=== PATIENT | female | born 1975 | race Caucasian/White ===

== ENCOUNTER 2023-02-15 21:17 | Emergency (ER) | payer BC, SELFPAY ==
[2023-02-15] VITALS (12 sets, daily range): BP systolic 113–148; BP diastolic 74–93; PULSE 88–110; RESP 16–22; TEMP 36.4; O2SAT 94–100
--- NOTE | 2023-02-15 21:33 | ED.GENADUL1 ---
HPI - General Adult General Chief complaint: Shortness of Breath/Dyspnea Stated complaint: shortness of breath Time Seen by Provider: 02/15/23 21:23 Source: patient Mode of arrival: Wheelchair History of Present Illness HPI narrative: Patient started control pills about 6 months ago to help with her uterine fibroids and menorrhagia. She does not smoke. She denied any airline flights, periods of inactivity or other actions that might have led to DVT or PE. However last week she developed some shortness of breath. She saw her PCP in [place] 2 days ago and had blood testing including D-Dimer. When the D-Dimer was positive she was sent for CTA chest. That apparently revealed pulmonary emboli so she was sent to the ED. She said that they found 3 areas of DVT on right LE US. She received 10mg dose of Eliquis last evening and was discharged home with prescription for additional Eliquis - she has taken two additional doses today. She now presents to our ED. She told me that she did not have a good experience at [place] [facility] but could not elaborate. That is why she came to [place] to be re-evaluated. No fever, chills, cough, vomiting or diarrhea. No abdominal pain or chest pain. No syncope but on questioning she did tell me that she got a little bit dizzy today . Related Data Home Medications Medication Instructions Recorded Confirmed apixaban 5 mg tablet (Eliquis) 5 mg PO BID 02/15/23 02/15/23 bisoprolol 5 1 tab PO DAILY 02/15/23 02/15/23 mg-hydrochlorothiazide 6.25 mg tablet levothyroxine 125 mcg tablet 125 mcg PO DAILY 02/15/23 02/15/23 (Synthroid) megestrol 20 mg tablet 20 mg PO DAILY 02/15/23 02/15/23 metformin 500 mg tablet,extended 500 mg PO DAILY 02/15/23 02/15/23 release 24 hr norgestimate 0.25 mg-ethinyl 1 tab PO DAILY 02/15/23 02/15/23 estradiol 35 mcg tablet pantoprazole 40 mg tablet,delayed 40 mg PO DAILY 02/15/23 02/15/23 release polysaccharide iron complex 180 mg 180 mg PO BID 02/15/23 02/15/23 iron capsule (Pro Fe) tramadol 50 mg tablet 50 mg PO TID PRN pain 02/15/23 02/15/23 Allergies Allergy/AdvReac Type Severity Reaction Status Date / Time No Known Drug Allergies Allergy Verified 02/15/23 21:22 Exam Narrative Exam Narrative: Nurses notes and vital signs reviewed and patient is not hypoxic. afebrile General: Well-appearing and in no apparent distress. Skin: Warm, dry, no pallor noted. No rash. Head: Normocephalic, atraumatic. Eye: Pupils are equal, round and EOMI. No scleral icterus. Cardiovascular: Tachycardia. Respiratory: No accessory muscle use or respiratory distress. Lungs are clear to auscultation, no wheezing, rales or rhonchi Musculoskeletal: normal ROM, right calf and popliteal tenderness, right lower extremity swelling GI: Abdomen is soft, non-distended. Normal bowel sounds. No tenderness to palpation. No rebound, guarding, or rigidity noted. Neurological: A&O x4. No cranial nerve dysfunction observed. No truncal ataxia. Moves all extremities. Sensation intact. Psychiatric: Cooperative and interactive. Normal mood and affect. Constitutional Vital Signs, click to edit/add: Last Vital Signs Temp 97.6 F 02/15/23 21:22 Pulse 90 02/15/23 23:00 Resp 20 02/15/23 23:00 BP 128/85 02/15/23 23:00 Pulse Ox 94 L 02/15/23 23:00 O2 Del Method Room Air 02/15/23 21:31 Course Vital Signs Vital signs: Vital Signs Temperature 97.6 F 02/15/23 21:22 Pulse Rate 109 H 02/15/23 21:22 Respiratory Rate 20 02/15/23 21:22 Blood Pressure 148/88 H 02/15/23 21:22 Pulse Oximetry 99 02/15/23 21:22 Oxygen Delivery Method Room Air 02/15/23 21:22 Temperature 97.6 F 02/15/23 21:22 Pulse Rate 90 02/15/23 23:00 Respiratory Rate 20 02/15/23 23:00 Blood Pressure 128/85 02/15/23 23:00 Pulse Oximetry 94 L 02/15/23 23:00 Oxygen Delivery Method Room Air 02/15/23 21:31 Medical Decision Making MDM Narrative Medical decision making narrative: Patient was placed on nurse monitoring and EKG obtained. Blood drawn and sent for evaluation. I asked the emergency secretary board of commissioners to call over to the emergency Department to receive a copy of the patient's Emergency Department visit documentation. Repeat CT anterior chest was ordered. Normal WBC. Hb 8.8 - was 9.2 yesterday. No active bleeding. MC indices consistent with iron deficiency, for which she gets iron infusions. BMP normal. Troponin and BNP negative. Radiologist called to speak with me - he notes PE in every right lobe of the lung and in the LLL. He sees right ventricular enlargement suggestive of right heart strain. Case discussed with Dr Lares, including radiologist's findings - he recommended discharging the patient home, having her continue her Eliquis and he will see her in the office and get an out-patient echocardiogram and monitor the patient's progress. Patient informed of findings and details of diagnosis and treatment plan discussed including follow up with Dr Lares. Discussed that for the first 7 days the eliquis dose is 10mg BID then 5mg BID after that. Medical Records Medical records reviewed: Yes I reviewed the patient's medical records Medical records narrative: I received a copy of the patient's emergency department chart from [facility]. There is no mention of lower extremity ultrasound on this chart. I also do not have a copy of the patient's CT report. It did indicate that the patient was started on oral L requests after discussion with Dr. Sanches. EKG on that visit was NSR without tachycardia. Troponin was negative. Lab Data Lab results reviewed: Yes I reviewed the patient's lab results Labs: Lab Results 02/15/23 Range/Units 21:50 WBC 5.0 (4.0-11.0) 10^3/uL RBC 4.57 (4.20-5.40) 10^6/uL Hgb 8.8 L (12.0-16.0) g/dL Hct 31.8 L (36.0-48.0) % MCV 69.6 L (81.0-99.0) fL MCH 19.3 L (26.7-34.0) pg MCHC 27.7 L (29.9-35.2) g/dL RDW 18.6 H (11.0-15.0) % Plt Count 198 (150-450) 10^3/uL MPV 10.3 (9.5-13.5) fL Neut % (Auto) 67.7 (43.0-75.0) % Lymph % (Auto) 20.6 (20.5-60.0) % [place] % (Auto) 7.5 (1.7-12.0) % Eos % (Auto) 3.2 (0.9-7.0) % Baso % (Auto) 0.8 (0.2-2.0) % Neut # (Auto) 3.4 (1.4-6.5) 10^3/uL Lymph # (Auto) 1.0 L (1.2-3.8) 10^3/uL [place]inn # (Auto) 0.4 (0.3-0.8) 10^3/uL Eos # (Auto) 0.2 (0.0-0.7) 10^3/uL Baso # (Auto) 0.0 (0.0-0.1) 10^3/uL Abs Immat Gran (auto) 0.01 (0.00-0.03) 10^3/uL Imm/Tot Granulo (auto) 0.2 (0.0-0.5) % Sodium 140 (136-145) mmol/L Potassium 4.0 (3.5-5.1) mmol/L Chloride 106 (98-107) mmol/L Carbon Dioxide 24.5 (21.0-32.0) mmol/L Anion Gap 13.5 BUN 7.0 (7.0-18.0) mg/dL Creatinine 0.94 (0.55-1.02) mg/dL Est GFR ( Amer) >60 (>=60) Est GFR (Non-Af Amer) >60 (>=60) BUN/Creatinine Ratio 7.4 Glucose 208 H (74-106) mg/dL Calcium 8.7 (8.5-10.1) mg/dL Troponin I High Sens 6.8 (4.0-51.3) pg/mL NT-Pro-B Natriuret Pep 243.0 (<=450.0) pg/mL Imaging Data CT scan - chest: Radiologist's impression: Patient Name: HERNANDO DURAND MRN: [id number] date: 1975 Sex: F Assigned Patient Location: ER Current Patient Location: ER Accession/Order Number: [id number] Exam Date: 02/15/2023 22:00 Report Date: 02/15/2023 22:45 At the request of: RITA CASTRO Procedure: CT angio chest EXAM: CTA chest. CLINICAL SYMPTOMS: Female, 47 years, shortness of breath, pulmonary emboli. COMPARISONS: None. TECHNIQUE: Helical CTA of the pulmonary arteries was performed following rapid injection of intravenous contrast with coronal and sagittal MIP images following the administration of IV contrast. Dose reduction techniques were achieved by using automated exposure control and/or adjustment of mA and/or KVP according to patient size and/or use of iterative reconstruction technique. FINDINGS: Neck/Mediastinum: Calcified nodule of the right thyroid lobe is subcentimeter. No supraclavicular, mediastinal, hilar or axillary lymphadenopathy. Cardiovascular: Normal heart size without pericardial effusion or thickening. Normal caliber of the ascending thoracic aorta and main pulmonary artery. There are central filling defects within the lobar branches of the left lower lobe and right upper, middle and lower lobes. There is sequelae of right heart strain. Lungs/pleura/airways: No pneumothorax, pleural effusion or consolidation. No concerning pulmonary nodules. The trachea and mainstem bronchi are clear. Upper Abdomen: Unremarkable appearance of the imaged upper abdomen. Musculoskeletal/Soft Tissues: No acute fracture or aggressive osseous abnormality. Normal appearance of the soft tissues. IMPRESSION: Bilateral pulmonary emboli with sequelae of right heart strain. Dr. Rothman discussed the above findings with Dr. Castro at 2246 on 02/15/2023 by telephone. Electronically authenticated by: KELSEY ROTHMAN Date: 02/15/2023 22:45 ECG Data Interpretation: EKG interpretation: Emergency Department physician interpretation. Sinus tachycardia at 102bpm. Normal axis, normal intervals and no ST segment elevation or depression. Discharge Plan Discharge Chief Complaint: Shortness of Breath/Dyspnea Clinical Impression: Deep venous embolism and thrombosis of right lower extremity, Iron deficiency anemia, Pulmonary embolism Patient Disposition: Home, Self-Care Time of Disposition Decision: 23:23 Prescriptions / Home Meds: No Action Eliquis 5 mg tablet 5 mg PO BID bisoprolol-hydrochlorothiazide 5-6.25 mg tablet 1 tab PO DAILY levothyroxine [Synthroid] 125 mcg tablet 125 mcg PO DAILY megestrol 20 mg tablet 20 mg PO DAILY norgestimate-ethinyl estradiol 0.25-35 mg-mcg tablet 1 tab PO DAILY metformin 500 mg tablet extended release 24 hr 500 mg PO DAILY pantoprazole 40 mg tablet,delayed release (DR/EC) 40 mg PO DAILY Pro Fe 180 mg iron capsule 180 mg PO BID tramadol 50 mg tablet 50 mg PO TID PRN (Reason: pain) Instructions: Pulmonary Embolism (ED), Deep Vein Thrombosis (ED) Stand Alone Forms: Portal Instructions Referrals: Physician,Non-Staff, MD [Primary Care Provider] - 1 week
--- NOTE | 2023-02-15 21:45 | ECG_ITS ---
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
--- NOTE | 2023-02-15 21:46 | CT_ITS ---
The [address] [address] Patient Name: HERNANDO DURAND MRN: [id number] date: 1975 Sex: F Assigned Patient Location: ER Current Patient Location: Accession/Order Number: [id number] Exam Date: 02/15/2023 22:00 Report Date: 02/15/2023 22:45 At the request of: RITA CASTRO Procedure: CT angio chest EXAM: CTA chest. CLINICAL SYMPTOMS: Female, 47 years, shortness of breath, pulmonary emboli. COMPARISONS: None. TECHNIQUE: Helical CTA of the pulmonary arteries was performed following rapid injection of intravenous contrast with coronal and sagittal MIP images following the administration of IV contrast. Dose reduction techniques were achieved by using automated exposure control and/or adjustment of mA and/or KVP according to patient size and/or use of iterative reconstruction technique. FINDINGS: Neck/Mediastinum: Calcified nodule of the right thyroid lobe is subcentimeter. No supraclavicular, mediastinal, hilar or axillary lymphadenopathy. Cardiovascular: Normal heart size without pericardial effusion or thickening. Normal caliber of the ascending thoracic aorta and main pulmonary artery. There are central filling defects within the lobar branches of the left lower lobe and right upper, middle and lower lobes. There is sequelae of right heart strain. Lungs/pleura/airways: No pneumothorax, pleural effusion or consolidation. No concerning pulmonary nodules. The trachea and mainstem bronchi are clear. Upper Abdomen: Unremarkable appearance of the imaged upper abdomen. Musculoskeletal/Soft Tissues: No acute fracture or aggressive osseous abnormality. Normal appearance of the soft tissues. CT/CT angio chest IMPRESSION: Bilateral pulmonary emboli with sequelae of right heart strain. Dr. Rothman discussed the above findings with Dr. Castro at 224 on 02/15/2023 by telephone. Electronically authenticated by: KELSEY ROTHMAN Date: 02/15/2023 22:45
[2023-02-15 22:02] LABS: Basophils Percent Auto 0.8 % (0.2-2.0); Eosinophils Absolute Auto 0.2 10^3/uL (0.0-0.7); Eosinophils Percent Auto 3.2 % (0.9-7.0); Hematocrit 31.8 % (36.0-48.0); Hemoglobin 8.8 g/dL (12.0-16.0); Immature Granulocytes Abs Auto 0.01 10^3/uL (0.00-0.03); Immature Granulocytes Pct Auto 0.2 % (0.0-0.5); Lymphocytes Percent Auto 20.6 % (20.5-60.0); Mean Corpuscular HGB Conc 27.7 g/dL (29.9-35.2); Mean Corpuscular Hemoglobin 19.3 pg (26.7-34.0); Mean Corpuscular Volume 69.6 fL (81.0-99.0); Mean Platelet Volume 10.3 fL (9.5-13.5); Monocytes Absolute Auto 0.4 10^3/uL (0.3-0.8); Monocytes Percent Auto 7.5 % (1.7-12.0); Neutrophils Absolute Auto 3.4 10^3/uL (1.4-6.5); Neutrophils Percent Auto 67.7 % (43.0-75.0); Platelet Count 198 10^3/uL (150-450); Red Blood Count 4.57 10^6/uL (4.20-5.40); Red Cell Distribution Width 18.6 % (11.0-15.0)
[2023-02-15 22:14] LABS: Anion Gap 13.5; BUN Creatinine Ratio 7.4; Calcium 8.7 mg/dL (8.5-10.1); Carbon Dioxide 24.5 mmol/L (21.0-32.0); Chloride 106 mmol/L (98-107); Estimated GFR (African America >60 (>=60); Estimated GFR (Non-African Ame >60 (>=60); Glucose 208 mg/dL (74-106); Sodium 140 mmol/L (136-145)
[2023-02-15 23:09] LABS: Troponin I High Sensitivity 6.8 pg/mL (4.0-51.3)
== END 2023-02-15 23:40 | disposition home or self-care (01) ==
PROVIDERS: Emergency Provider Emergency Medicine
DX: I26.99 Other pulmonary embolism without acute cor pulmonale (principal); I82.401 Acute embolism and thrombosis of unspecified deep veins of right lower extremity; D50.9 Iron deficiency anemia, unspecified; Z79.01 Long term (current) use of anticoagulants; Z79.890 Hormone replacement therapy; Z79.899 Other long term (current) drug therapy; R06.02 Shortness of breath
CPT/HCPCS: 36415; 71275; 80048; 83880; 84484; 85025; 93005; 99285; Q9967

== ENCOUNTER 2023-02-28 07:31 | Outpatient (RCR) | payer BC, SELFPAY ==
[2023-02-16 14:47] VITALS: BP 146/78; PULSE 89; RESP 20; TEMP 36.2; O2SAT 96
[2023-02-16] MEDS: IRON SUCROSE COMPLEX 100 MG in 0.9 % SODIUM CHLORIDE 100 ML 420 MG IV (14:51)
--- NOTE | 2023-02-16 15:12 | PC.NURSE ---
IV venofer infused, tolerated well. IV dc'd from left forearm, tolerated well. 1515 Released ambulatory with . Instructed on returning for 2nd and 3rd infusion next sunday and sunday. Verbalizes understanding
[2023-02-19] MEDS: IRON SUCROSE COMPLEX 200 MG in 0.9 % SODIUM CHLORIDE 100 ML 220 MG IV (12:31)
[2023-02-21 11:30] VITALS: BP 126/70; PULSE 80; RESP 16; TEMP 35.9; O2SAT 98
[2023-02-21] MEDS: IRON SUCROSE COMPLEX 200 MG in 0.9 % SODIUM CHLORIDE 100 ML 420 MG IV (11:46)
--- NOTE | 2023-02-21 12:02 | PC.NURSE ---
1130: Pt. to CCIs amb per self. Seated in recliner. VSS. Denies c/o dyspnea or chest pain. #22 gauge IV initiated to right forearm on first attempt without difficulty. Flushes easily. Pt. tolerated without c/o 1146: IV Venofer initiated as ordered. Pt. drinking water. Denies needs. 1202: IV Venofer completed without adverse reaction. IV d/c'd, pressure to site. Pt. d/c'd to home.
[2023-02-23 10:09] VITALS: BP 127/77; PULSE 77; RESP 18; TEMP 36.3; O2SAT 98
[2023-02-23] MEDS: IRON SUCROSE COMPLEX 100 MG in 0.9 % SODIUM CHLORIDE 100 ML 420 MG IV (10:55)
[2023-02-26 10:00] VITALS: BP 120/78; PULSE 83; RESP 18; TEMP 36.1; O2SAT 99
--- NOTE | 2023-02-26 10:00 | PC.NURSE ---
1000: Pt. to CCIS amb. Seated in recliner. VSS. Denies c/o. #22 gauge IV initiated to right hand on first attempt. Pt. tolerated without c/o. Denies needs.
[2023-02-26] MEDS: IRON SUCROSE COMPLEX 200 MG in 0.9 % SODIUM CHLORIDE 100 ML 220 MG IV (10:20)
--- NOTE | 2023-02-26 10:20 | PC.NURSE ---
1020: IV Venofer initiated at this time.
--- NOTE | 2023-02-26 10:53 | PC.NURSE ---
1052: IV Venofer complete. Pt. without s&s of adverse reaction. IV d/c'd pressure to site. 1053: Pt. d/c'd amb. to home
[2023-02-28 10:19] VITALS: BP 112/63; PULSE 87; RESP 16; TEMP 36.2; O2SAT 98
[2023-02-28] MEDS: IRON SUCROSE COMPLEX 200 MG in 0.9 % SODIUM CHLORIDE 100 ML 220 MG IV (10:23)
--- NOTE | 2023-02-28 10:26 | PC.NURSE ---
1000 Arrival to chair 1 ambulatory, alert oriented no comlaints offered. #24 IV initiated rt forearm on 1st attempt, tolerated well.
--- NOTE | 2023-02-28 10:47 | PC.NURSE ---
1045 venofer infusion completed. line flushed with NSS. catheter dc'd. site clear.
== END 2023-03-03 23:59 | disposition home or self-care (01) ==
LOC: INF 07:31
PROVIDERS: Visit Provider Obstetrics & Gynecology
DX: D50.9 Iron deficiency anemia, unspecified (principal)
CPT/HCPCS: 96365; J1756

== ENCOUNTER 2023-09-04 10:57 | Outpatient (OUT) | payer BC, SELFPAY ==
--- NOTE | 2023-09-04 11:01 | US_ITS ---
The [address] [address] Patient Name: HERNANDO DURAND MRN: [id number] date: 1975 Sex: F Assigned Patient Location: Current Patient Location: Accession/Order Number: [id number] Exam Date: 09/04/2023 11:03 Report Date: 09/05/2023 06:33 At the request of: PACO RAO Procedure: US pelvis w/ transvaginal EXAMINATION: US pelvis w/ transvaginal HISTORY: abnormal uterine bleeding N93.9 COMPARISON: No relevant comparison available. TECHNIQUE: Transabdominal and/or transvaginal sonographic examination was performed as indicated by examination type. FINDINGS: UTERUS: Heterogeneous echotexture containing several leiomyomas, largest is 5.4 cm. Uterus size: Posterior wall leiomyoma appears to contact the endometrium. ENDOMETRIUM: Normal homogeneous appearance. Endometrial thickness: 6 mm RIGHT OVARY: Normal size and appearance. Blood flow present within ovary on color Doppler. Ovary size: 2.4 x 2.2 x 1.8 cm LEFT OVARY: Normal size and appearance. Duplex Doppler demonstrates normal waveform and flow; resistive index 0.5. Ovary size: 2.9 x 2.0 x 1.5 cm CUL-DE-SAC: Unremarkable. No significant free fluid. BLADDER: Unremarkable. OTHER: None. US/US pelvis w/ transvaginal IMPRESSION: 1. Multiple leiomyomas within the uterus, with at least one of the leiomyomas appearing to contact the endometrial lining which may contribute to patient's symptoms. Electronically authenticated by: PATTY EASLEY Date: 09/05/2023 06:33
== END 2023-09-04 10:58 | disposition home or self-care (01) ==
LOC: US 10:57
PROVIDERS: Visit Provider Obstetrics & Gynecology
DX: N93.9 Abnormal uterine and vaginal bleeding, unspecified (principal); D25.9 Leiomyoma of uterus, unspecified
CPT/HCPCS: 76830; 76856

== ENCOUNTER 2023-10-09 11:05 | Outpatient (OUT) | payer BC, SELFPAY ==
--- NOTE | 2023-10-09 11:13 | ECG_ITS ---
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
[2023-10-09 12:22] LABS: Anion Gap 12.6; BUN Creatinine Ratio 10.5; Calcium 9.7 mg/dL (8.5-10.1); Carbon Dioxide 26.5 mmol/L (21.0-32.0); Chloride 105 mmol/L (98-107); Estimated GFR (African America >60 (>=60); Estimated GFR (Non-African Ame >60 (>=60); Glucose 204 mg/dL (74-106); Potassium 4.1 mmol/L (3.5-5.1); Sodium 140 mmol/L (136-145)
== END 2023-10-09 11:06 | disposition home or self-care (01) ==
LOC: PST 11:08
PROVIDERS: Visit Provider Obstetrics & Gynecology
DX: Z01.810 Encounter for preprocedural cardiovascular examination (principal); Z01.812 Encounter for preprocedural laboratory examination; N92.0 Excessive and frequent menstruation with regular cycle; N93.9 Abnormal uterine and vaginal bleeding, unspecified; R10.2 Pelvic and perineal pain
CPT/HCPCS: 36415; 80048; 93005

== ENCOUNTER 2023-12-11 09:53 | Outpatient (OUT) | payer BC, SELFPAY ==
--- NOTE | 2023-12-11 10:28 | PM.PRESUREVA ---
History of Present Illness History of Present Illness Chief complaint: request for sterilization, abnormal bleeding Narrative: Patient presents for preadmission testing. The patient reports a history of heavy painful periods. The patient was evaluated in preadmission testing in October of this year, she was known to have prediabetes at that time and did have a serum blood glucose of 204 AndWhich had been her approximate baseline. On the day of her scheduled procedure it was found that her glucose was above 400 and her procedure was postponed. She states she followed up with her PCP and her A1c was found to be above 9. They doubled her frequency of metformin to 500 mg twice daily and added 10 mg of Jardiance. The patient states she has intentionally lost weight and her A1c is down around 6. Review of Systems ROS Narrative REVIEW OF SYSTEMS: Negative except as stated in HPI, ten or more systems reviewed. Constitutional: No fever, chills, weakness ENT: No sore throat or epistaxis Cardiovascular: No edema, chest pain, palpitations, or activity intolerance Respiratory: No shortness of breath, cough, or wheezing Musculoskeletal: No joint pain or swelling Gastrointestinal: No abdominal pain, constipation, diarrhea, or vomiting Genitourinary: No dysuria or hematuria Neurological: No numbness, tingling, weakness, or headache Psychiatric: No mood changes [facility]SH [facility] Medical History (Updated 12/11/23 @ 10:16 by Yamilka Delatorre NP) Joint pain ?M25.50 - Pain in unspecified joint (ICD-10) Diabetes (~10/2023) ?E11.9 - Type 2 diabetes mellitus without complications (ICD-10) Arthritis ?M19.90 - Unspecified osteoarthritis, unspecified site (ICD-10) Deep vein thrombosis ?I82.409 - Acute embolism and thrombosis of unspecified deep veins of unspecified lower extremity (ICD-10) Anemia ?D64.9 - Anemia, unspecified (ICD-10) COVID-19 ?U07.1 - COVID-19 (ICD-10) Migraine ?G43.909 - Migraine, unspecified, not intractable, without status migrainosus (ICD-10) Request for sterilization ?Z30.2 - Encounter for sterilization (ICD-10) Menorrhagia ?N92.0 - Excessive and frequent menstruation with regular cycle (ICD-10) Abnormal uterine bleeding ?N93.9 - Abnormal uterine and vaginal bleeding, unspecified (ICD-10) Pelvic pain ?R10.2 - Pelvic and perineal pain (ICD-10) Heartburn ?R12 - Heartburn (ICD-10) GERD (gastroesophageal reflux disease) ?K21.9 - Gastro-esophageal reflux disease without esophagitis (ICD-10) Hypertension ?I10 - Essential (primary) hypertension (ICD-10) High cholesterol ?E78.00 - Pure hypercholesterolemia, unspecified (ICD-10) Hypothyroidism ?E03.9 - Hypothyroidism, unspecified (ICD-10) Prediabetes ?R73.03 - Prediabetes (ICD-10) Surgical History (Updated 10/09/23 @ 11:31 by Yamilka Delatorre NP) History of esophagogastroduodenoscopy (EGD) ?Z98.890 - Other specified postprocedural states (ICD-10) History of section ?Z98.891 - History of uterine scar from previous surgery (ICD-10) Family History (Updated 10/09/23 @ 11:31 by Yamilka Delatorre NP) Other Family history of diabetes mellitus Family history of heart disease Family history of hypertension Family history of myocardial infarction Family history of pancreatic cancer Family history of stroke Social History (Updated 10/09/23 @ 11:25 by Yamilka Delatorre NP) Within the past year, how often did you have a drink containing alcohol: monthly or less Smoking status: Never smoker Non-prescribed substance use: denies use 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 Highest level of school completed/degree received: Associate degree: academic program Meds Home Medications and Allergies Home Medications ?Medication ?Instructions ?Recorded ?Confirmed ?Type bisoprolol 5 1 tab PO QPM 02/15/23 10/09/23 History mg-hydrochlorothiazide 6.25 mg tablet levothyroxine 125 mcg tablet 125 mcg PO DAILY 02/15/23 10/09/23 History (Synthroid) metformin 500 mg tablet,extended 500 mg PO BID 02/15/23 12/11/23 History release 24 hr pantoprazole 40 mg tablet,delayed 40 mg PO DAILY 02/15/23 10/09/23 History release medroxyprogesterone 10 mg tablet 10 mg PO DAILY 02/28/23 10/09/23 History (Provera) atorvastatin 10 mg tablet 10 mg PO DAILY 10/09/23 10/09/23 History calcium 100 mg capsule 100 mg PO DAILY 10/09/23 12/11/23 History cholecalciferol (vitamin D3) 25 25 mcg PO DAILY 10/09/23 10/09/23 History mcg (1,000 unit) capsule empagliflozin 10 mg tablet 10 mg PO DAILY 12/11/23 12/11/23 History (Jardiance) Allergies Allergy/AdvReac Type Severity Reaction Status Date / Time No Known Drug Allergies Allergy Verified 12/11/23 10:11 Exam Narrative Exam Narrative: Constitutional: Awake, alert, comfortable, well-appearing, nontoxic, interactive, vital signs as charted Head: Normocephalic, atraumatic Neck: Supple, normal appearance, normal range of motion, no meningeal signs, no lymphadenopathy Respiratory: No respiratory distress, breath sounds clear Cardiovascular: Regular rate and rhythm, strong and regular heart tones Abdomen: Nontender, normal bowel sounds, soft, no CVA tenderness Musculoskeletal: Normal gait, no swelling or edema Skin: No rashes or induration, no lesions, only visible skin inspected Neuro: No neurological deficits, normal sensation Psychiatric: Oriented ?3, normal affect Assessment and Plan Assessment and Plan (1) Abnormal uterine bleeding: (2) Menorrhagia: (3) Request for sterilization: (4) Pelvic pain: Plan Robot-assisted bilateral laparoscopic salpingectomy and endometrial ablation/Jolanta scheduled with Dr. Sanches December 21, 2023.
[2023-12-11 10:44] LABS: Anion Gap 9.2; BUN Creatinine Ratio 17.1; Calcium 9.3 mg/dL (8.5-10.1); Chloride 106 mmol/L (98-107); Estimated GFR (African America >60 (>=60); Estimated GFR (Non-African Ame >60 (>=60); Glucose 114 mg/dL (74-106); Potassium 4.2 mmol/L (3.5-5.1); Sodium 140 mmol/L (136-145)
== END 2023-12-11 09:54 | disposition home or self-care (01) ==
LOC: PST 09:53
PROVIDERS: PCP Nurse Practitioner; Visit Provider Obstetrics & Gynecology
DX: Z01.812 Encounter for preprocedural laboratory examination (principal); Z01.818 Encounter for other preprocedural examination; N92.0 Excessive and frequent menstruation with regular cycle; N93.9 Abnormal uterine and vaginal bleeding, unspecified; R10.2 Pelvic and perineal pain
CPT/HCPCS: 80048; G0463

== ENCOUNTER 2023-12-21 06:50 | Day surgery (SDC) | payer BC, SELFPAY ==
[2023-10-09 11:46] VITALS: BP 128/96; PULSE 70; TEMP 36.4; O2SAT 96; BMI 32.6
[2023-12-11 10:26] VITALS: BP 124/81; PULSE 61; TEMP 36.3; O2SAT 97; BMI 29.6
[2023-12-21] VITALS (15 sets, daily range): BP systolic 109–137; BP diastolic 15–82; PULSE 55–81; TEMP 36.1; O2SAT 93–98; BMI 29.2; BMI 29.4
--- OUTSIDE RECORDS SUMMARY | 2023-12-21 06:53 | XMS_ITS | CCD ---
Author Organization [facility] Care Team Providers Care Tank Cleaning Supervisor Name Role Phone Rine, Kristina L Unavailable SOOD, MELO Unavailable Unavailable SOOD, MELO Unavailable Unavailable RINE, KRISTINA L Unavailable Unavailable RINE, KRISTINA L Unavailable Unavailable Rine, Kristina L Primary Care Provider Rine, Kristina L Primary Care Provider Rine, Kristina L Primary Care Provider [phone] Rine, Kristina L Primary Care Provider Rine, Kristina L Primary Care Provider JALEN PACO R Referring Unavailable RINE, KRISTINA L Primary Care Unavailable Yonathan Dietrich MD Attending Unavailable Rine PARKING ASSISTANT, Kristina Shabana Primary Care Unavailable Yonathan Dietrich MD Attending Unavailable Rine PARKING ASSISTANT, Kristina Shabana Primary Care Unavailable Yonathan Dietrich MD Attending Unavailable Rine PARKING ASSISTANT, Kristina Shabana Primary Care Unavailable Yonathan Dietrich MD Attending Unavailable Rine PARKING ASSISTANT, Kristina Shabana Primary Care Unavailable FRUTH, CRISTINA E Attending Unavailable RINE, KRISTINA L Attending Unavailable JALEN, PACO Attending Unavailable JALEN, PACO Attending Unavailable RINE, KRISTINA L Attending Unavailable RINE, KRISTINA L Attending Unavailable RINE, KRISTINA L Attending Unavailable RINE, KRISTINA L Primary Care Unavailable FRUTH, CRISTINA Referring Unavailable RINE, KRISTINA L Primary Care Unavailable AL-CRISTELA, ADNAN R Referring Unavailable AL-CRISTELA, ADNAN R Attending Unavailable RINE, KRISTINA L Referring Unavailable RINE, KRISTINA L Primary Care Unavailable RINE, KRISTINA L Primary Care Unavailable FRUTH, CRISTINA Referring Unavailable RINE, KRISTINA L Primary Care Unavailable AL-CRSITELA, ADNAN R Referring Unavailable DEV LUJAN Attending Unavailable KRISTINA WILKERSON Primary Care Unavailable KRISTINA WILKERSON Primary Care Unavailable CRISTINA ENNIS Referring Unavailable CRISTINA ENNIS Referring Unavailable KRISTINA WILKERSON Primary Care Unavailable Allergies Allergy Classification Reported Allergen(s) Allergy Type Date of Onset Reaction(s) Facility Unclassified (1 source) No Known Medication Allergies; Translations: [No Known Medication Allergies] Propensity to adverse reactions to drug (disorder) [facility] Repository Medications Current Medications Medication Drug Class(es) Dates Sig (Normalized) Sig (Original) apixaban 5 mg oral tablet (2 sources) Factor Xa Inhibitor Start: 02-14-2023 apixaban (ELIQUIS) tablet 10 mg Start: 02-14-2023 End: 02-21-2023 take 2 tablets by mouth twice daily apixaban (ELIQUIS) 5 MG TABS tablet Take 2 tablets by mouth 2 times daily for 7 days 28 tablet 0 02/14/2023 02/21/2023 Active bisoprolol fumarate 5 mg / hydroCHLOROthiazide 6.25 mg oral tablet (4 sources) Thiazide Diuretic, beta-Adrenergic Masha Start: 07-23-2022 bisoprolol-hydroCHLOROthiazi de (ZIAC) 5-6.25 MG per tablet Start: 05-12-2017 take 1 tablet by brenda th once daily bisoprolol-hydrochlorothiazide (ZIAC) 5- 6.25 mg per tablet Take 1 tablet by mouth daily. 05/12/2017 Active ethinyl estradiol 0.035 mg / norgestimate 0.25 mg oral tablet (3 sources) Progestin, Estrogen Start: 08-22-2022 take 1 tablet by mouth once daily, then take 0.25-35 tablets by mouth once norgestimate-ethinyl estradiol (ORTHO-CYCLEN) 0.25-35 MG-MCG per tablet Take 1 tablet by mouth daily 0 08/22/2022 Active ferrous sulfate 324 mg delayed release oral tablet (3 sources) Start: 08-02-2022 take 1 tablet by mouth once daily ferrous sulfate 324 (65 Fe) MG EC tablet Take 1 tablet by mouth daily 0 08/02/2022 Active levothyroxine sodium 0.125 mg oral tablet (3 sources) l-Thyroxine Start: 07-23-2022 SYNTHROID 125 MCG tablet meloxicam 15 mg oral tablet (1 source) Nonsteroidal Anti-inflammatory Drug Start: 05-01-2017 take 1 tablet by mouth once daily meloxicam (MOBIC) 15 MG tablet Take 1 tablet by mouth daily. 05/01/2017 Active 24 hr metFORMIN hydrochloride 500 mg extended release oral tablet (3 sources) Biguanide Start: 08-31-2022 take 1 tablet by mouth once daily at dinner metFORMIN (GLUCOPHAGE-XR) 500 MG extended release tablet take 1 tablet by mouth every evening with EVENING MEAL 0 08/31/2022 Active minocycline 100 mg oral capsule (1 source) Tetracycline-clas s Drug take 1 capsule by mouth once daily, then take 1 capsule by mouth minocycline (MINOCIN,DYNACIN) 100 MG capsule Take 100 mg by mouth daily. Active pantoprazole 40 mg delayed release oral tablet (4 sources) Proton Pump Inhibitor Start: 07-23-2022 pantoprazole (PROTONIX) 40 MG tablet Start: 05-20-2017 take 1 tablet by brenda th once daily pantoprazole (PROTONIX) 40 MG tablet Take 1 tablet by mouth daily. 05/20/2017 Active raNITIdine 150 mg oral tablet (1 source) Histamine-2 Receptor Antagonist Start: 04-09-2017 take 1 tablet by mouth twice daily ranitidine (ZANTAC) 150 MG tablet Take 1 tablet by mouth 2 (two) times a day . 04/09/2017 Active tiZANidine 4 mg oral capsule (1 source) Central alpha-2 Adrenergic Agonist take 1 capsule by mouth once as needed for muscle spasms, then take 1 capsule by mouth as needed for muscle spasms tiZANidine (ZANAFLEX) 4 MG capsule Take 4 mg by mouth nightly as needed for muscle spasms. Active Completed/Discontinued Medications Medication Drug Class(es) Dates Sig (Normalized) Sig (Original) iopamidol (ISOVUE-370) 76 % injection 75 mL (1 source) Start: 02-14-2023 End: 02-14-2023 iopamidol (ISOVUE-370) 76 % injection 75 mL Problems Active Problems Problem Classification Problem Date Documented Da te Episodic/Chronic Deficiency and other anemia (1 source) Iron deficiency anemia secondary to blood loss (chronic); Translations: [Iron deficiency anemia secondary to blood loss (chronic)] Onset: 07-24-2023 Chronic Diabetes mellitus without complication (1 source) Other abnormal glucose; Translations: [Other abnormal glucose] Onset: 10-12-2023 Episodic Essential hypertension (2 sources) Essential (primary) hypertension; Translations: [Essential (primary) hypertension] Onset: 02-14-2023 Chronic Menstrual disorders (1 source) Excessive and frequent menstruation with irregular cycle; Translations: [Excessive and frequent menstruation with irregular cycle] Onset: 07-24-2023 Chronic Other lower respiratory disease (1 source) Dyspnea; Translations: [Dyspnea, unspecified] 02-14-2023 Episodic Other screening for suspected conditions (not mental disorders or infectious disease) (5 sources) Patient encounter status; Translations: [Encounter for screening mammogram for malignant neoplasm of breast] Onset: 02-14-2023 Episodic Thyroid disorders (1 source) Non-toxic uninodular goiter; Translations: [Nontoxic uninodular goiter] Chronic Unclassified (2 sources) Patient encounter status; Translations: [Breast cancer screening by mammogram] Past or Other Problems Problem Classification Problem Date Documented Date Episodic/Chronic Immunizations and screening for infectious disease (2 sources) Other specified abnormal immunological findings in serum; Translations: [Other specified abnormal immunological findings in serum] Onset: 06-11-2017 Episodic Other connective tissue disease (2 sources) Myalgia; Translations: [Myalgia] Onset: 06-11-2017 Episodic Other connective tissue disease (1 source) Pain in right lower leg; Translations: [Pain in right lower leg] Onset: 02-14-2023 Episodic Other lower respiratory disease (1 source) Dyspnea, unspecified; Translations: [Dyspnea, unspecified] Onset: 02-14-2023 Episodic Other nervous system disorders (2 sources) Anesthesia of skin; Translations: [Anesthesia of skin] Onset: 06-11-2017 Episodic Pulmonary heart disease (2 sources) Pulmonary embolism; Translations: [Other pulmonary embolism without acute cor pulmonale] Onset: 02-28-2023 02-14-2023 Episodic Results Test Name Value Interpretation Reference Range Facility BOB MEGHAN DIGITAL SCREEN CRISTY Membreno 12-05-2023 [facility] MEGHAN DIGITAL SCREEN BILATERAL EXAMINATION: SCREENING DIGITAL BILATERAL MAMMOGRAM WITH TOMOSYNTHESIS, 12/04/2023 TECHNIQUE: Screening mammography was performed with tomosynthesis including MLO and CC views of the bilateral breasts. Computer aided detection was used for the interpretation of this exam. COMPARISON: November 10, 2022 and August 31, 2021 HISTORY: Screening. FINDINGS: Breasts are composed of scattered fibroglandular density. There is no dominant mass, architectural distortion or concerning grouping of microcalcification in either breast. IMPRESSION: No mammographic evidence of malignancy BIRADS: BIRADS - CATEGORY 1 Negative. Normal interval follow-up is recommended in 12 months. OVERALL ASSESSMENT - NEGATIVE A letter of notification will be sent to the patient regarding the results. The [employer] recommends annual mammograms for women 40 years and older. Interpreted by: Leonidas Russo DO Signed by: Leonidas Russo DO 12/05/23 Final result Normal [facility] BOB [id number] 10-25-2023 BOB Cytoplasmic Pattern-Carmel Not Reported Normal [facility] Comment on above: Performed By: #### A ntinuclear Antibody HEp-2 Substrate-May #### [facility] [address] [place] [address] BOB Lab Comment-Carmel Not Reported Normal [facility] Comment on above: Performed By: #### A ntinuclear Antibody HEp-2 Substrate-May #### [facility] [address] [place] [address] BOB Pattern (2)-Carmel Not Reported Normal [facility] Comment on above: Performed By: #### A ntinuclear Antibody HEp-2 Substrate-May #### [facility] [address] [place] [address] BOB Pattern-Carmel Homogeneous Normal [facility] Comment on above: Result Comment: Test Performed by: [facility] [employer] - [facility] [address] [place] [address] Instrumentation Manager: Isac Thompson M.D. Ph.D.; CLIA# [id number] Performed By: #### A ntinuclear Antibody HEp-2 Substrate-May #### [facility] [address] [place] [address] BOB Titer (2)-Carmel Not Reported Normal [facility] Comment on above: Performed By: #### A ntinuclear Antibody HEp-2 Substrate-May #### [facility] [address] [place] [address] BOB Titer-Rodriguez 1:160 Normal [facility] Comment on above: Performed By: #### A ntinuclear Antibody HEp-2 Substrate-May #### [facility] [address] [place] [address] HEp-2 BOB-Rodriguez Positive Abnormal <1:80 (Negative) [facility] Comment on above: Result Comment: ADDITIONAL INFORMATION Method: Immunofluorescence using HEp-2 cellular substrate. Performed By: #### A ntinuclear Antibody HEp-2 Substrate-May #### [facility] [address] [place] [address] Lupus Profon 10-25-2023 La Interpretation No evidence of a lup us-like anticoagulant based on normal results of PT, aPTT and DRVVT. Normal [facility] Comment on above: Performed By: #### L APT #### [place] [id number] La1 DRVVT 33.2 seconds Normal [facility] Comment on above: Performed By: #### L APT #### [address] [address] La1 Normal Pool 33.2 seconds Normal [facility] Comment on above: Performed By: #### L APT #### [address] [address] La1 Ratio 1.00 ratio Normal 0.10-1.19 [facility] Comment on above: Performed By: #### L APT #### [place] [id number] Phosph-Cardio IgG/M-Mayoon 0 10-25-2023 IgG Phospholip Ab-Rodriguez <9.4 Normal <15.0 (Negative) [facility] Comment on above: Result Comment: Test Performed by: [facility] [employer] - [facility] [address] [place] [address] Instrumentation Manager: Isac Thompson M.D. Ph.D.; CLIA# [id number] Performed By: #### P hospholip Ab (Cardiolip) IgM/IgG Evalua #### [facility] [address] [place] [address] IgM Phospholip Ab-Carmel <9.4 Normal <15.0 (Negative) [facility] Comment on above: Performed By: #### P hospholip Ab (Cardiolip) IgM/IgG Evalua #### [facility] [address] [place] [address] Beta 2 Glycoprotein 1 Abs Ig G and IgM, [facility] 10-24-2023 Beta 2 GP1 Ab IgG-Carmel <9.4 Normal <15.0 (Negative) [facility] Comment on above: Performed By: #### C [id number] #### [facility] [address] [place] [address] Beta 2 GP1 Ab IgM-Carmel <9.4 Normal <15.0 (Negative) [facility] Comment on above: Result Comment: Test Performed by: [facility] [place] [address] Instrumentation Manager: Isac Thompson M.D. Ph.D.; CLIA# [id number] Performed By: #### C [id number] #### [facility] [address] [place] [address] C3-[facility] 10-24-2023 C3-Rodriguez 126 mg/dL Normal 75 - 175 [facility] Comment on above: Result Comment: Test Performed by: [facility] [place] [address] Instrumentation Manager: Isac Thompson M.D. Ph.D.; CLIA# [id number] Performed By: #### C omplement C3-Carmel #### [facility] [address] [place] [address] C4-[facility] 10-24-2023 C4-Rodriguez 14 mg/dL Normal 14 - 40 [facility] Comment on above: Result Comment: Test Performed by: [place] [address] Instrumentation Manager: Isac Thompson M.D. Ph.D.; CLIA# [id number] Performed By: #### C omplement C4-Carmel #### [facility] [address] [place] [address] DS DNA IgG-[facility] 10-24-2023 DS-DNA IgG-Carmel 140 IU/mL High 0 - 99 [facility] Comment on above: Result Comment: Inte rpretation: Positive (>=100) A positive result for anti-double stranded DNA (anti-dsDNA) IgG antibody in the context of antinuclear antibody positivity, specific clinical features and laboratory tests is a diagnostic criterion of systemic lupus erythematosus (SLE). ADDITIONAL INFORMATION On 06/19/2023, [facility] implemented a new Double-Stranded DNA (dsDNA) Antibodies method. If patient was tested on previous method and is undergoing serial monitoring, rebaselining may be indicated. Rebaselining, or testing the current sample on the previous method, is available at no charge, subject to reagent availability. The rebaseline result will be added to this report. Contact [facility] [employer] at within 7 days of initial report issuance to request this service. For [facility] patients, call [phone]. Test Performed by: [facility] [place] [address] Instrumentation Manager: Isac Thompson M.D. Ph.D.; CLIA# [id number] Performed By: #### [place] [address]-[place]el #### [place] [address] .eGFRon 10-23-2023 GFR/1.73 sq M.predicted MDRD (S/P/Bld) [Vol rate/Area] mL/min/{1.73_m2} Normal >=60 [facility] Comment on above: Result Comment: [facility] have implemented the eGFR calculation approach that does not have a coefficient for race and that conforms to the NKF-ASN Task Force Recommendations. Stages of Chronic Kidney Disease GFR Stage 3a Mild to moderate loss of kidney function 59 to 45 Stage 3b Moderate to severe loss of kidney function 44 to 33 Stage 4 Severe loss of kidney function 29 to 15 Stage 5 Kidney failure Less than 15 GFR calculated using the CKD-Epi Creatinine Equation (2020): eGFR = 142 X min(SCr/?, 1)? X max(SCr /?, 1)-1.200 X 0.9938Age X 1.012 [if female] Abbreviations/Units: eGFR (estimated glomerular filtration rate) = mL/min/1.73 m2 SCr (standardized serum creatinine) = mg/dL ? = 0.7 (females) or 0.9 (males) ? = -0.241 (females) or -0.302 (males) min = indicates the minimum of SCr/? or 1 max = indicates the maximum of SCr/? or 1 Age = years Performed By: #### E GFR #### [address] [address] BUNon 10-23-2023 Urea nitrogen [Mass/Vol] 19 mg/dL Normal 8-26 [facility] Comment on above: Performed By: #### B UN #### [place] [address] Creatinineon 10-23-2023 Creatinine [Mass/Vol] 0.99 mg/dL Normal 0.44-1.03 [facility] Comment on above: Performed By: #### C omplement C3-Carmel #### [facility] [address] [place] [address] Lupus Profon 10-23-2023 aPTT Coag (Bld) [Time] 21.7 s Normal 17.3-30.3 [facility] Comment on above: Performed By: #### L APT #### [place] [address] PT La 10.5 seconds Normal 8.5-12.7 [facility] Comment on above: Performed By: #### L APT #### [place] [id number] Rheumatology Office/Clinic N oteon 10-23-2023 Rheumatology Office/Clinic Note Chief Complaint Follow up BOB+ History of Present Illness Patient is here for follow-up today. She is doing well overall. However, last fall she developed DVT/PE, and finished 6 months of anticoagulation. Otherwise, she does not report joint swelling, skin rash, photosensitivity, Raynaud's phenomenon. Physical Exam Vitals & Measurements HR: 75 (Peripheral) BP: 124/79 HT: 173 cm WT: 93.8 kg WT: 93.8 kg (Dosing) BMI: 31.34 Additional Vitals BP Position/Location: Sitting, Right arm General: Alert and oriented, well nourished, no acute distress. Eye: PERRL, EOMI, normal conjunctiva. HENT: Normocephalic, atraumatic, no conjunctival injection Lungs: Normal respiratory rate, no use of accessory muscles, no audible wheezing Musculoskeletal: no synovitis, joint effusions Skin: Skin is warm, dry and pink, no rashes or lesions. Neurologic: Awake, alert, and oriented X3 Psychiatric: Cooperative, appropriate mood and affect. Assessment/Plan 1. BOB positive Pt previously referred for positive BBO in the setting of intermittent paresthesias, which I thought was likely due to positional impingement syndrome She does have mild photosensitivity, but no other clinical manifestations to support diagnosis of lupus or systemic rheumatologic disease However, she was found to have elevated double stranded DNA at 157 Urine protein was negative We discussed the implications of these lab findings, but I cannot make a diagnosis of lupus at this time given the lack of clinical data to support such a diagnosis I recommend that we monitor her labs closely, repeat double stranded DNA and complements Repeat labs today No indication for immunomodulatory therapies Follow-up if symptoms worsen Ordered: Antinuclear Antibody HEp-2 Substrate-Carmel Beta 2 Glycoprotein 1 Abs IgG and IgM, Serum-Carmel BUN Complement C3-Carmel Complement C4-Carmel Creatinine DNA Double-Stranded IgG Antibody-Carmel Lupus Anticoagulant Profile Phospholip Ab (Cardiolip) IgM/IgG Evaluation-Carmel 2. Pulmonary emboli Check antiphospholipid antibodies Ordered: Antinuclear Antibody HEp-2 Substrate-Carmel Beta 2 Glycoprotein 1 Abs IgG and IgM, Serum-Carmel BUN Complement C3-Carmel Complement C4-Carmel Creatinine DNA Double-Stranded IgG Antibody-Carmel Lupus Anticoagulant Profile Phospholip Ab (Cardiolip) IgM/IgG Evaluation-Carmel Medical Decision Making Chronic conditions NOT treated during this visit that affected my overall medical decision making: [] Treatment plans discussed but not opted for at this time: [] Prescribed medication that requires intensive monitoring for toxicity: [] I have reviewed the patient?s medication list for medication interactions/contraindicati ons and/or for upcoming procedures: [yes or no] Time Spent with the Patient I have personally spent [] minutes on this date, directly related to today's patient visit, including pre and post visit work, for this date of service. Time listed does not include time spent on separately billable services. Provider Comments Repeat serologies Follow-up as needed Problem List/Past Medical History Ongoing BOB positive Arthritis Carpal tunnel syndrome of right upper limb Diabetes mellitus GERD - Gastro-esophageal reflux disease HTN - Hypertension Hypertension - High blood pressure Hypothyroidism Iron deficiency anemia Migraines Sacroiliitis Vitamin D deficiency Historical No qualifying data Medications bisoprolol-hydrochlorothiaz robin 5 mg-6.25 mg oral tablet, 1 tabs, Oral, Daily celecoxib 200 mg oral capsule, 200 mg= 1 caps, Oral, Daily Jardiance, 10 mg, Oral, Daily Lipitor, 10 mg, Oral, Daily MetFORMIN (Eqv-Glucophage XR) 500 mg oral tablet, extended release, take 1 tablet by mouth every evening with EVENING MEAL pantoprazole 40 mg oral delayed release tablet, 40 mg= 1 tabs, Oral, Daily Provera, 10 mg, Oral, Daily Synthroid 125 mcg (0.125 mg) oral tablet, 125 mcg= 1 tabs, Oral, Daily Allergies No Known Medication Allergies Social History Alcohol Current, 1-2 times per month Tobacco Never (less than 100 in lifetime) Use:. Family History Arthritis: Grandmother (M). Diabetes mellitus: Father. Heart disease: Father, Grandfather (M) and Grandfather (P). Hypertension: Mother and Grandmother (M). Stroke: Grandmother (M). Health Status Family Member(s) Immunizations Vaccine Date Status SARS-CoV-2 (COVID-19) mRNA-1273 vaccine 10/09/2022 Given Comments : Original Free text Vaccine : SARS-CoV-2 (COVID-19) mRNA-1273 vaccine / Moderna SARS-CoV-2 (COVID-19) mRNA BNT-162b2 vax 10/09/2022 Given Comments : Original Free text Vaccine : SARS-CoV-2 (COVID-19) mRNA BNT-162b2 vaccine / Pfizer Electronically signed by Yonathan Dietrich MD 10/23/23 09:12 EDT Electronically signed by Abhi, Delilah E 10/23/2023 09:00 EDT Normal [facility] U Prot Randomon 10-16-2023 Ur Protein <6 Normal <=10 [facility] Comment on above: Performed By: #### U RRTP #### [facility] [address] [place] [address] HGB A1C (GLYCO-HGB)on 2023 Glucose [Mass/Vol] 223 mg/dL Normal [facility] Comment on above: Performed By: #### H A1C #### [facility] ([id number]) [address], [address] [place] [address] HbA1c (Bld) [Mass fraction] 9.4 % High 4.4-5.[address] [facility] Comment on above: Result Comment: NOTE ADA Guidelines Result HgbA1c Normal : less than 5.7 % Prediabetes : 5.7 % to 6.4 % Diabetes : > 6.4 % Use with caution in patients with abnormal hemoglobin variants as the half-life of red blood cells and in vivo glycation rates are affected. Performed By: #### H A1C #### [facility] ([id number]) [address] [place] [address], [address] [place] [address] Factor V Mutationon 07-27-19 24 F 5 SPECIMEN Whole Blood Normal [facility] Comment on above: Performed By: #### A F5MUT, AMTHFR, APTMUT #### [facility] [address] [place] [address] Instrumentation Manager: Rafa Andrea MD #### LEBRON BUSH CDP #### [facility] [address] [place] [address] Instrumentation Manager: Nghia Crawford MD FACTOR 5 MUTATION Negative Normal [facility] Comment on above: Result Comment: (NOT E) Indication for testing: Assess genetic risk for thrombosis. NEGATIVE: The factor V Leiden variant, [id number]; [id number], was not detected. This does not exclude a genetic cause for thrombophilia. If this individual has had a previous venous thromboembolism, this negative result is unlikely to significantly reduce the risk for recurrence; thus, future clinical management to reduce recurrence should not be altered. This result has been reviewed and approved by Rashida Robins M.D., Ph.D. BACKGROUND INFORMATION: Factor V Leiden (F5) R506Q Mutation CHARACTERISTICS: Venous thromboembolism (VTE) is multifactorial caused by a combination of genetic and environmental factors. The Factor V Leiden (FVL) variant is the most common cause of inherited VTEs, accounting for over 90 percent of activated protein C (APC) resistance. Because the FVL variant eliminates the APC cleavage site, factor V is inactivated slower, thus persisting longer in blood circulation, leading to more thrombin production. Other genetic risk factors for VTE include, male sex and variants in antithrombin, protein C, protein S, or factor XIII. Non-genetic risk factors include, age, smoking, prolonged immobilization, malignant neoplasms, surgery, , oral contraceptives, estrogen replacement therapy, tamoxifen and raloxifene therapy. INCIDENCE OF FACTOR V LEIDEN VARIANT: Approximately 5 percent of Caucasians, 2 percent of Hispanics, 1 percent of Americans and 0.5 percent of Asians are heterozygous; homozygosity occurs in 1 in 1500 Caucasians. INHERITANCE: Semi-dominant; both heterozygotes and homozygotes are at increased risk for VTE. PENETRANCE: Lifetime risk of VTE is 10 percent for heterozygotes and 80 percent of homozygotes. CAUSE: The pathogenic gain of function in the F5 gene variant c.1601G>A (p.[id number]). Legacy nomenclature: [id number] (1691G>A) CLINICAL SENSITIVITY: 20-50 percent of individuals with an isolated VTE have the FVL variant. METHODOLOGY: Polymerase chain reaction and fluorescence monitoring. ANALYTICAL SENSITIVITY AND SPECIFICITY: 99 percent. LIMITATIONS: Diagnostic errors can occur due to rare sequence variations. F5 gene mutations, other than p.Bqk423Eoa, will not be detected. This test was developed and its performance characteristics determined by [facility]. It has not been cleared or approved by the [place] Food and Drug Administration. This test was performed in a CLIA certified laboratory and is intended for clinical purposes. Counseling and informed consent are recommended for genetic testing. Consent forms are available online. Performed By: [facility] [address] [place] [address] Hyster Machine Operator: Rei Mixon MD, PhD CLIA Number: [id number] Performed By: #### A F5MUT, AMTHFR, APTMUT #### [address] [address] Instrumentation Manager: Rafa Andrea MD #### LEBRON BUSH CDP #### [address] [place] [address] Instrumentation Manager: Nghia Crawford MD MTHFR Gene Mutationon 2023 MTHFR 1286 A>C Mut Negative Normal [facility] Comment on above: Performed By: #### A F5MUT, AMTHFR, APTMUT #### [address] [address] Instrumentation Manager: Rafa Andrea MD #### LEBRON BUSH CDP #### [address] [place] [address] Instrumentation Manager: Nghia Crawford MD MTHFR 655C>T Mut Negative Normal [facility] Comment on above: Performed By: #### A F5MUT, AMTHFR, APTMUT #### [address] [address] Instrumentation Manager: Rafa Andrea MD #### LEBRON BUSH, CDP #### [facility] [address] [place] [address] Instrumentation Manager: Nghia Crawford MD MTHFR Interpretation See Note Normal [facility] Comment on above: Result Comment: (NOT E) Indication for testing: Determine genetic contribution to hyperhomocysteinemia. Negative: Neither of the common MTHFR gene variants tested, c.665C>T (previously designated C677T) and c.1286A>C (previously designated R5179Q), were detected. Other causes of elevated homocysteine levels were not evaluated. This result has been reviewed and approved by Rashida Robins M.D., Ph.D. Background Information: Methylenetetrahydrofolate Reductase (MTHFR) 2 Variants Characteristics: Variants in the MTHFR gene may reduce enzyme activity contributing to hyperhomocysteinemia. Although hyperhomocysteinemia was previously reported to be a risk factor for many conditions, especially venous thrombosis and cardiovascular disease, recent meta-analysis casts doubt on whether lifelong moderate homocysteine elevation has an effect on cardiovascular disease. The [employer] Practice Guidelines indicate that individuals with elevated homocysteine and two copies of the c.665C>T variant have an odds ratio of 1.27 for venous thromboembolism. Thus, they recommend MTHFR genotyping not be ordered as part of a routine evaluation for recurrent loss or thromobophilia due to questionable clinical significance. Incidence: The allele frequency of the c.665C>T variant is 0.35 in Caucasians, 0.5 in Hispanics, and 0.12 in Americans. Inheritance: Autosomal recessive; two copies of the c.665C>T variant may be a contributing factor to hyperhomocysteinemia. Variants Tested: c.665C>T(p.Qiv613Ezk) and c.1286A>C(p.Uop768Cci). (legacy names C677T and G2492F, respectively). Clinical Sensitivity: Undefined; hyperhomocysteinemia is caused by genetic, physiologic and environmental factors. MTHFR variants are only one contributing factor. Methodology: Polymerase chain reaction (PCR) and fluorescence monitoring. Analytical Sensitivity and Specificity: 99 percent. Limitations: Only two MTHFR gene variants (c.665C>T and c.1286A>C) are tested. Diagnostic errors can occur due to rare sequence variations. This test was developed and its performance characteristics determined by [facility]. It has not been cleared or approved by the [place] Food and Drug Administration. This test was performed in a CLIA certified laboratory and is intended for clinical purposes. Counseling and informed consent are recommended for genetic testing. Consent forms are available online. Performed By: [facility] [address] [place] [address] Hyster Machine Operator: Rei Mixon MD, PhD CLIA Number: [id number] Performed By: #### A F5MUT, AMTHFR, APTMUT #### [facility] [address] [place] [address] Instrumentation Manager: Rafa Andrea MD #### LEBRON BUSH CDP #### [facility] [address] [place], [place] [id number] Instrumentation Manager: Nghia Crawford MD MTHFR SPECIMEN Whole Blood Normal [facility] Comment on above: Performed By: #### A F5MUT, AMTHFR, APTMUT #### [facility] [address] [place] [address] Instrumentation Manager: Rafa Andrea MD #### LEBRON BUSH CDP #### [facility] [address] [place], [place] [id number] Instrumentation Manager: Nghia Crawford MD PT Mutation [id number] 07-26-19 24 PT [id number] VARIANT Negative Normal [facility] Comment on above: Result Comment: (NOT E) Indication for testing: Assess genetic risk for thrombosis. NEGATIVE: The Factor II, prothrombin N99550E mutation, was not detected. Other causes of elevated prothrombin levels and hereditary forms of venous thrombosis have not been excluded. Recommendations: If clinically indicated, testing for other inherited or acquired thrombophilic disorders is recommended including DNA testing for the factor V Leiden mutation, measurement of total plasma homocysteine concentration, serological assays for anticardiolipin antibodies, multiple phospholipid-dependent coagulation assays for lupus inhibitor, protein C activity, protein S activity or free protein S antigen, and antithrombin activity. This result has been reviewed and approved by Rashida Robins M.D., Ph.D. 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 The expression of Factor II thrombophilia is impacted by coexisting genetic thrombophilic disorders, acquired thrombophilic disorders (eg, malignancy, hyperhomocysteinemia, high factor VIII levels), and circumstances including: , oral contraceptive use, hormone replacement therapy, selective estrogen receptor modulators, travel, central venous catheters, surgery, and organ transplantation. INCIDENCE: Approximately 2 percent of Caucasians and 0.3 percent of Americans are heterozygous; homozygosity occurs in 1 in 10,000 individuals. INHERITANCE: Incomplete autosomal dominant. PENETRANCE: The risk of thrombosis is increased 2-4 fold for heterozygotes and further increased for homozygotes. CAUSE: Homozygosity or heterozygosity for F2 c.*97G>A (H13982F). PATHOGENIC VARIANT TESTED: F2 c.*97G>A (Y43482Q). CLINICAL SENSITIVITY FOR VENOUS THROMBOSIS: Approximately 10 percent. METHODOLOGY: Polymerase chain reaction and fluorescence monitoring. ANALYTICAL SENSITIVITY AND SPECIFICITY: 99 percent. LIMITATIONS: Diagnostic errors can occur due to rare sequence variations. F2 gene variants, other than c.*97G>A (N71503G), will not be detected. This test was developed and its performance characteristics determined by [facility]. It has not been cleared or approved by the [place] Food and Drug Administration. This test was performed in a CLIA certified laboratory and is intended for clinical purposes. Counseling and informed consent are recommended for genetic testing. Consent forms are available online. Performed By: [facility] [address] [place] [address] Hyster Machine Operator: Rei Mixon MD, PhD [place] Number: [id number] Performed By: #### A F5MUT, AMTHFR, APTMUT #### [facility] [address] [place] [address] Instrumentation Manager: Rafa Andrea MD #### LEBRON BUSH CDP #### [address] [place] [address] Instrumentation Manager: Nghia Crawford MD PT PCR SPECIMEN Whole Blood Normal [facility] Comment on above: Performed By: #### A F5MUT, AMTHFR, APTMUT #### [facility] [address] [place] [address] Instrumentation Manager: Rafa Andrea MD #### LEBRON BUSH CDP #### [address] [place] [address] Instrumentation Manager: Nghia Crawford MD BUN + Creatinineon 4 Creatinine [Mass/Vol] 0.6 mg/dL Normal 0.5-0.9 [facility] Comment on above: Performed By: #### A F5MUT, AMTHFR, APTMUT #### [facility] [address] [place], [place] [id number] Instrumentation Manager: Rafa Andrea MD #### LEBRON BUSH CDP #### [facility] [address] [place] [address] Instrumentation Manager: Nghia Crawford MD GFR/1.73 sq M.predicted among non-blacks MDRD (S/P/Bld) [Vol rate/Area] mL/min/{1.73_m2} Normal >60 [facility] Comment on above: Result Comment: These results are not intended for use in patients <18 years of age. eGFR results are calculated without a race factor using the 2020 CKD-EPI equation. Careful clinical correlation is recommended, particularly when comparing to results calculated using previous equations. The CKD-EPI equation is less accurate in patients with extremes of muscle mass, extra-renal metabolism of creatine, excessive creatine ingestion, or following therapy that affects renal tubular secretion. Performed By: #### A F5MUT, AMTHFR, APTMUT #### [facility] [address] [place], [place] [id number] Instrumentation Manager: Rafa Andrea MD #### LEBRON BUSH CDP #### [facility] [address] [place] [address] Instrumentation Manager: Nghia Crawford MD Urea nitrogen [Mass/Vol] 9 mg/dL Normal -20 [facility] Comment on above: Performed By: #### A F5MUT, AMTHFR, APTMUT #### [facility] [address] [place], [place] [id number] Instrumentation Manager: Rafa Andrea MD #### LEBRON BUSH CDP #### [facility] [address] [place] [address] Instrumentation Manager: Nghia Crawford MD CBC with Diffon 07-24-2023 Abs. Basophil 0.05 k/uL Normal 0.00-0.20 [facility] Comment on above: Performed By: #### A F5MUT, AMTHFR, APTMUT #### [facility] [address] [place] [address] Instrumentation Manager: Rafa Andrea MD #### LEBRON BUSH, CDP #### [facility] [address] [place] [address] Instrumentation Manager: Nghia Crawford MD Abs.Imm.Granulocyt e <0.03 Normal 0.00-0.30 [facility] Comment on above: Performed By: #### A F5MUT, AMTHFR, APTMUT #### [facility] [address] [place] [address] Instrumentation Manager: Rafa Andrea MD #### LEBRON BUSH, CDP #### [facility] [address] [place] [address] Instrumentation Manager: Nghia Crawford MD Abs.Neutrophil (Seg) 2.80 k/uL Normal 1.50-8.10 [facility] Comment on above: Performed By: #### A F5MUT, AMTHFR, APTMUT #### [facility] [address] [place] [address] Instrumentation Manager: Rafa Andrea MD #### LEBRON BUSH, CDP #### [facility] [address] [place] [address] Instrumentation Manager: Nghia Crawford MD Basophils/100 WBC (Bld) 1 % Normal 0-2 [facility] Comment on above: Performed By: #### A F5MUT, AMTHFR, APTMUT #### [facility] [address] [place] [address] Instrumentation Manager: Rafa Andrea MD #### LEBRON BUSH, CDP #### [facility] [address] [place] [address] Instrumentation Manager: Nghia Crawford MD Eosinophils (Bld) [#/Vol] 0.10 10*3/uL Normal 0.00-0.44 [facility] Comment on above: Performed By: #### A F5MUT, AMTHFR, APTMUT #### [facility] [address] [place] [address] Instrumentation Manager: Rafa Andrea MD #### LEBRON BUSH, CDP #### [facility] [address] [place] [address] Instrumentation Manager: Nghia Crawford MD Eosinophils/100 WBC (Bld) 2 % Normal 1-4 [facility] Comment on above: Performed By: #### A F5MUT, AMTHFR, APTMUT #### [facility] [address] [place] [address] Instrumentation Manager: Rafa Andrea MD #### LEBRON BUSH, CDP #### [facility] [address] [place] [address] Instrumentation Manager: Nghia Crawford MD Erythrocyte distribution width (RBC) [Ratio] 13.2 % Normal 11.8-14.4 [facility] Comment on above: Performed By: #### A F5MUT, AMTHFR, APTMUT #### [facility] [address] [place], [place] [id number] Instrumentation Manager: Rafa Andrea MD #### LEBRON BUSH, CDP #### [facility] [address] [place] [address] Instrumentation Manager: Nghia Crawford MD Hematocrit (Bld) [Volume fraction] 44.3 % Normal 36.3-47.1 [facility] Comment on above: Performed By: #### A F5MUT, AMTHFR, APTMUT #### [facility] [address] [place] [address] Instrumentation Manager: Rafa Andrea MD #### LBERON BUSH CDP #### [facility] [address] [place], [place] [address] Instrumentation Manager: Nghia Crawford MD Hemoglobin (Bld) [Mass/Vol] 15.0 g/dL Normal 11.9-15.1 [facility] Comment on above: Performed By: #### A F5MUT, AMTHFR, APTMUT #### [facility] [address] [place] [address] Instrumentation Manager: Rafa Andrea MD #### LEBRON BUSH CDP #### [facility] [address] [place] [address] [place] [address] Instrumentation Manager: Nghia Crawford MD Immature granulocytes/100 WBC (Bld) 0 % Normal 0 [facility] Comment on above: Performed By: #### A F5MUT, AMTHFR, APTMUT #### [facility] [address] [place] [address] Instrumentation Manager: Rafa Andrea MD #### LEBRON BUSH CDP #### [facility] [address] [place] [address] Instrumentation Manager: Nghia Crawford MD Lymphocytes (Bld) [#/Vol] 0.88 10*3/uL Low 1.10-3.70 [facility] Comment on above: Performed By: #### A F5MUT, AMTHFR, APTMUT #### [facility] [address] [place] [address] Instrumentation Manager: Rafa Andrea MD #### LEBRON BUSH, CDP #### [facility] [address] [place] [address] Instrumentation Manager: Nghia Crawford MD Lymphocytes/100 WBC (Bld) 21 % Low 24-43 [facility] Comment on above: Performed By: #### A F5MUT, AMTHFR, APTMUT #### [facility] [address] [place] [address] Instrumentation Manager: Rafa Andrea MD #### LEBRON BUSH, CDP #### [facility] [address] [place] [address] Instrumentation Manager: Nghia Crawford MD MCH (RBC) [Entitic mass] 30.0 pg Normal 25.2-33.5 [facility] Comment on above: Performed By: #### A F5MUT, AMTHFR, APTMUT #### [facility] [address] [place], [place] [id number] Instrumentation Manager: Rafa Andrea MD #### LEBRON BUSH, CDP #### [facility] [address] [place] [address] Instrumentation Manager: Nghia Crawford MD MCHC (RBC) [Mass/Vol] 33.9 g/dL Normal 28.4-34.8 [facility] Comment on above: Performed By: #### A F5MUT, AMTHFR, APTMUT #### [facility] [address] [place], [place] [id number] Instrumentation Manager: Rafa Andrea MD #### LEBRON BUSH, CDP #### [facility] [address] [place] [address] Instrumentation Manager: Nghia Crawford MD MCV (RBC) [Entitic vol] 88.6 fL Normal 82.6-102.9 [facility] Comment on above: Performed By: #### A F5MUT, AMTHFR, APTMUT #### [facility] [address] [place], [place] [address] Instrumentation Manager: Rafa Andrea MD #### LEBRON BUSH, CDP #### [facility] [address] [place] [address] Instrumentation Manager: Nghia Crawford MD Monocytes (Bld) [#/Vol] 0.37 10*3/uL Normal 0.10-1.20 [facility] Comment on above: Performed By: #### A F5MUT, AMTHFR, APTMUT #### [facility] [address] [place] [address] Instrumentation Manager: Rafa Andrea MD #### LEBRNO BUSH, CDP #### [facility] [address] [place] [address] Instrumentation Manager: Nghia Crawford MD Monocytes/100 WBC (Bld) 9 % Normal 3-12 [facility] Comment on above: Performed By: #### A F5MUT, AMTHFR, APTMUT #### [facility] [address] [place], [place] [id number] Instrumentation Manager: Rafa Andrea MD #### LEBRON BUSH, CDP #### [facility] [address] [place] [address] [place] [address] Instrumentation Manager: Nghia Crawford MD Neutrophil (Seg) 67 % High 36-65 [facility] Comment on above: Performed By: #### A F5MUT, AMTHFR, APTMUT #### [facility] [address] [place] [address] Instrumentation Manager: Rafa Andrea MD #### LEBRON BUSH, CDP #### [facility] [address] [place] [address] Instrumentation Manager: Nghia Crawford MD NRBC Automated 0.0 per 100 WBC Normal 0.0 [facility] Comment on above: Performed By: #### A F5MUT, AMTHFR, APTMUT #### [facility] [address] [place] [address] Instrumentation Manager: Rafa Andrea MD #### LEBRON BUSH, CDP #### [facility] [address] [place], [place] [address] Instrumentation Manager: Nghai Crawford MD Platelet mean volume (Bld) [Entitic vol] 11.4 fL Normal 8.1-13.5 [facility] Comment on above: Performed By: #### A F5MUT, AMTHFR, APTMUT #### [facility] [address] [place] [address] Instrumentation Manager: Rafa Andrea MD #### LEBRON BUSH, CDP #### [facility] [address] [place] [address] Instrumentation Manager: Nghia Crawford MD Platelets (Bld) [#/Vol] 183 10*3/uL Normal 138-453 [facility] Comment on above: Performed By: #### A F5MUT, AMTHFR, APTMUT #### [facility] [address] [place] [address] Instrumentation Manager: Rafa Andrea MD #### LEBRON BUSH, CDP #### [facility] [address] [place] [address] Instrumentation Manager: Nghia Crawford MD RBC (Bld) [#/Vol] 5.00 10*6/uL Normal 3.95-5.11 [facility] Comment on above: Performed By: #### A F5MUT, AMTHFR, APTMUT #### [facility] [address] [place] [address] Instrumentation Manager: Rafa Andrea MD #### LEBRON BUSH, CDP #### [facility] [address] [place] [address] Instrumentation Manager: Nghia Crawford MD WBC (Bld) [#/Vol] 4.2 10*3/uL Normal 3.5-11.3 [facility] Comment on above: Performed By: #### A F5MUT, AMTHFR, APTMUT #### [facility] [address] [place] [address] Instrumentation Manager: Rafa Andrea MD #### BUNLEBRON MARCANO CDP #### [facility] [address] [place] [address] Instrumentation Manager: Nghia Crawford MD CT CHEST PULMONARY EMBOLISM W CONTRASTon 07-24-2023 CT CHEST PULMONARY EMBOLISM W CONTRAST EXAMINATION: CTA OF THE CHEST 07/24/2023 11:19 am TECHNIQUE: CTA of the chest was performed after the administration of intravenous contrast. Multiplanar reformatted images are provided for review. MIP images are provided for review. Automated exposure control, iterative reconstruction, and/or weight based adjustment of the mA/kV was utilized to reduce the radiation dose to as low as reasonably achievable. COMPARISON: 02/15/2024 HISTORY: ORDERING SYSTEM PROVIDED HISTORY: Bilateral pulmonary embolism (HCC) TECHNOLOGIST PROVIDED HISTORY: STAT Creatinine as needed:->Yes History of PE, compare FINDINGS: Pulmonary Arteries: Pulmonary arteries are adequately opacified for evaluation. No evidence of intraluminal filling defect to suggest pulmonary embolism. Main pulmonary artery is normal in caliber. Mediastinum: No evidence of mediastinal lymphadenopathy. The heart and pericardium demonstrate no acute abnormality. There is no acute abnormality of the thoracic aorta. Lungs/pleura: The lungs are without acute process. No focal consolidation or pulmonary edema. No evidence of pleural effusion or pneumothorax. Upper Abdomen: Limited images of the upper abdomen are unremarkable. Soft Tissues/Bones: No acute bone or soft tissue abnormality. IMPRESSION: No evidence of pulmonary embolism or acute pulmonary abnormality. Interpreted by: Pete Carranza MD Signed by: Pete Carranza MD 07/24/23 Final result Normal [facility] D-Dimer Teston 07-24-2023 D-Dimer Test <0.27 Normal 0.00-0.59 [facility] Comment on above: Result Comment: When combined with a low clinical probability, a D dimer value of <0.50 ug/mL FEU is considered negative for DVT and PE (negative predictive value of 98%, sensitivity of 97%). If this test is not being used to help rule out DVT and PE, then the following reference range should be utilized: 0.00 - 0.59 ug/mL FEU. The D-Dimer assay is intended for use as an aid in the diagnosis of venous thromboembolism (DVT and PE) and the results should be interpreted in conjunction with the patient's medical history, clinical presentation, and other findings. Elevated levels of D-dimer activity can be seen in any state of coagulation activation and is not recommended in patients with therapeutic dose anticoagulant therapy for >24 hours, fibrinolytic therapy within the previous 7 days, trauma or surgery within the previous 4 weeks, disseminated malignancies, aortic aneurysm, sepsis, severe infections, pneumonia, severe skin infections, liver cirrhosis, advanced age, coronary disease, diabetes, and . A very low percentage of patients with DVT may yield D-dimer results below the cutoff of 0.5 ug/mL FEU. This is known to be more prevalent in patients with distal DVT. Performed By: #### A F5MUT, AMTHFR, APTMUT #### [facility] [address] [place] [address] Instrumentation Manager: Rafa Andrea MD #### LEBRON BUSH CDP #### [address] [place] [address] Instrumentation Manager: Nghia Crawford MD C3-[facility] 05-29-2023 C3-Rodriguez 134 mg/dL Normal 75 - 175 [facility] Comment on above: Result Comment: Test Performed by: [place] [address] Instrumentation Manager: Isac Thompson M.D. Ph.D.; CLIA# [id number] Performed By: #### C omplement C3-Rodriguez #### [facility] [address] [place] [address] [facility] 05-29-2023 C4-Rodriguez 12 mg/dL Low 14 - 40 [facility] Comment on above: Result Comment: Test Performed by: [place] [address] Instrumentation Manager: Isac Thompson M.D. Ph.D.; CLIA# [id number] Performed By: #### C omplement C3-Rodriguez #### [facility] [address] [place] [address] DS DNA IgG-[facility] 05-26-2023 DS-DNA IgG-Carmel 59.0 IU/mL High <30.0 (Negative) [facility] Comment on above: Result Comment: Inte rpretation: Borderline (30.0-75.0) Test Performed by: [facility] [address] [place] [address] Instrumentation Manager: Isac Thompson M.D. Ph.D.; CLIA# [id number] Performed By: #### C omplement C3-Carmel #### [facility] [address] [place] [address] U Prot Randomon 05-24-2023 Ur Protein 18 mg/dL High <=10 [facility] Comment on above: Performed By: #### C omplement C3-Carmel #### [facility] [address] [place] [address] BUN + Creatinineon Creatinine [Mass/Vol] 0.8 mg/dL Normal 0.5-0.9 [facility] Comment on above: Performed By: #### B UNCRT #### [facility] [address] [place] [address] Instrumentation Manager: Nghia Crawford MD GFR/1.73 sq M.predicted among non-blacks MDRD (S/P/Bld) [Vol rate/Area] mL/min/{1.73_m2} Normal >60 [facility] Comment on above: Result Comment: These results are not intended for use in patients <18 years of age. eGFR results are calculated without a race factor using the 2020 CKD-EPI equation. Careful clinical correlation is recommended, particularly when comparing to results calculated using previous equations. The CKD-EPI equation is less accurate in patients with extremes of muscle mass, extra-renal metabolism of creatine, excessive creatine ingestion, or following therapy that affects renal tubular secretion. Performed By: #### B UNCRT #### [facility] [address] [place] [address] Instrumentation Manager: Nghia Crawford MD Urea nitrogen [Mass/Vol] 10 mg/dL Normal 6-20 [facility] Comment on above: Performed By: #### B UNCRT #### [facility] [address] [place] [address] Instrumentation Manager: Nghia Crawford MD Basic Metabolic Panelon 02-02 Anion gap [Moles/Vol] 11 mmol/L 9 - 17 mmol/L [facility] Calcium [Mass/Vol] 9.0 mg/dL 8.6 - 10. 4 mg/dL [facility] Chloride [Moles/Vol] 104 mmol/L 98 - 107 mmol/L [facility] CO2 [Moles/Vol] 22 mmol/L 20 - 31 mmol/L [facility] Creatinine [Mass/Vol] 0.8 mg/dL 0.5 - 0.9 mg/dL [facility] GFR/1.73 sq M.predicted MDRD (S/P/Bld) [Vol rate/Area] - PINF [facility] Comment on above: These results are not intended for use in patients <18 years of age. eGFR results are calculated without a race factor using the 2020 CKD-EPI equation. Careful clinical correlation is recommended, particularly when comparing to results calculated using previous equations. The CKD-EPI equation is less accurate in patients with extremes of muscle mass, extra-renal metabolism of creatine, excessive creatine ingestion, or following therapy that affects renal tubular secretion. Glucose [Mass/Vol] 106 mg/dL High 70 - 99 mg/dL [facility] Interpretation and review of laboratory results Abnormal [facility] Potassium [Moles/Vol] 4.6 mmol/L 3.7 - 5.3 mmol/L [facility] Sodium [Moles/Vol] 137 mmol/L 135 - 144 mmol/L [facility] Urea nitrogen [Mass/Vol] 10 mg/dL 6 - 20 mg/dL [facility] Urea nitrogen/Creatinin e [Mass ratio] 13 mg/mg 9 - 20 [facility] Basic Metabolic Profon 02-14 Anion gap [Moles/Vol] 11 mmol/L Normal - [facility] Comment on above: Performed By: #### P T, BMP, TROPI, CDP #### [facility] [address] [place], [place] [id number] Instrumentation Manager: Nghia Crawford MD BUN/CRE Ratio 13 Normal 9-20 [facility] Comment on above: Performed By: #### P T, BMP, TROPI, CDP #### [facility] [address] [place], [place] [id number] Instrumentation Manager: Nghia Crawford MD Calcium [Mass/Vol] 9.0 mg/dL Normal 8.6-10.4 [facility] Comment on above: Performed By: #### P T, BMP, TROPI, CDP #### [facility] [address] [place] [address] Instrumentation Manager: Nghia Crawford MD Chloride [Moles/Vol] 104 mmol/L Normal 98-107 [facility] Comment on above: Performed By: #### P T, BMP, TROPI, CDP #### [facility] [address] [place], [place] [id number] Instrumentation Manager: Nghia Crawford MD CO2 [Moles/Vol] 22 mmol/L Normal 20-31 [facility] Comment on above: Performed By: #### P T, BMP, TROPI, CDP #### [facility] [address] [place] [address] Instrumentation Manager: Nghia Crawford MD Creatinine [Mass/Vol] 0.8 mg/dL Normal 0.5-0.9 [facility] Comment on above: Performed By: #### P T, BMP, TROPI, CDP #### [facility] [address] [place] [address] Instrumentation Manager: Nghia Crawford MD GFR/1.73 sq M.predicted among non-blacks MDRD (S/P/Bld) [Vol rate/Area] mL/min/{1.73_m2} Normal >60 [facility] Comment on above: Result Comment: These results are not intended for use in patients <18 years of age. eGFR results are calculated without a race factor using the 2020 CKD-EPI equation. Careful clinical correlation is recommended, particularly when comparing to results calculated using previous equations. The CKD-EPI equation is less accurate in patients with extremes of muscle mass, extra-renal metabolism of creatine, excessive creatine ingestion, or following therapy that affects renal tubular secretion. Performed By: #### P T, BMP, TROPI, CDP #### [facility] [address] [place] [address] Instrumentation Manager: Nghia Crawford MD Glucose [Mass/Vol] 106 mg/dL High 70-99 [facility] Comment on above: Performed By: #### P T, BMP, TROPI, CDP #### [facility] [address] [place] [address] Instrumentation Manager: Nghia Crawford MD Potassium [Moles/Vol] 4.6 mmol/L Normal 3.7-5.3 [facility] Comment on above: Performed By: #### P T, BMP, TROPI, CDP #### [facility] [address] [place] [address] [address] [place], [place] [id number] Instrumentation Manager: Nghia Crawford MD Sodium [Moles/Vol] 137 mmol/L Normal 135-144 [facility] Comment on above: Performed By: #### P T, BMP, TROPI, CDP #### [facility] [address] [place] [address] [address] [place], [place] [id number] Instrumentation Manager: Nghia Crawford MD Urea nitrogen [Mass/Vol] 10 mg/dL Normal 6-20 [facility] Comment on above: Performed By: #### P T, BMP, TROPI, CDP #### [facility] [address] [place] [address] Instrumentation Manager: Nghia Crawford MD CBC with Auto Differentialon 02-14-2023 Basophils (Bld) [#/Vol] 0.06 10*3/uL [facility] Basophils/100 WBC (Bld) 1 % 0 - 2 % [facility] Eosinophils (Bld) [#/Vol] 0.13 10*3/uL [facility] Eosinophils/100 WBC (Bld) 2 % 1 - 4 % [facility] Erythrocyte distribution width (RBC) [Ratio] 18.7 % High 11.8 - 14.4 % [facility] Hematocrit (Bld) [Volume fraction] 33.0 % Low 36.3 - 47.1 % [facility] Hemoglobin (Bld) [Mass/Vol] 9.2 g/dL Low 11.9 - 15.1 g/dL [facility] Immature granulocytes (Bld) [#/Vol] 0.00 10*3/uL [facility] Immature granulocytes/100 WBC (Bld) 0 % 0 [facility] Interpretation and review of laboratory results Abnormal [facility] Lymphocytes/100 WBC (Bld) 21 % Low 24 - 43 % [facility] Lymphocytes/100 WBC (Bld) 1.32 % [facility] MCH (RBC) [Entitic mass] 19.5 pg Low 25.2 - 33.5 pg [facility] MCHC (RBC) [Mass/Vol] 27.9 g/dL Low 28.4 - 34.8 g/dL [facility] MCV (RBC) [Entitic vol] 69.9 fL Low 82.6 - 102.9 fL [facility] Monocytes/100 WBC (Bld) 10 % 3 - 12 % [facility] Monocytes/100 WBC (Bld) 0.63 % [facility] Morphology Lucho (Bld) [Interp] MICROCYTOSIS PRESENT [facility] Neutrophils/100 WBC (Bld) 66 % High 36 - 65 % [facility] Nucleated RBC/100 WBC (Bld) [Ratio] 0.3 % High 0.0 per 100 WBC [facility] Platelet mean volume (Bld) [Entitic vol] 10.8 fL 8.1 - 13.5 fL [facility] Platelets (Bld) [#/Vol] 219 10*3/uL [facility] RBC (Bld) [#/Vol] 4.72 10*6/uL 3.95 - 5.1 1 m/uL [facility] Segmented neutrophils/100 WBC (Bld) 4.16 % [facility] WBC other (Bld) [#/Vol] 6.3 [facility] CBC with Diffon 02-14-2023 Abs. Basophil 0.06 k/uL Normal 0.0-0.2 [facility] Comment on above: Performed By: #### A F5MUT, AMTHFR, APTMUT #### [facility] [address] [place] [address] Instrumentation Manager: Rafa Andrea MD #### LEBRON BUSH, CDP #### [facility] [address] [place] [address] Instrumentation Manager: Nghia Crawford MD Abs.Imm.Granulocyt e 0.00 k/uL Normal 0.00-0.30 [facility] Comment on above: Performed By: #### A F5MUT, AMTHFR, APTMUT #### [facility] [address] [place] [address] Instrumentation Manager: Rafa Andrea MD #### LEBRON BUSH, CDP #### [facility] [address] [place] [address] Instrumentation Manager: Nghia Crawford MD Abs.Neutrophil (Seg) 4.16 k/uL Normal 1.50-8.10 [facility] Comment on above: Performed By: #### A F5MUT, AMTHFR, APTMUT #### [facility] [address] [place] [address] Instrumentation Manager: Rafa Andrea MD #### LEBRON BUSH, CDP #### [facility] [address] [place] [address] Instrumentation Manager: Nghia Crawford MD Basophils/100 WBC (Bld) 1 % Normal 0-2 [facility] Comment on above: Performed By: #### A F5MUT, AMTHFR, APTMUT #### [facility] [address] [place] [address] Instrumentation Manager: Rafa Andrea MD #### LEBRON BUSH CDP #### [facility] [address] [place], [place] [phone] Instrumentation Manager: Nghia Crawford MD Eosinophils (Bld) [#/Vol] 0.13 10*3/uL Normal 0.00-0.44 [facility] Comment on above: Performed By: #### A F5MUT, AMTHFR, APTMUT #### [facility] [address] [place] [address] Instrumentation Manager: Rafa Andrea MD #### LEBRON BUSH CDP #### [facility] [address] [place] [address] [place] [address] Instrumentation Manager: Nghia Crawford MD Eosinophils/100 WBC (Bld) 2 % Normal 1-4 [facility] Comment on above: Performed By: #### A F5MUT, AMTHFR, APTMUT #### [facility] [address] [place] [address] Instrumentation Manager: Rafa Andrea MD #### LEBRON BUSH, CDP #### [facility] [address] [place] [address] [address] [place], [place] [id number] Instrumentation Manager: Nghia Crawford MD Immature granulocytes/100 WBC (Bld) 0 % Normal 0 [facility] Comment on above: Performed By: #### A F5MUT, AMTHFR, APTMUT #### [facility] [address] [place] [address] Instrumentation Manager: Rafa Andrea MD #### LEBRON BUSH, CDP #### [facility] [address] [place] [address] Instrumentation Manager: Nghia Crawford MD Lymphocytes (Bld) [#/Vol] 1.32 10*3/uL Normal 1.10-3.70 [facility] Comment on above: Performed By: #### A F5MUT, AMTHFR, APTMUT #### [facility] [address] [place] [address] Instrumentation Manager: Rafa Andrea MD #### LEBRON BUSH, CDP #### [facility] [address] [place] [address] Instrumentation Manager: Nghia Crawford MD Lymphocytes/100 WBC (Bld) 21 % Low 24-43 [facility] Comment on above: Performed By: #### A F5MUT, AMTHFR, APTMUT #### [facility] [address] [place], [place] [id number] Instrumentation Manager: Rafa Andrea MD #### LEBRON BUSH, CDP #### [facility] [address] [place] [address] Instrumentation Manager: Nghia Crawford MD Monocytes (Bld) [#/Vol] 0.63 10*3/uL Normal 0.10-1.20 [facility] Comment on above: Performed By: #### A F5MUT, AMTHFR, APTMUT #### [facility] [address] [place], [place] [id number] Instrumentation Manager: Rafa Andrea MD #### LEBRON BUSH, CDP #### [facility] [address] [place], [facility] Instrumentation Manager: Nghia Crawford MD Monocytes/100 WBC (Bld) 10 % Normal 3-12 [facility] Comment on above: Performed By: #### A F5MUT, AMTHFR, APTMUT #### [facility] [address] [place], [place] [id number] Instrumentation Manager: Rafa Andrea MD #### LEBRON BUSH, CDP #### [facility] [address] [place] [address] Instrumentation Manager: Nghia Crawford MD Morphology Lucho (Bld) [Interp] MICROCYTOSIS Normal [facility] Comment on above: Result Comment: PRES ENT Performed By: #### A F5MUT, AMTHFR, APTMUT #### [facility] [address] [place] [address] Instrumentation Manager: Rafa Andrea MD #### LEBRON BUSH, CDP #### [facility] [address] [place] [address] [place] [address] Instrumentation Manager: Nghia Crawford MD Neutrophil (Seg) 66 % High 36-65 [facility] Comment on above: Performed By: #### A F5MUT, AMTHFR, APTMUT #### [facility] [address] [place] [address] Instrumentation Manager: Rafa Andrea MD #### LEBRON BUSH, CDP #### [facility] [address] [place] [address] [place] [address] Instrumentation Manager: Nghia Crawford MD Erythrocyte distribution width (RBC) [Ratio] 18.7 % High 11.8-14.4 [facility] Comment on above: Performed By: #### A F5MUT, AMTHFR, APTMUT #### [facility] [address] [place] [address] Instrumentation Manager: Rafa Andrea MD #### LEBRON BUSH, CDP #### [facility] [address] [place], [place] [id number] Instrumentation Manager: Nghia Crawford MD Hematocrit (Bld) [Volume fraction] 33.0 % Low 36.3-47.1 [facility] Comment on above: Performed By: #### A F5MUT, AMTHFR, APTMUT #### [facility] [address] [place] [address] Instrumentation Manager: Rafa Andrea MD #### LEBRON BUSH, CDP #### [facility] [address] [place] [address] [place] [address] Instrumentation Manager: Nghia Crawford MD Hemoglobin (Bld) [Mass/Vol] 9.2 g/dL Low 11.9-15.1 [facility] Comment on above: Performed By: #### A F5MUT, AMTHFR, APTMUT #### [facility] [address] [place] [address] Instrumentation Manager: Rafa Andrea MD #### LEBRON BUSH CDP #### [facility] [address] [place] [address] [place] [address] Instrumentation Manager: Nghia Crawford MD MCH (RBC) [Entitic mass] 19.5 pg Low 25.2-33.5 [facility] Comment on above: Performed By: #### A F5MUT, AMTHFR, APTMUT #### [facility] [address] [place], [place] [id number] Instrumentation Manager: Rafa Andrea MD #### LEBRON BUSH CDP #### [facility] [address] [place] [address] [place] [address] Instrumentation Manager: Nghia Crawford MD MCHC (RBC) [Mass/Vol] 27.9 g/dL Low 28.4-34.8 [facility] Comment on above: Performed By: #### A F5MUT, AMTHFR, APTMUT #### [facility] [address] [place] [address] Instrumentation Manager: Rafa Andrea MD #### LEBRON BUSH CDP #### [facility] [address] [place] [address] [place] [address] Instrumentation Manager: Nghia Crawford MD MCV (RBC) [Entitic vol] 69.9 fL Low 82.6-102.9 [facility] Comment on above: Performed By: #### A F5MUT, AMTHFR, APTMUT #### [facility] [address] [place] [address] Instrumentation Manager: Rafa Andrea MD #### LEBRON BUSH, CDP #### [facility] [address] [place] [address] Instrumentation Manager: Nghia Crawford MD NRBC Automated 0.3 per 100 WBC High 0.0 [facility] Comment on above: Performed By: #### A F5MUT, AMTHFR, APTMUT #### [facility] [address] [place] [address] Instrumentation Manager: Rafa Andrea MD #### LEBRON BUSH, CDP #### [facility] [address] [place] [address] Instrumentation Manager: Nghia Crawford MD Platelet mean volume (Bld) [Entitic vol] 10.8 fL Normal 8.1-13.5 [facility] Comment on above: Performed By: #### A F5MUT, AMTHFR, APTMUT #### [facility] [address] [place] [address] Instrumentation Manager: Rafa Andrea MD #### LEBRON BUSH, CDP #### [facility] [address] [place] [address] Instrumentation Manager: Nghia Crawford MD Platelets (Bld) [#/Vol] 219 10*3/uL Normal 138-453 [facility] Comment on above: Performed By: #### A F5MUT, AMTHFR, APTMUT #### [facility] [address] [place] [address] Instrumentation Manager: Rafa Andrea MD #### LEBRON BUSH, CDP #### [facility] [address] [place] [address] Instrumentation Manager: Nghia Crawford MD RBC (Bld) [#/Vol] 4.72 10*6/uL Normal 3.95-5.11 [facility] Comment on above: Performed By: #### A F5MUT, AMTHFR, APTMUT #### [facility] [address] [place] [address] Instrumentation Manager: Rafa Andrea MD #### LEBRON BUSH CDP #### [facility] [address] [place], [place] [id number] Instrumentation Manager: Nghia Crawford MD WBC (Bld) [#/Vol] 6.3 10*3/uL Normal 3.5-11.3 [facility] Comment on above: Performed By: #### A F5MUT, AMTHFR, APTMUT #### [facility] [address] [place] [address] Instrumentation Manager: Rafa Andrea MD #### LEBRON BUSH CDP #### [facility] [address] [place], [place] [id number] Instrumentation Manager: Nghia Crawford MD CT CHEST W CONTRASTon 2022 CT CHEST W CONTRAST EXAMINATION: CT OF THE CHEST WITH CONTRAST 02/14/2023 1:54 pm TECHNIQUE: CT of the chest was performed with the administration of intravenous contrast. Multiplanar reformatted images are provided for review. Automated exposure control, iterative reconstruction, and/or weight based adjustment of the mA/kV was utilized to reduce the radiation dose to as low as reasonably achievable. COMPARISON: None. HISTORY: ORDERING SYSTEM PROVIDED HISTORY: Positive D-dimer TECHNOLOGIST PROVIDED HISTORY: STAT Creatinine as needed:->Yes FINDINGS: Pulmonary Arteries: Pulmonary arteries are adequately opacified for evaluation. Multiple bilateral intraluminal filling defects in the lobar, segmental and subsegmental branches of the right upper, middle and lower lobes and left lower lobe suggest pulmonary embolism. Main pulmonary artery is normal in caliber. No significant right heart strain Mediastinum: There are a few small nonspecific lymph nodes seen in the middle mediastinum. No suspicious lymphadenopathy. Lungs/pleura:. No focal infiltrates. No pulmonary masses are noted. No pleural effusions are identified. Cardiomediastinal Structures: No evidence of thoracic aortic aneurysm or dissection . Cardiac chambers are normal Upper Abdomen: Borderline splenomegaly Soft Tissues/Bones: There are hypertrophic degenerative changes in the thoracic spine.No acute osseous abnormalities. IMPRESSION: Bilateral pulmonary emboli as described above Critical results were called by Dr. Isac Berry MD to DAKOTAH Chavez on 02/14/2023 at 18:10. Interpreted by: Isac Berry MD Signed by: Isac Berry MD 02/14/23 Final result Normal [facility] Bilateral pulmonary emboli as described above Critical results were called by Dr. Isac Berry MD to DAKOTAH Chavez on 02/14/2023 at 18:10. [facility] EXAMINATION: CT OF THE CHEST WITH CONTRAST 02/14/2023 1:54 pm TECHNIQUE: CT of the chest was performed with the administration of intravenous contrast. Multiplanar reformatted images are provided for review. Automated exposure control, iterative reconstruction, and/or weight based adjustment of the mA/kV was utilized to reduce the radiation dose to as low as reasonably achievable. COMPARISON: None. HISTORY: ORDERING SYSTEM PROVIDED HISTORY: Positive D-dimer TECHNOLOGIST PROVIDED HISTORY: STAT Creatinine as needed:->Yes FINDINGS: Pulmonary Arteries: Pulmonary arteries are adequately opacified for evaluation. Multiple bilateral intraluminal filling defects in the lobar, segmental and subsegmental branches of the right upper, middle and lower lobes and left lower lobe suggest pulmonary embolism. Main pulmonary artery is normal in caliber. No significant right heart strain Mediastinum: There are a few small nonspecific lymph nodes seen in the middle mediastinum. No suspicious lymphadenopathy. Lungs/pleura:. No focal infiltrates. No pulmonary masses are noted. No pleural effusions are identified. Cardiomediastinal Structures: No evidence of thoracic aortic aneurysm or dissection . Cardiac chambers are normal Upper Abdomen: Borderline splenomegaly Soft Tissues/Bones: There are hypertrophic degenerative changes in the thoracic spine.No acute osseous abnormalities. [facility] Isac Berry MD - 02/14/2023 EXAMINATION: CT OF THE CHEST WITH CONTRAST 02/14/2023 1:54 pm TECHNIQUE: CT of the chest was performed with the administration of intravenous contrast. Multiplanar reformatted images are provided for review. Automated exposure control, iterative reconstruction, and/or weight based adjustment of the mA/kV was utilized to reduce the radiation dose to as low as reasonably achievable. COMPARISON: None. HISTORY: ORDERING SYSTEM PROVIDED HISTORY: Positive D-dimer TECHNOLOGIST PROVIDED HISTORY: STAT Creatinine as needed:->Yes FINDINGS: Pulmonary Arteries: Pulmonary arteries are adequately opacified for evaluation. Multiple bilateral intraluminal filling defects in the lobar, segmental and subsegmental branches of the right upper, middle and lower lobes and left lower lobe suggest pulmonary embolism. Main pulmonary artery is normal in caliber. No significant right heart strain Mediastinum: There are a few small nonspecific lymph nodes seen in the middle mediastinum. No suspicious lymphadenopathy. Lungs/pleura:. No focal infiltrates. No pulmonary masses are noted. No pleural effusions are identified. Cardiomediastinal Structures: No evidence of thoracic aortic aneurysm or dissection . Cardiac chambers are normal Upper Abdomen: Borderline splenomegaly Soft Tissues/Bones: There are hypertrophic degenerative changes in the thoracic spine.No acute osseous abnormalities. IMPRESSION: Bilateral pulmonary emboli as described above Critical results were called by Dr. Isac Berry MD to DAKOTAH Chavez on 02/14/2023 at 18:10. [facility] Radiology Study observation (narrative) [facility] CT CHEST W CONTRASTOrdered B y: Isac Berry on 02-14-2023 [facility] Work Phone: PTon 02-14-2023 INR Coag (PPP) [Relative time] 1.0 {INR} Normal [facility] Comment on above: Result Comment: Therapeutic Range: Moderate Anticoagulant Intensity: INR = 2.0-3.0 High Anticoagulant Intensity: INR = 2.5-3.5 Performed By: #### P T, BMP, TROPI, CDP #### [facility] [address] [place] [address] [place] [address] Instrumentation Manager: Nghia Crawford MD PT Coag (PPP) [Time] 12.9 s Normal 11.9-14.8 [facility] Comment on above: Performed By: #### P T, BMP TROPI, CDP #### [facility] [address] [place] [address] [place] [address] Instrumentation Manager: Nghia Crawford MD Protime-INRon 02-14-2023 INR Coag (PPP) [Relative time] 1.0 {INR} [facility] Comment on above: Therapeutic Range: Moderate Anticoagulant Intensity: INR = 2.0-3.0 High Anticoagulant Intensity: INR = 2.5-3.5 PT Coag (PPP) [Time] 12.9 s [facility] Troponinon 02-14-2023 Troponin I.cardiac High sensitivity method [Mass/Vol] ng/L 0 - 14 ng/L [facility] Comment on above: High Sensitivity Tro ponin values cannot be compared with other Troponin methodologies. [facility] Troponin, High Sens <6 Normal 0-14 [facility] Comment on above: Result Comment: High Sensitivity Troponin values cannot be compared with other Troponin methodologies. Performed By: #### A F5MUT, AMTHFR, APTMUT #### [facility] [address] [place] [address] Instrumentation Manager: Rafa Andrea MD #### BUNCRT, JUAN DIANA #### [facility] [address] [place] [address] Instrumentation Manager: Nghia Crawford MD [facility] MEGHAN DIGITAL SCREEN CRISTY Membreno 11-11-2022 No evidence of malig clement. Advise annual screening mammography. BI-RADS 1 BIRADS: BIRADS - CATEGORY 1 Negative, no evidence of malignancy. Normal interval follow-up is recommended in 12 months. OVERALL ASSESSMENT - NEGATIVE A letter of notification will be sent to the patient regarding the results. [employer] recommends annual mammograms for women 40 years and older. [facility] EXAMINATION: SCREENING DIGITAL BILATERAL MAMMOGRAM WITH TOMOSYNTHESIS, 11/10/2022 TECHNIQUE: Screening mammography was performed with tomosynthesis including MLO and CC views of the bilateral breasts. Computer aided detection was used for the interpretation of this exam. COMPARISON: 31 August 2021; 21 June 2020 HISTORY: Screening. Negative family history of breast cancer. 3 month history of oral contraception. No hormonal replacement therapy or breast interventions. FINDINGS: Breasts are composed of scattered fibroglandular density. No skin thickening, nipple contour changes, suspicious calcifications, suspicious masses, areas of architectural distortion or significant interval changes are noted. [facility] Tali Pearson MD - 11/11/2022 EXAMINATION: SCREENING DIGITAL BILATERAL MAMMOGRAM WITH TOMOSYNTHESIS, 11/10/2022 TECHNIQUE: Screening mammography was performed with tomosynthesis including MLO and CC views of the bilateral breasts. Computer aided detection was used for the interpretation of this exam. COMPARISON: 31 August 2021; 21 June 2020 HISTORY: Screening. Negative family history of breast cancer. 3 month history of oral contraception. No hormonal replacement therapy or breast interventions. FINDINGS: Breasts are composed of scattered fibroglandular density. No skin thickening, nipple contour changes, suspicious calcifications, suspicious masses, areas of architectural distortion or significant interval changes are noted. IMPRESSION: No evidence of malignancy. Advise annual screening mammography. BI-RADS 1 BIRADS: BIRADS - CATEGORY 1 Negative, no evidence of malignancy. Normal interval follow-up is recommended in 12 months. OVERALL ASSESSMENT - NEGATIVE A letter of notification will be sent to the patient regarding the results. [employer] recommends annual mammograms for women 40 years and older. [employer] Phone: [employer]AN DIGITAL SCREEN BILA TERALOrdered By: Tali Briggs on 11-11-2022 [employer] Phone: [employer] MEGHAN DIGITAL SCREEN BILA TERALon 11-10-2022 Radiology Study observation (narrative) [employer] Phone: [employer] MEGHAN DIGITAL SCREEN BILA TERALon 09-01-2021 No evidence of malig clement. Advise annual screening mammography. BI-RADS 1 BIRADS: BIRADS - CATEGORY 1 Negative, no evidence of malignancy. Normal interval follow-up is recommended in 12 months. OVERALL ASSESSMENT - NEGATIVE A letter of notification will be sent to the patient regarding the results. [employer] recommends annual mammograms for women 40 years and older. [facility] RIS CONSOLIDATED EXAMINATION: SCREENING DIGITAL BILATERAL MAMMOGRAM WITH TOMOSYNTHESIS, 08/31/2021 TECHNIQUE: Screening mammography was performed with tomosynthesis including MLO and CC views of the bilateral breasts. Computer aided detection was used for the interpretation of this exam. COMPARISON: 21 June 2020; 11 June 2019 HISTORY: Screening. Negative family history of breast cancer. Negative history of hormonal replacement therapy. No prior breast interventions. FINDINGS: The breasts are composed of scattered fibroglandular densities. No skin thickening, nipple contour changes, malignant type microcalcifications, areas of architectural distortion, or significant interval changes are noted. [facility] RIS CONSOLIDATED [facility] MEGHAN DIGITAL SCREEN BILA TERALOrdered By: Tali Briggs on 09-01-2021 [employer] Phone: [facility] MEGHAN DIGITAL SCREEN BILA TERALon 08-31-2021 Radiology Study observation (narrative) [employer] Phone: Complete Blood Counton 07-26 Erythrocyte distribution width (RBC) [Ratio] 17.2 % High 11.0-15.0 [facility] Pyrometer Temperature Regulator Comment on above: Performed By: #### C MP, LIPD, VITD, CBC #### [facility] [address] [place], [place] [id number] Hematocrit (Bld) [Volume fraction] 37.7 % Normal 35.0-47.0 [facility] Temperature Regulator Comment on above: Performed By: #### C MP, LIPD, VITD, CBC #### [facility] [address] [place], [place] [id number] Hemoglobin (Bld) [Mass/Vol] 11.4 g/dL Low 11.6-15.5 [facility] Temperature Regulator Comment on above: Performed By: #### C MP, LIPD, VITD, CBC #### [facility] [address], [place] [id number] MCH (RBC) [Entitic mass] 24.7 pg Low 27.0-33.0 [facility] Temperature Regulator Comment on above: Performed By: #### C MP, LIPD, VITD, CBC #### [facility] [address], [place] [id number] MCHC (RBC) [Mass/Vol] 30.2 g/dL Low 32.0-36.0 [facility] Temperature Regulator Comment on above: Performed By: #### C MP, LIPD, VITD, CBC #### [facility] [address], [place] [id number] MCV (RBC) [Entitic vol] 82 fL Normal 80-100 [facility] Temperature Regulator Comment on above: Performed By: #### C MP, LIPD, VITD, CBC #### [facility] [address], [place] [id number] Platelet mean volume (Bld) [Entitic vol] 11.60 fL Normal 7.50-12.50 [facility] Temperature Regulator Comment on above: Performed By: #### C MP, LIPD, VITD, CBC #### [facility] [address], [place] [id number] Platelets (Bld) [#/Vol] 268 10*3/uL Normal 140-400 [facility] Temperature Regulator Comment on above: Performed By: #### C MP, LIPD, VITD, CBC #### [facility] [address], [place] [id number] RBC (Bld) [#/Vol] 4.61 10*6/uL Normal 3.90-5.20 [facility] Pyrometer Temperature Regulator Comment on above: Performed By: #### C MP, LIPD, VITD, CBC #### [facility] [address], [place] [id number] RDW-SD 50.5 fL High 37.0-50.0 [facility] Temperature Regulator Comment on above: Performed By: #### C MP, LIPD, VITD, CBC #### [facility] [address], [place] [id number] WBC (Bld) [#/Vol] 4.3 10*3/uL Normal 3.8-11.0 [facility] Pyrometer Temperature Regulator Comment on above: Performed By: #### C MP, LIPD, VITD, CBC #### [facility] [address], [place] [id number] Comprehensive Metabolic [facility] 07-26-2021 Albumin [Mass/Vol] 4.7 g/dL Normal 3.6-5.1 [facility] Py[employer] Temperature Regulator Comment on above: Performed By: #### C MP, LIPD, VITD, CBC #### [facility] [address], [place] [id number] Albumin/Globulin [Mass ratio] 2.0 {ratio} Normal 1.0-2.5 [facility] Temperature Regulator Comment on above: Performed By: #### C MP, LIPD, VITD, CBC #### [facility] [address], [place] [id number] ALP [Catalytic activity/Vol] 76 U/L Normal 35-119 [facility] Comment on above: Performed By: #### C MP, LIPD, VITD, CBC #### [facility] [address], [place] [id number] ALT [Catalytic activity/Vol] 40 U/L High 6-33 [facility] Comment on above: Result Comment: 05/04 Female reference range changed. Performed By: #### C MP, LIPD, VITD, CBC #### [facility] [address], [place] [id number] Anion gap [Moles/Vol] 20 mmol/L Normal 12-20 [facility] Specialist Comment on above: Result Comment: Effe ctive 06/09/2019 reference range changed. Performed By: #### C MP, LIPD, VITD, CBC #### [facility] [address], [place] [id number] AST [Catalytic activity/Vol] 30 U/L Normal 9-34 [facility] Specialist Comment on above: Performed By: #### C MP, LIPD, VITD, CBC #### [facility] [address] [place], [place] [id number] Bilirubin [Mass/Vol] 0.60 mg/dL Normal 0.30-1.20 [facility] Specialist Comment on above: Performed By: #### C MP, LIPD, VITD, CBC #### [facility] [address] [place], [place] [id number] BUN/CREA 16 Ratio Normal 6-22 [facility] Comment on above: Performed By: #### C MP, LIPD, VITD, CBC #### [facility] [address], [place] [id number] Calcium [Mass/Vol] 10.3 mg/dL High 8.6-10.2 [facility] Comment on above: Performed By: #### C MP, LIPD, VITD, CBC #### [facility] [address], [place] [id number] Chloride [Moles/Vol] 104 mmol/L Normal 98-107 [facility] Comment on above: Performed By: #### C MP, LIPD, VITD, CBC #### [facility] [address], [place] [id number] CO2 [Moles/Vol] 24 mmol/L Normal 20-31 [facility] Comment on above: Performed By: #### C MP, LIPD, VITD, CBC #### [facility] [address], [place] [id number] Creatinine [Mass/Vol] 0.8 mg/dL Normal 0.6-1.4 [facility] Comment on above: Performed By: #### C MP, LIPD, VITD, CBC #### [facility] [address], [place] [id number] eGFRAA 94 mL/min/1.73m2 Normal >60 [facility] Comment on above: Performed By: #### C MP, LIPD, VITD, CBC #### [facility] [address], [place] [id number] eGFRNAA 78 mL/min/1.73m2 Normal >60 [facility] Comment on above: Performed By: #### C MP, LIPD, VITD, CBC #### [facility] [address], [place] [id number] Globulin (S) [Mass/Vol] 2.3 g/dL Normal 1.9-3.7 [facility] Specialist Comment on above: Performed By: #### C MP, LIPD, VITD, CBC #### [facility] [address], [place] [id number] Glucose [Mass/Vol] 125 mg/dL High 65-99 [facility] Comment on above: Result Comment: For FASTING Glucose --- ADA reference ranges: Normal 65-99 mg/dl Prediabetes 100-125 Diabetes >/= 126 Performed By: #### C MP, LIPD, VITD, CBC #### [facility] [address] [place], [place] [id number] Potassium [Moles/Vol] 4.7 mmol/L Normal 3.5-5.5 [facility] Comment on above: Performed By: #### C MP, LIPD, VITD, CBC #### [facility] [address], [place] [id number] Protein [Mass/Vol] 7.0 g/dL Normal 6.1-8.1 [facility] Specialist Comment on above: Performed By: #### C MP, LIPD, VITD, CBC #### [facility] [address], [place] [id number] Sodium [Moles/Vol] 143 mmol/L Normal 135-146 [facility] Specialist Comment on above: Performed By: #### C MP, LIPD, VITD, CBC #### [facility] [address], [place] [id number] Urea nitrogen [Mass/Vol] 13 mg/dL Normal 7-25 [facility] Temperature Regulator Comment on above: Performed By: #### C MP, LIPD, VITD, CBC #### [facility] [address], [place] [id number] Hemoglobin A1Con 07-26-2021 EAG 139.85 Normal [facility] Specialist Comment on above: Performed By: #### A 1C #### [facility] [address] [place], [place] [id number] HbA1c (Bld) [Mass fraction] 6.5 % High 4.0-6.0 [facility] Temperature Regulator Comment on above: Performed By: #### A 1C #### [facility] [address] [place], [place] [id number] Lipid Panelon 07-26-2021 Cholesterol [Mass/Vol] 239 mg/dL High 125-200 [facility] Temperature Regulator Comment on above: Result Comment: Low risk < 200mg/dL Borderline risk 201-239 mg/dl High risk > or equal to 240 Performed By: #### C MP, LIPD, VITD, CBC #### [facility] [address] [place], [place] [id number] Cholesterol in HDL [Mass/Vol] 43 mg/dL Normal >40 [facility] Temperature Regulator Comment on above: Result Comment: High Cardiovascular Risk HDL <40 mg/dL Low Cardiovascular Risk HDL > or equal to 60 mg/dl Performed By: #### C MP, LIPD, VITD, CBC #### [facility] [address] [place], [place] [id number] Cholesterol in LDL [Mass/Vol] 173 mg/dL Normal [facility] Comment on above: Result Comment: LDL ATP III CLASSIFICATION LDL less than 100 mg/dl Optimal LDL 100-129 mg/dl Near or above optimal LDL 130-159 Borderline high LDL 160-189 High LDL greater than 189 mg/dl Very High Performed By: #### C MP, LIPD, VITD, CBC #### [facility] [address] [place], [place] [id number] Cholesterol in VLDL [Mass/Vol] 23 mg/dL Normal [facility] Comment on above: Performed By: #### C MP, LIPD, VITD, CBC #### [facility] [address] [place], [place] [id number] Cholesterol.total/ Cholesterol in HDL [Mass ratio] 6 {ratio} Normal [facility] Comment on above: Performed By: #### C MP, LIPD, VITD, CBC #### [facility] [address], [place] [id number] Triglyceride [Mass/Vol] 114 mg/dL Normal 30-150 [facility] Comment on above: Result Comment: TRIG ATPIII CLASSIFICATIONS TRIG less than 150 mg/dl Normal TRIG 150-199 mg/dl Borderline High TRIG 200-500 mg/dl High TRIG greather than 500 mg/dl Very High Performed By: #### C MP, LIPD, VITD, CBC #### [facility] [address], [place] [id number] Q - BOB SCREEN IFA W/RFL TIT ER IFAon 07-26-2021 BOB SCREEN, IFA Positive Abnormal NEGATIVE [facility] Comment on above: Order Comment: [facility] performed at: [employer] [facility], [address] [place] [address], [address] [place], [address], Hyster Machine Operator: Saul Fox MD [facility] Date/Time: [facility] Results Received Date/Time: [facility] Reported Date/Time: Result Comment: BOB IFA is a first line screen for detecting the presence of up to approximately 150 autoantibodies in various autoimmune diseases. A positive BOB IFA result is suggestive of autoimmune disease and reflexes to titer and pattern. Further laboratory testing may be considered if clinically indicated. For additional information, please refer to http://education.Zify/faq/HZU769 (This link is being provided for informational/ educational purposes only.) Performed By: #### % 87559, 3020X, %SBNOCULI, 249X #### [facility] [address] [place] [address] Q - BOB TITER/PATTERNon 07-06 BOB PATTERN Nuclear, Homogeneous Abnormal [facility] Comment on above: Order Comment: [facility] performed at: [employer], [place] [facility], [address] , [address] [place] [address], [phone], Hyster Machine Operator: Saul Fox MD [facility] Date/Time: [facility] Results Received Date/Time: [facility] Reported Date/Time: Result Comment: Homo geneous pattern is associated with systemic lupus erythematosus (SLE), drug-induced lupus and juvenile idiopathic arthritis. AC-1: Homogeneous International Consensus on BOB Patterns (https://doi.org/10.1515/fwjs-1155-0654) Performed By: #### % 27118, 3020X, %SBNOCULI, 249X #### [facility] [address] [place] [address] BOB TITER 1:80 High [facility] Comment on above: Order Comment: [facility] performed at: [employer], [place] [facility], [address] , [address] [place] [address], [phone], Hyster Machine Operator: Saul Fox MD [facility] Date/Time: [facility] Results Received Date/Time: [facility] Reported Date/Time: Result Comment: A lo w level BOB titer may be present in pre-clinical autoimmune diseases and normal individuals. Reference Range <1:40 Negative 1:40-1:80 Low Antibody Level >1:80 Elevated Antibody Level Performed By: #### % 72140, 3020X, %SBNOCULI, 249X #### [facility] [address] [place] [address] Q - UR CULT REFLEXon 022 REFLEXIVE URINE CULTURE SEE NOTE Normal [facility] Temperature Regulator Comment on above: Order Comment: [facility] performed at: [employer], [place] [facility], [address] , [address] [place] [address], [address] [place] [address], Hyster Machine Operator: Saul Fox MD [facility] Date/Time: [facility] Results Received Date/Time: [facility] Reported Date/Time: Result Comment: NO C ULTURE INDICATED Performed By: #### % 09242, 3020X, %SBNOCULI, 249X #### [facility] [address] [place] [address] Q - URINALYSIS,COMPLETE,WITH REFLEX TO CULTUREon 07-26-2021 Appearance (U) CLEAR Normal CLEAR [facility] Specialist Comment on above: Order Comment: [facility] performed at: [employer] [facility], [address] , [address] [place] [address], [address] [place] [address], Hyster Machine Operator: Saul Fox MD [facility] Date/Time: [facility] Results Received Date/Time: [facility] Reported Date/Time: Performed By: #### % 18915, 3020X, %SBNOCULI, 249X #### [facility] [address] [place] [address] BACTERIA NONE SEEN Normal NONE SEEN [facility] Temperature Regulator Comment on above: Order Comment: [facility] performed at: [employer] [facility], [address] , [address] [place] [address], [address] [place] [address], Hyster Machine Operator: Saul Fox MD [facility] Date/Time: [facility] Results Received Date/Time: [facility] Reported Date/Time: Performed By: #### % 89806, 3020X, %SBNOCULI, 249X #### [facility] [address] [place] [address] Bilirubin Ql (U) Negative Normal NEGATIVE [facility] Temperature Regulator Comment on above: Order Comment: [facility] performed at: [employer], [place] [facility], [address] , [address] [place] [address], [address] [place] [address], Hyster Machine Operator: Saul Fox MD [facility] Date/Time: [facility] Results Received Date/Time: [facility] Reported Date/Time: Performed By: #### % 37761, 3020X, %SBNOCULI, 249X #### [facility] [address] [place] [address] Color (U) YELLOW Normal YELLOW [facility] Temperature Regulator Comment on above: Order Comment: [facility] performed at: [employer], [place] [facility], [address] , [address] [place] [address], [address] [place] [address], Hyster Machine Operator: Saul Fox MD [facility] Date/Time: [facility] Results Received Date/Time: [facility] Reported Date/Time: Performed By: #### % 43981, 3020X, %SBNOCULI, 249X #### [facility] [address] [place] [address] Glucose Ql (U) Negative Normal NEGATIVE [facility] Py[employer]eter Temperature Regulator Comment on above: Order Comment: [facility] performed at: [employer], [place] [facility], [address] , [address] [place] [address], [address] [place] [address], Hyster Machine Operator: Saul Fox MD [facility] Date/Time: [facility] Results Received Date/Time: [facility] Reported Date/Time: Performed By: #### % 12619, 3020X, %SBNOCULI, 249X #### [facility] [address] [place] [address] HYALINE CAST NONE SEEN Normal NONE SEEN [facility] Pyrometer Temperature Regulator Comment on above: Order Comment: [facility] performed at: [employer], [place] [facility], [address] , [address] [place] [address], [address] [place] [address], Hyster Machine Operator: Saul Fox MD [facility] Date/Time: [facility] Results Received Date/Time: [facility] Reported Date/Time: Performed By: #### % 32320, 3020X, %SBNOCULI, 249X #### [facility] [address] [place] [address] Ketones Ql (U) Negative Normal NEGATIVE [facility] Py[employer]eter Temperature Regulator Comment on above: Order Comment: [facility] performed at: [employer], [place] [facility], [address] [facility], [address] [place] [address], [phone], Hyster Machine Operator: Saul Fox MD [facility] Date/Time: [facility] Results Received Date/Time: [facility] Reported Date/Time: Performed By: #### % 48319, 3020X, %SBNOCULI, 249X #### [facility] [address] [place] [address] Leukocyte esterase Test strip Ql (U) Negative Normal NEGATIVE [facility] Temperature Regulator Comment on above: Order Comment: [facility] performed at: [employer], [place] [facility], [address] [place] [address], [address] [place] [address], [phone], Hyster Machine Operator: Saul Fox MD [facility] Date/Time: [facility] Results Received Date/Time: [facility] Reported Date/Time: Performed By: #### % 02643, 3020X, %SBNOCULI, 249X #### [facility] [address] [place] [address] Nitrite Ql (U) Negative Normal NEGATIVE [facility] Temperature Regulator Comment on above: Order Comment: [facility] performed at: [employer] [facility], [address] , [address] [place] [address], [phone], Hyster Machine Operator: Saul Fox MD [facility] Date/Time: [facility] Results Received Date/Time: [facility] Reported Date/Time: Performed By: #### % 64666, 3020X, %SBNOCULI, 249X #### [facility] [address] [place] [address] OCCULT BLOOD Negative Normal NEGATIVE [facility] Pyrometer Temperature Regulator Comment on above: Order Comment: [facility] performed at: [employer], [place] [facility], [address] , [address] [place] [address], [address] [place] [address], Hyster Machine Operator: Saul Fox MD [facility] Date/Time: [facility] Results Received Date/Time: [facility] Reported Date/Time: Performed By: #### % 80250, 3020X, %SBNOCULI, 249X #### [facility] [address] [place] [address] pH (U) 7.5 [pH] Normal 5.0-8.0 [facility] Py[employer]eter Temperature Regulator Comment on above: Order Comment: [facility] performed at: [employer] [facility], [address] , [address] [place] [address], [address] [place] [address], Hyster Machine Operator: Saul Fox MD [facility] Date/Time: [facility] Results Received Date/Time: [facility] Reported Date/Time: Performed By: #### % 56223, 3020X, %SBNOCULI, 249X #### [facility] [address] [place] [address] Protein Ql (U) Negative Normal NEGATIVE [facility] Pyrometer Temperature Regulator Comment on above: Order Comment: [facility] performed at: [employer], [place] [facility], [address] , [address] [place] [address], [address] [place] [address], Hyster Machine Operator: Saul Fox MD [facility] Date/Time: [facility] Results Received Date/Time: [facility] Reported Date/Time: Performed By: #### % 38471, 3020X, %SBNOCULI, 249X #### [facility] [address] [place] [address] RBC NONE SEEN Normal < OR = 2 [facility] Py[employer] Temperature Regulator Comment on above: Order Comment: [facility] performed at: [employer], [place] [facility], [address] [place] [address], [address] [place] [address], [address] [place] [address], Hyster Machine Operator: Saul Fox MD [facility] Date/Time: [facility] Results Received Date/Time: [facility] Reported Date/Time: Performed By: #### % 69829, 3020X, %SBNOCULI, 249X #### [facility] [address] [place] [address] Specific gravity (U) [Rel density] 1.018 Normal 1.001-1.035 [facility] Specialist Comment on above: Order Comment: [facility] performed at: [employer], [place] [facility], [address] [place] [address], [address] [place] [address], [address] [place] [address], Hyster Machine Operator: Saul Fox MD [facility] Date/Time: [facility] Results Received Date/Time: [facility] Reported Date/Time: Performed By: #### % 19405, 3020X, %SBNOCULI, 249X #### [facility] [address] [place] [address] SQUAMOUS EPITHELIAL CELLS 0-5 Normal < OR = 5 [facility] Py[employer] Temperature Regulator Comment on above: Order Comment: [facility] performed at: [employer] [facility], [address] [place] [address], [address] [place] [address], [address] [place] [address], Hyster Machine Operator: Saul Fox MD [facility] Date/Time: [facility] Results Received Date/Time: [facility] Reported Date/Time: Performed By: #### % 95360, 3020X, %SBNOCULI, 249X #### [facility] [address] [place] [address] WBC NONE SEEN Normal < OR = 5 [facility] Pyrometer Temperature Regulator Comment on above: Order Comment: [facility] performed at: [facility], [address], [address] [facility], [place], [address], Hyster Machine Operator: Saul Fox MD [facility] Date/Time: [facility] Results Received Date/Time: [facility] Reported Date/Time: Performed By: #### % 60977, 3020X, %SBNOCULI, 249X #### [facility] [address] [place] [address] Vitamin D 25-OHon 07-26-2021 VIT D 25 OH 65 ng/ml Normal >29 [facility] Py[employer]eter Temperature Regulator Comment on above: Result Comment: Sil min D Status Deficiency <20 ng/mL Insufficiency 20-29 ng/mL Optimal 30-100 ng/mL Possible Toxicity >=150 ng/mL Performed By: #### C MP, LIPD, VITD, CBC #### [facility] [address] [place], [place] [id number] [facility] MEGHAN DIGITAL SCREEN SELF REFERRAL W OR WO CAD BILATERALon 06-21-2020 No evidence of malig clement. Advise annual screening mammography. BI-RADS 1 BIRADS: BIRADS - CATEGORY 1 Negative, no evidence of malignancy in either breast. OVERALL ASSESSMENT - NEGATIVE A letter of notification will be sent to the patient regarding the results. RECOMMENDATION: Routine bilateral annual screening mammography is recommended. Follow-up screening mammogram in 1 year is advised. [facility] ([facility]: SCREENI NG DIGITAL BILATERAL MAMMOGRAM WITH TOMOSYNTHESIS, 06/21/2020 TECHNIQUE: Screening mammography of the bilateral breasts was performed with tomosynthesis. 2D standard and 3D tomosynthesis combination imaging performed through both breasts in the MLO and CC projection. Computer aided detection was utilized in the interpretation of this exam. COMPARISON: 11 June 2019; 29 April 2018 HISTORY: Screening. Positive family history of breast cancer; great grandmother. 5 year history of oral contraceptive usage. Negative history of hormonal replacement therapy. No prior breast interventions. FINDINGS: The breasts are composed of scattered fibroglandular density. No skin thickening, nipple contour changes, malignant type microcalcifications, areas of architectural distortion, or significant interval changes are noted. [employer] [facility] Jef, M[facility] Incoming R adiant Results From [facility] - 06/21/2020 2:25 PM EST EXAMINATION: SCREENING DIGITAL BILATERAL MAMMOGRAM WITH TOMOSYNTHESIS, 06/21/2020 TECHNIQUE: Screening mammography of the bilateral breasts was performed with tomosynthesis. 2D standard and 3D tomosynthesis combination imaging performed through both breasts in the MLO and CC projection. Computer aided detection was utilized in the interpretation of this exam. COMPARISON: 11 June 2019; 29 April 2018 HISTORY: Screening. Positive family history of breast cancer; great grandmother. 5 year history of oral contraceptive usage. Negative history of hormonal replacement therapy. No prior breast interventions. FINDINGS: The breasts are composed of scattered fibroglandular density. No skin thickening, nipple contour changes, malignant type microcalcifications, areas of architectural distortion, or significant interval changes are noted. IMPRESSION: No evidence of malignancy. Advise annual screening mammography. BI-RADS 1 BIRADS: BIRADS - CATEGORY 1 Negative, no evidence of malignancy in either breast. OVERALL ASSESSMENT - NEGATIVE A letter of notification will be sent to the patient regarding the results. RECOMMENDATION: Routine bilateral annual screening mammography is recommended. Follow-up screening mammogram in 1 year is advised. [employer]- [place], [facility] DIGITAL SCREEN W OR WO C AD BILATERALOrdered By: Kristina Wilkerson on 06-12-2019 Stable benign mammog debbi. BIRADS: BIRADS - CATEGORY 1 Negative, no evidence of malignancy. Normal interval follow-up is recommended in 12 months. OVERALL ASSESSMENT - NEGATIVE A letter of notification will be sent to the patient regarding the results. [employer] recommends annual mammograms for women 40 years and older. [employer] Phone: EXAMINATION: BILATER AL DIGITAL SCREENING MAMMOGRAM 06/11/2019 TECHNIQUE: Screening mammography was performed with tomosynthesis including MLO and CC views of the bilateral breasts. Computer aided detection was used for the interpretation of this exam. COMPARISON: 04/29/2018, 09/01/2016 HISTORY: Screening. Family history of breast cancer. FINDINGS: The breasts are almost entirely fatty. No new dominant masses, suspicious calcifications, nor areas of architectural distortion are seen. Tomosynthesis images demonstrate no suspicious abnormality. [employer] Phone: Jef, [facility] Incoming R adiant Results From [employer] - 06/12/2019 9:37 AM EST EXAMINATION: BILATERAL DIGITAL SCREENING MAMMOGRAM 06/11/2019 TECHNIQUE: Screening mammography was performed with tomosynthesis including MLO and CC views of the bilateral breasts. Computer aided detection was used for the interpretation of this exam. COMPARISON: 04/29/2018, 09/01/2016 HISTORY: Screening. Family history of breast cancer. FINDINGS: The breasts are almost entirely fatty. No new dominant masses, suspicious calcifications, nor areas of architectural distortion are seen. Tomosynthesis images demonstrate no suspicious abnormality. IMPRESSION: Stable benign mammogram. BIRADS: BIRADS - CATEGORY 1 Negative, no evidence of malignancy. Normal interval follow-up is recommended in 12 months. OVERALL ASSESSMENT - NEGATIVE A letter of notification will be sent to the patient regarding the results. The [employer] recommends annual mammograms for women 40 years and older. [employer] Phone: US HEAD NECK SOFT TISSUE THY ROIDon 04-17-2019 Cholesterol in LDL [Mass/Vol] Thyroid gland is mildly heterogeneous and demonstrates small nodules, described above, for which no dedicated imaging follow-up is indicated following the imaging criteria alone, included below. RECOMMENDATIONS: ACR TI-RADS recommendations: TR4 (4-6 points): FNA if >= 1.5 cm; follow-up if 1.0-1.4 cm in 1, 2, 3, and 5 years [employer] [place] EXAMINATION: THYROID ULTRASOUND 04/17/2019 COMPARISON: 03/11/2018 HISTORY: ORDERING SYSTEM PROVIDED HISTORY: Nontoxic uninodular goiter FINDINGS: Right thyroid lobe: 4.4 x 1.9 x 1.6 cm Left thyroid lobe: 4.2 x 1.8 x 1.5 cm Isthmus: 3 mm Thyroid Gland: The thyroid gland is mildly heterogeneous. Nodules: Right thyroid lobe demonstrates a 4 mm sized calcification. The left thyroid lobe demonstrates a hyperechoic 4.5 mm sized TR4 type nodule, wider than tall. Cervical lymphadenopathy: No abnormal lymph nodes in the imaged portions of the neck. [employer] Jef, monisha Incoming R adiant Results From [employer] - 04/17/2019 10:32 PM EST EXAMINATION: THYROID ULTRASOUND 04/17/2019 COMPARISON: 03/11/2018 HISTORY: ORDERING SYSTEM PROVIDED HISTORY: Nontoxic uninodular goiter FINDINGS: Right thyroid lobe: 4.4 x 1.9 x 1.6 cm Left thyroid lobe: 4.2 x 1.8 x 1.5 cm Isthmus: 3 mm Thyroid Gland: The thyroid gland is mildly heterogeneous. Nodules: Right thyroid lobe demonstrates a 4 mm sized calcification. The left thyroid lobe demonstrates a hyperechoic 4.5 mm sized TR4 type nodule, wider than tall. Cervical lymphadenopathy: No abnormal lymph nodes in the imaged portions of the neck. IMPRESSION: Thyroid gland is mildly heterogeneous and demonstrates small nodules, described above, for which no dedicated imaging follow-up is indicated following the imaging criteria alone, included below. RECOMMENDATIONS: ACR TI-RADS recommendations: TR4 (4-6 points): FNA if >= 1.5 cm; follow-up if 1.0-1.4 cm in 1, 2, 3, and 5 years [place], [place] Vital Signs Date Time Vital Sign Value Performing Clinician Facility 02-14-2023 17:57-0400 Diastolic blood pressure 80 mm[Hg] Kristina Wilkerson Work Phone: [facility] 02-14-2023 17:57-0400 Heart rate 83 /min Kristina Halinae Work Phone: [facility] 02-14-2023 17:57-0400 Respiratory rate 20 /min Kristina Halinae Work Phone: [facility] 02-14-2023 17:57-0400 SaO2% (BldA) [Mass fraction] 97 % Kristina Halinae Work Phone: [facility] 02-14-2023 17:57-0400 Systolic blood pressure 138 mm[Hg] Kristina Halinae Work Phone: [facility] 02-14-2023 17:33-0400 Body temperature 98.71 [degF] Kristina Halinae Work Phone: [facility] 02-14-2023 17:30-0400 Body mass index (BMI) [Ratio] 32.93 kg/m2 Kristina Halinae Work Phone: [facility] 02-14-2023 17:30-0400 Body weight 92.53 kg Kristina Rine Work Phone: [facility] 06-11-2017 13:33-0500 BMI (Body Mass Index) 34.12 kg/m2 [facility] Work Phone: 06-11-2017 13:33-0500 BP Diastolic 84 mm[Hg] [facility] Work Phone: 06-11-2017 13:33-0500 BP Systolic 122 mm[Hg] [facility] Work Phone: 06-11-2017 13:33-0500 Height 167.6 cm [facility] Work Phone: 06-11-2017 13:33-0500 Pulse (Heart Rate) 64 /min [facility] Work Phone: 06-11-2017 13:33-0500 Pulse Oximetry 94 % [facility] Work Phone: 06-11-2017 13:33-0500 Weight 95.89 kg [facility] Work Phone: Encounters Encounter Date Encounter Type Care Provider Facility Start: 12-04-2023 End: 12-06-[address] L RINE [facility] Start: 11-20-2023 End: 11-20-2023 ambulatory KRISTINA L RINE Not Available Start: 10-23-2023 End: 10-24-2023 ambulatory Yonathan Dietrich MD Facility:[facility] Start: 10-16-2023 End: 10-17-2023 ambulatory Yonathan Dietrich MD Facility:[facility] Start: 10-16-2023 End: 10-16-2023 ambulatory KRISTINA L RINE Not Available Start: 10-12-2023 End: 10-13-2023 ambulatory PACO Underwood JALEN [facility] Start: 09-25-2023 End: 09-25-2023 ambulatory PACO JALEN Not Available Start: 08-28-2023 End: 08-28-2023 ambulatory PACO JALEN Not Available Start: 08-21-2023 End: 08-21-2023 ambulatory KRISTINA WILKERSON Not Available Start: 08-03-2023 End: 08-03-2023 ambulatory CRISTINA ENNIS Not Available Start: 07-24-2023 End: 07-26-2023 [facility] Start: 05-24-2023 End: 05-25-2023 ambulatory Yonathan Dietrich MD Facility:[facility] Start: 05-15-2023 End: 05-15-2023 ambulatory KRISTINA WILKERSON Not Available Start: 02-14-2023 End: 02-14-2023 Emergency department patient visit [facility] ED Comment on above: Bilateral pulmonary embolism (HCC) (Primary Dx) Start: 02-14-2023 End: 02-16-2023 Subsequent hospital visit by physician [facility] Cat Scan Room [facility] CT Scan Comment on above: Positive D-dimer; Dyspnea, unspecified type Start: 02-14-2023 End: 02-16-2023 ambulatory [facility] Start: 11-10-2022 End: 11-12-2022 Subsequent hospital visit by physician [facility] Mammography Room At [facility] Mammography Comment on above: Screening mammogram for breast cancer Start: 08-31-2021 End: 09-02-2021 Subsequent hospital visit by physician [facility] Mammography Room At [facility] Mammography Comment on above: Screening mammogram for breast cancer Start: 06-21-2020 End: 06-23-2020 Subsequent hospital visit by physician [facility] Mammography Room At [facility] Mammography Comment on above: Breast cancer screen ing by mammogram Start: 06-11-2019 End: 06-13-2019 Subsequent hospital visit by physician [facility] Mammography Comment on above: Screening breast exa mination Start: 04-17-2019 End: 04-19-2019 Subsequent hospital visit by physician [facility] Ultrasound Room [address] [facility] Ultrasound Comment on above: Nontoxic uninodular goiter Start: 06-11-2017 End: 06-11-2017 Ambulatory [facility] Start: 06-11-2017 Office/outpatient visit, new, level 3 [facility] Work Phone: [facility] Rheumatology Procedures Date Procedure Procedure Detail Performing Clinician Start: 02-14-2023 Basic metabolic pane l calcium total Jojo Y Terry PA-C Work Phone: Start: 02-14-2023 Ct thorax w/contrast material Cristina Ennis Work Phone: Start: 11-10-2022 Screening mammograph y bi 2-view breast inc cad Kristina L Rine Work Phone: Start: 08-31-2021 Screening mammograph y bi 2-view breast inc cad Kristina L Rine Work Phone: Start: 06-21-2020 Screening mammograph y bi 2-view breast inc cad Kristina L Rine Work Phone: Start: 06-11-2019 Screening digital br east tomosynthesis bi Kristina L Rine Work Phone: Start: 04-17-2019 Us soft tissue head & neck real time imge docm Kristina L Rine Work Phone: Plan of Treatment Date Care Activity Detail Author Start: 06-26-2027 DTaP/Tdap/Td vaccine (2 - Td or Tdap) DTaP/Tdap/Td vaccine (2 - Td or Tdap) [facility] Start: 06-26-2027 DTaP/Tdap/Td vaccine (2 - Td) DTaP/Tdap/Td vaccine (2 - Td) [facility] [place] Start: 02-28-2023 End: 02-28-2023 Patient encounter procedure 02/28/2023 3:15 PM EDT Office Visit [facility] Part of [address] [address] Dev Lujan MD [address] [place] [address] F/U bilateral PE positive d-dimer [facility] Part of [facility] Comment on above: F/U bilateral PE pos itive d-dimer Start: 01-02-2023 Influenza vaccination Flu vaccine (# 1) [facility] Start: 12-07-2022 End: 12-07-2022 Patient encounter procedure 12/07/2022 Office [place] [address] [place] [address] [facility] Part of [facility] Start: 06-02-2021 COVID-19 Vaccine (2 - Pfizer series) COVID-19 Vaccine (2 - Pfizer series) [facility] Start: 04-28-2021 COVID-19 Vaccine (2 - Pfizer 3-dose series) COVID-19 Vaccine (2 - Pfizer 3-dose series) [facility] Start: 2021 Screening for malign ant neoplasm of colon [facility] Start: 02-03-2020 Influenza vaccination Flu vaccine (# 1) [place], [place] Start: 06-11-2019 End: 06-11-2019 Appointment 06/11/2019 Appointment Radiology [facility] Mammography Start: 02-02-2019 Influenza vaccination Flu vaccine (# 1) [place], [place] Start: 2016 Lipid panel [facility] Start: 2016 Lipid screen Lipid screen [place], [place] Start: 2011 Diabetes screen Diabetes screen [facility] Start: 2006 Screening for malign ant neoplasm of cervix [facility] Start: 1997 Cervical cancer screen Cervical canc er screen [place], [place] Start: 1997 Screening for malign ant neoplasm of cervix [facility] Start: 1994 Hepatitis C screening Hepatitis C sc reen [facility] Start: 1991 HIV screen HIV screen [place], [place] Start: 1991 HIV screening HIV [address] 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 [employer] Work Phone: Start: 1976 Tetanus vaccination TETANUS EVERY 10 YR [employer] Work Phone: End: 06-11-2018 RENAN Screen (SSA/B,SM,CURB BUILDER,SCL70,JO1 ) RENAN Screen (SSA/B,SM,CURB BUILDER,SCL70,DEMARCO 1) Routine Positive BOB (antinuclear antibody) 1 Occurrences starting 06/11/2017 until 06/11/2018 [facility] Work Phone: End: 06-11-2018 Glucose Glucose Routine Numbness 1 Occurrences starting 06/11/2017 until 06/11/2018 [facility] Work Phone: Immunizations Immunization Date Immunization Notes Care Provider Saira putnam 04-05-2017 influenza, seasonal, intradermal, preservative free Melo Sood [employer] Work Phone: Payers Date Payer Category Payer Unknown 2014 Unknown BCBS BCBS - [place] P PO xxxxxxxxxxxx 2014-Present [address] [place] [address] xxxxxxxxxxxx [id number] 2014 Unknown [id number] 1976 Unknown [id number] [id number] 6 1976 Unknown [id number] 2.16.840.1.126755.3.579.2.196 1976 Unknown [id number] 2.16.840.1.707515.3.579.2.196 1976 Unknown [id number] 2.16.840.1.623953.3.579.2.196 1976 Unknown [id number] 2.16.840.1.041051.3.579.2.196 1976 Unknown [id number] 2.16.840.1.236033.3.579.2.125 9 1976 Unknown [id number] 2.16.840.1.611059.3.579.2.125 9 1976 Unknown [id number] 2.16.840.1.572725.3.579.2.125 9 1976 Unknown [id number] 2.16.840.1.955519.3.579.2.125 9 1976 Unknown [id number] 2.16.840.1.600621.3.579.2.125 9 1976 Unknown [id number] 2.16.840.1.462917.3.579.2.125 9 1976 Unknown [id number] 2.16.840.1.925854.3.579.2.125 9 1976 Unknown [id number] 2.16.840.1.516480.3.579.2.173 1976 Unknown [id number] 2.16.840.1.315810.3.579.2.173 1976 Unknown [id number] 2.16.840.1.802187.3.579.2.173 1976 Unknown [id number] 2.16.840.1.628392.3.579.2.173 1976 Unknown [id number] 2.16.840.1.160648.3.579.2.173 1976 Unknown [id number] 2.16.840.1.070333.3.579.2.173 1976 Unknown [id number] 2.16.840.1.921724.3.579.2.173 1976 Unknown [id number] 2.16.840.1.645119.3.579.2.173 Social History Date Type Detail Facility Start: 06-11-2017 Tobacco smoking status NHIS Never smoker [facility] Work Phone: Start: 1975 [facility]: Exposure to SARS-CoV-2 (event) Not sure [facility] [employer] [place], [place] Tobacco smoking status NVIS Tobacco smoking consumption unknown [facility] [employer] Phone: Start: 09-21-2012 Gender identity Not on file [facility] Start: 09-21-2012 History of Social function [facility] Discharge instructions 02-14-2023 Discharge InstructionsAttachments Note Date & Type Note Facility 02-14-2023 Hospital Discharg e instructions Jojo Terry PA-C - 02/14/2023 6:20 PM EDT You have blood clot seen on your scan today. You will be given on the blood thinner Eliquis. Your risk of bleeding is much higher on the Eliquis. Your blood counts are stable today but with heavy vaginal bleeding you could be at risk for anemia. 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 Seek emergency medicine care with any worsening or heavy bleeding or signs and symptoms of severe anemia. The following attachments cannot be sent through Care Everywhere.Pulmonary Embolism (Persian)documented in this encounter [facility] Evaluation note Note Date & Type Note Facility Evaluation note Diagnosis Screening breast examination Other screening breast examination documented in this encounter [facility] [employer] Phone: Evaluation note Note Date & Type Note Facility Evaluation note Diagnosis Screening mammogram for breast cancer documented in this encounter [facility] [employer] Phone: Evaluation note Note Date & Type Note Facility Evaluation note Diagnosis Screening mammogram for breast cancer documented in this encounter [facility] Phone: Evaluation note Note Date & Type Note Facility Evaluation note Diagnosis Bilateral pulmonary embolism (HCC)- Primary Other pulmonary embolism and infarction documented in this encounter [facility] Evaluation note Note Date & Type Note Facility Evaluation note Diagnosis Positive D-dimer Abnormal coagulation profile Dyspnea, unspecified type documented in this encounter [facility] Instructions * Patient Instructions - AmeenaBritany AbbeyRAMON - 06/11/2017 1:57 PM EST Complete labs Return as needed in this encounter Assessments Diagnosis Positive BOB (antinuclear an tibody) - Primary Other and unspecified nonspecific immunological findings Myalgia Unspecified myalgia and myositis Numbness Disturbance of skin sensation Diagnosis Nontoxic uninodular goiter Diagnosis Breast cancer screening by mammogram Summary Purpose Family History No Family History Records FoundNo Family History Records FoundNo Family History Records FoundNo Family History Records FoundNo Family History Records FoundNo Family History Records Found Advance Directives No Advanced Directives Records FoundDocuments on File Type Date Recorded Patient Adult Protective Caseworker Expl anation Advance Directives and Living Will Power of Natural Resources Manager Documents on File Type Date Recorded Patient Adult Protective Caseworker Expl anation ACP-Advance Directive ACP-Power of Natural Resources Manager Reason for Referral Status Reason Specialty Diagnoses / Procedures Referre d By Contact Referred To Contact Open Radiology Diagnoses Nontoxic uninodular goiter Procedures US HEAD NECK SOFT TISSUE THYROID Rine, Kristina L [address] [place] [address] Status Reason Specialty Diagnoses / Procedures Referre d By Contact Referred To Contact Closed Radiology Diagnoses Breast cancer screening by mammogram Procedures BOB MEGHAN DIGITAL SCREEN SELF REFERRAL W OR WO CAD BILATERAL Rine, Kristina L [address] [place] [address] Status Reason Specialty Diagnoses / Procedures Referred By Contact Referred To Contact Authorized Radiology Diagnoses Screening breast examination Procedures BOB DIGITAL SCREEN W OR WO CAD BILATERAL Rine, Kristina L [address] [place] [address] Specialty Diagnoses / Procedures Referred By Contac t Referred To Contact Radiology Diagnoses Screening mammogram for breast cancer Procedures BOB MEGHAN DIGITAL SCREEN BILATERAL Rine, Kristina L [address] [place], [place] [id number] Referral ID Status Reason Start Date Expiration Date Visits Re quested Visits Authorized [id number] Closed 07/27/2021 07/27/2022 1 1 Referral ID Status Reason Start Date Expiration Date Visits Re quested Visits Authorized [id number] Closed 09/26/2022 09/26/2023 1 1 Specialty Diagnoses / Procedures Referred By Slime zafar Referred To Contact Radiology Diagnoses Positive D-dimer Dyspnea, unspecified type Procedures CT CHEST W CONTRAST idaliaCristina [address] [place], [place] [id number] Referral ID Status Reason Start Date Expiration Date V isits Requested Visits Authorized [id number] Pending Review 02/14/2023 02/14/2024 1 1 Additional Source Comments INFORMATION SOURCE (unrecogn ized section and content) DATE CREATED AUTHOR 11/27/2017 [facility] DATE CREATED AUTHOR AUTHOR'S ORGANIZ ATION 07/28/2021 [facility] dical Specialist DATE CREATED AUTHOR AUTHOR'S ORGANIZ ATION 10/14/2023 [facility] DATE CREATED AUTHOR AUTHOR'S ORGANIZ ATION 10/27/2023 [facility] DATE CREATED AUTHOR AUTHOR'S ORGANIZ ATION 11/21/2023 [facility] dical Specialists EPIC DATE CREATED AUTHOR AUTHOR'S ORGANIZ ATION 12/07/2023 [facility] Reason for Visit (unrecogniz ed section and content) Status Reason Specialty Diagnoses / Procedures Referred By Contact Referred To Contact Pending Review Radiology Diagnoses Nontoxic single thyroid nodule Procedures [facility] US,HEAD/NECK TISSUES,B-SCAN/REAL TIME Kristina Wilkerson [address] [facility] [address] [place] [address] [facility] Ultrasound [address] [place], [place] [id number] Status Reason Specialty Diagnoses / Procedures Referre d By Contact Referred To Contact Open Radiology Diagnoses Encounter for screening mammogram for malignant neoplasm of breast Procedures HC MAMMOGRAM DIGITAL SCREEN BILAT Kristina Wilkerson [address] [facility] [address] [place], [place] [id number] [facility] [address] [place] [id number] Status Reason Specialty Diagnoses / Procedures Referred By Contact Referred To Contact Pending Review Radiology Diagnoses Encounter for screening mammogram for malignant neoplasm of breast Procedures HC MAMMO SCREENING INCL CAD IF PERF Kristina Wilkerson [address] [place] [id number] [facility] [address] [place] [address] Specialty Diagnoses / Procedures Referred By Slime zafar Referred To Contact Radiology Diagnoses Screening mammogram for breast cancer Procedures BOB MEGHAN DIGITAL SCREEN BILATERAL Kristina Wilkerson [address] [place] [id number] Referral ID Status Reason Start Date Expiration Date Visits Re quested Visits Authorized [id number] Closed 07/27/2021 07/27/2022 1 1 Referral ID Status Reason Start Date Expiration Date Visits Re quested Visits Authorized [id number] Closed 09/26/2022 09/26/2023 1 1 Reason Comments Shortness of Breath Right calf pain and increased sob since labor day. Sent from CT for bilateral PE. Stopped taking control on Sunday02/09/2023 Specialty Diagnoses / Procedures Referred By Slime zafar Referred To Contact Radiology Diagnoses Positive D-dimer Dyspnea, unspecified type Procedures CT CHEST W CONTRAST idaliaCristina [address] [facility] [address] [place] [id number] Referral ID Status Reason Start Date Expiration Date V isits Requested Visits Authorized [id number] Pending Review 02/14/2023 02/14/2024 1 1 Care Teams (unrecognized sec tion and content) Tank Cleaning Supervisor Relationship Specialty Start Date End Date Kristina Wilkerson [address] [facility] [address] [place], [place] [phone] PCP - General 11/23/14 Tank Cleaning Supervisor Relationship Specialty Start Date End Date Kristina Wilkerson [address] [facility] [address] [place] [id number] PCP - General 11/23/14 Tank Cleaning Supervisor Relationship Specialty Start Date End Date Kristina Wilkerson [address] [place] [id number] PCP - General 11/23/14 Tank Cleaning Supervisor Relationship Specialty Start Date End Date Kristina Wilkerson [address] [place] [phone] PCP - General 11/23/14 Ordered Prescriptions (unrec ognized section and content) Prescription Sig Dispensed Refills Start Date End Da te apixaban (ELIQUIS) 5 MG TABS tablet Take 2 tablets by mouth 2 times daily for 7 days 28 tablet 0 02/14/2023 02/21/2023 Scheduled Active and Recently Administ ered Medications (unrecognized section and content) Medication Order 02/12/2023 02/13/2023 02/14/2023 apixaban (ELIQUIS) tablet 10 mg (COMPLETED) 10 mg, Oral, ONCE, 1 dose, On Sun02/14/23 at 1830, Indication of Use: Treatment-DVT/PE, ANTICOAGULANT 1827 (Given - Provid er: Kate Maldonado RN) FOR RECORDS PERTAINING TO PATIENTS WHO ARE OR HAVE BEEN ENROLLED IN A CHEMICAL DEPENDENCY/SUBSTANCEABUSE PROGRAM, SOME INFORMATION MAY BE OMITTED. This clinical summary was aggregated from multiple sources. Caution should be exercised in using it in the provision of clinical care. This summary normalizes information from multiple sources, and as a consequence, information in this document may materially change the coding, format and clinical context of patient data. In addition, data may be omitted in some cases. CLINICAL DECISIONS SHOULD BE BASED ON THE PRIMARY CLINICAL RECORDS. [employer] [facility]. provides no warranty or guarantee of the accuracy or completeness of information in this document.
[2023-12-21 07:09] LABS: Basophils Percent Auto 0.7 % (0.2-2.0); Eosinophils Absolute Auto 0.3 10^3/uL (0.0-0.7); Eosinophils Percent Auto 5.5 % (0.9-7.0); Hematocrit 46.6 % (36.0-48.0); Immature Granulocytes Abs Auto 0.02 10^3/uL (0.00-0.03); Immature Granulocytes Pct Auto 0.3 % (0.0-0.5); Lymphocytes Absolute Auto 1.5 10^3/uL (1.2-3.8); Lymphocytes Percent Auto 25.1 % (20.5-60.0); Mean Corpuscular HGB Conc 32.2 g/dL (29.9-35.2); Mean Corpuscular Hemoglobin 27.9 pg (26.7-34.0); Mean Corpuscular Volume 86.8 fL (81.0-99.0); Mean Platelet Volume 11.6 fL (9.5-13.5); Monocytes Absolute Auto 0.5 10^3/uL (0.3-0.8); Monocytes Percent Auto 8.9 % (1.7-12.0); Neutrophils Absolute Auto 3.6 10^3/uL (1.4-6.5); Neutrophils Percent Auto 59.5 % (43.0-75.0); Platelet Count 194 10^3/uL (150-450); Red Blood Count 5.37 10^6/uL (4.20-5.40); Red Cell Distribution Width 13.2 % (11.0-15.0)
[2023-12-21] MEDS: LACTATED RINGER'S SOLUTION 1,000 ML 50 ML IV ×2 (07:20→12:06)
[2023-12-21 07:46] LABS: HCG Quantitative <1 mIU/mL
--- NOTE | 2023-12-21 10:17 | PM.ONB ---
Brief Operative Note Date of procedure: 12/21/23 Pre-op diagnosis general: menorrhagia, uterine fibroid(large), dysmenorrhea Post-op diagnosis: other (adenomyosis) Procedure: NAME OF PROCEDURE: robotic assisted Laparoscopic bilateral salpingectomy, with Jolanta endometrial ablation with hysteroscopy findings-large uterine fibroids, adenomyotic appearing uterus PROCEDURE: The patient was taken back to the OR where she was prepped and draped in the normal sterile fashion after being placed in the dorsal lithotomy position, after being placed under general anesthesia without difficulty. a weighted speculum was then placed into the vagina. Pap and endometrial bx were performed without difficultyThe anterior lip was grasped with a single tooth tenaculum. The patient was then sounded to approximatley 9cm. The patient was gently sounded using Hegar dilators and the hysteroscope was passed through the cervix into the uterus where both ostia were seen. No gross evidence of polyps, fibroids or malignancy. The cervical length was noted to be 4cm. The Jolanta ablation apparatus was set to approximately 5cm in length. This was placed in through the cervix and into the uterus. After the seal was tested, at that time the total ablation of 120 seconds was performed with the Jolanta without difficulty. All instruments were removed from the vagina. A wet sponge stick was placed into the patient's vagina. Attention was then turned to the patient's abdomen, where a scalpel was used to make a small infraumbilical incision. The S retractors were then used to dissect the underlying layers until the fascia could be seen. The fascia was then grasped with Griselda clamps and tented up. A knife was then used to make a small incision to the fascia. The muscle was identified, at that time two sutures of #0 Vicryl on a GI needlewas then used and placed through the fascia. The peritoneum was then identified and entered bluntly. The 10-4 Rosemary was then placed into the patient's abdomen. This was confirmed with direct visualization of the bowel, using the laparoscope. The patient's abdomen was then insufflated using approximately 4 liters of CO2 gas. Survey of the patient's abdomen demonstrated normal appearing ovaries, uterus and tubes. A second and third lateral robotic ports, which was 8mm in size, was then placed laterally after incision was made in the skin under direct visualization. the robotic arms were engaged. The patient's tube on the patient's right side was identified. The tube was then tented up using a grasper. The ligasure was used to transect and coagulate the mesosalpingx from the fimbriated end to the insertion at the uterus, the tube was amputated and removed in its entirety.? Excellent hemostasis was noted. ?This was performed on the contralateral sideas well. Please note several large uterine fibroid where noted along with adenomyotic appearing uterus. The lateral ports were then moved under direct visualization with excellent hemostasis. The abdomen was deinsufflated. All instruments were removed from the patient's abdomen. The fascia was closed using the #0 Vicryl on GI needle. The skin was closed using 4-0 Vicryl subcuticularly. All instruments were removed from the patient's vagina as well. The patient was taken out of the dorsal lithotomy position and placed in the supine position and taken to recovery in stable condition. Sponge, lap and needle counts were correct x2. ??? Urinary Catheter Management Urinary Catheter Management Urethral: Cath placed during this visit: no
[2023-12-21] MEDS: ENOXAPARIN SODIUM 40 MG/0.4 ML SYRINGE SUBQ (10:43)
--- NOTE | 2023-12-21 12:08 | PC.NURSE ---
added more fluids , patient states she doesn't feel like she has to urinate.
== END 2023-12-21 14:15 | disposition home or self-care (01) ==
PROVIDERS: PCP Nurse Practitioner; Visit Provider Obstetrics & Gynecology
PROC: (CPT 840; principal; 2023-12-21 08:20)
PROC: (CPT 840; 2023-12-21 08:20)
DX: Z30.2 Encounter for sterilization (principal); N92.0 Excessive and frequent menstruation with regular cycle; N93.9 Abnormal uterine and vaginal bleeding, unspecified; R10.2 Pelvic and perineal pain; D25.9 Leiomyoma of uterus, unspecified; N94.6 Dysmenorrhea, unspecified; N80.03 Adenomyosis of the uterus; K66.0 Peritoneal adhesions (postprocedural) (postinfection); E11.9 Type 2 diabetes mellitus without complications; Z79.84 Long term (current) use of oral hypoglycemic drugs; E78.5 Hyperlipidemia, unspecified; I10 Essential (primary) hypertension; K21.9 Gastro-esophageal reflux disease without esophagitis; E03.9 Hypothyroidism, unspecified
CPT/HCPCS: 58563; 58661; 36415; 84702; 85025; 88302; J0131; J1100; J1170; J1650; J1885; J2405; J2704; J3010

== ENCOUNTER 2024-05-13 10:58 | Outpatient (OUT) | payer BC, SELFPAY | END 2024-05-13 10:59 | disposition home or self-care (01) | LOC: PST 10:59 | PROVIDERS: PCP Nurse Practitioner; Visit Provider Surgery | DX: Z01.818 Encounter for other preprocedural examination (principal); Z12.11 Encounter for screening for malignant neoplasm of colon ==

== ENCOUNTER 2024-05-20 08:10 | Day surgery (SDC) | payer BC, SELFPAY ==
--- OUTSIDE RECORDS SUMMARY | 2024-05-20 08:20 | XMS_ITS | CCD ---
Author Organization [facility] Care Team Providers Care Hospital Pharmacy Technician Name Role Phone Rine, Kristina L Unavailable SOOD, MELO Unavailable Unavailable SOOD, MELO Unavailable Unavailable RINE, KRISTINA L Unavailable Unavailable RINE, KRISTINA L Unavailable Unavailable Rine, Kristina L Primary Care Provider Rine, Kristina L Primary Care Provider Rine, Kristina L Primary Care Provider Rine, Kristina L Primary Care Provider Rine, Kristina L Primary Care Provider CHATO SANCHES Referring Unavailable RINE, KRISTINA L Primary Care Unavailable Yonathan Dietrich MD Attending Unavailable Rine PICKER OPERATOR, Kristina Shabana Primary Care Unavailable Yonathan Dietrich MD Attending Unavailable Rine PICKER OPERATOR, Kristina Shabana Primary Care Unavailable Yonathan Dietrich MD Attending Unavailable Rine PICKER OPERATOR, Kristina Shabana Primary Care Unavailable Yonathan Dietrich MD Attending Unavailable Rine PICKER OPERATOR, Kristina Shabana Primary Care Unavailable RINE, KRISTINA L Primary [...] ADNAN R Attending Unavailable RINE, KRISTINA L Primary Care Unavailable RINE, KRISTINA L Primary Care Unavailable FRUTH, CRISTINA Referring Unavailable FRUTH, CRISTINA Referring Unavailable RINE, KRISTINA L Primary Care Unavailable DO Chato Sanches Attending Provider Chato Sanches Attending Unavailable Chato Sanches Admitting Unavailable Halinae MEME, Kristina Dan Unavailable Bonny Trejo CNM Unavailable Jai Rhodes DO Primary Care Provider [phone] CRISTINA ENNIS Attending Unavailable RINE, KRISTINA L Attending Unavailable CHATO SANCHES Attending Unavailable CHATO SANCHES Attending Unavailable RINE, KRISTINA L Attending Unavailable RINE, KRISTINA L Attending Unavailable RINE, KRISTINA L Attending Unavailable MAI RUBIO Attending Unavailable RINE, KRISTINA L Attending Unavailable AMARILYS TRUJILLO Attending Unavailable CHATO SANCHES Attending Unavailable Allergies Allergy Classification Reported Allergen(s) Allergy Type Date of Onset Reaction(s) Facility Unclassified (1 source) No Known Medication Allergies; Translations: [No Known Medication Allergies] Propensity to adverse reactions to drug (disorder) [facility] Repository Medications Current Medications Medication Drug [...] days 28 tablet 0 02/14/2023 02/21/2023 Active atorvastatin 10 mg oral tablet (10 sources) HMG-CoA Reductase Inhibitor Start: 11-20-2023 take 1 tablet by mouth once daily atorvastatin (Lipitor) 10 MG tablet Indications: Mixed hyperlipidemia (CMS/HCC) Take 1 tablet (10 mg) by mouth Daily 90 tablet 3 11/20/2023 Active bifidobacterium animalis [id number] unt / lactobacillus acidophilus [id number] unt oral capsule (10 sources) Probiotic Produc t (Probiotic Daily) capsule Active bisacodyl 5 mg delayed release oral tablet (2 sources) Stimulant Laxative Start: 03-19-2024 End: 03-19-2024 take 1 tablet by mouth once bisacodyl (Dulcolax) 5 MG EC tablet Indications: Screening for malignant neoplasm of colon Take 1 tablet (5 mg) by mouth 1 time for 1 dose Do not crush, chew, or split. Take as detailed on clinic hand out for colonoscopy prep 4 tablet 03/19/2024 03/19/2024 Active bisoprolol fumarate 5 mg / hydroCHLOROthiazide 6.25 mg oral tablet (14 sources) Thiazide Diuretic, beta-Adrenergic Masha Start: 11-20-2023 take 1 tablet by mouth once daily bisoprolol-hydroCHL OROthiazide (Ziac) 5-6.25 MG tablet Indications: Primary hypertension (CMS/HCC) Take 1 tablet by mouth Daily 90 tablet 3 11/20/2023 Active Start: 07-23-2022 bisoprolol-hyd roCHLOROthiazide (ZIAC) 5-6.25 MG per tablet Start: 05-12-2017 take 1 tablet by brenda th once daily bisoprolol-hydrochlorothiazide (ZIAC) 5- 6.25 mg per tablet Take 1 tablet by mouth daily. 05/12/2017 Active calcium carbonate 500 mg oral tablet (10 sources) calcium carbonat e (Os-Kelsey) 1250 (500 Ca) MG tablet Take 500 mg by mouth 1 (one) time each day at the same time. Active cholecalciferol 0.125 mg oral capsule (10 sources) Vitamin D take 1 capsule by mouth once in the morning Cholecalciferol (Vitamin D) 125 MCG (5000 UT) capsule Take 125 mcg by mouth in the morning. Active Continuous Glucose Sensor (Dexcom G7 Sensor) [facility] [place] (10 sources) Start: Continuous Glucose Sensor (Dexcom G7 Sensor) [facility] [place] Indications: Uncontrolled type 2 diabetes mellitus with hyperglycemia (CMS/HCC) 1 Units every 14 (fourteen) days 2 each 10/16/2023 Active empagliflozin 10 mg oral tablet (10 sources) Sodium-Glucose Cotransporter 2 Inhibitor Start: 024 take 1 tablet by mouth once daily empagliflozin (Jardiance) 10 MG Indications: Uncontrolled type 2 diabetes mellitus with hyperglycemia (CMS/HCC) Take 1 tablet (10 mg) by mouth Daily 90 tablet 3 02/13/2024 Active ethinyl estradiol 0.035 mg / norgestimate 0.25 mg oral tablet (3 sources) Progestin, Estrogen Start: 023 take 1 tablet by mouth once daily, then take 0.25-35 tablets by mouth once norgestimate-ethinyl estradiol (ORTHO-CYCLEN) 0.25-35 MG-MCG per tablet Take 1 tablet by mouth daily 0 08/22/2022 Active ferrous sulfate 324 mg delayed release oral tablet (3 sources) Start: 023 take 1 tablet by mouth once daily ferrous sulfate 324 (65 Fe) MG EC tablet Take 1 tablet by mouth daily 0 08/02/2022 Active fluticasone propionate 0.05 mg/actuat metered dose nasal spray (10 sources) Corticosteroid Start: 024 End: 025 take 1-2 spray(s) nasal route once daily fluticasone (Flonase) 50 MCG/ACT nasal spray Indications: Acute dysfunction of both eustachian tubes Administer 1-2 sprays into each nostril Daily Shake gently. Before first use, prime pump. After use, clean tip and replace cap. 08/21/2023 08/20/2024 Active levothyroxine sodium 0.125 mg oral tablet (13 sources) l-Thyroxine Start: 023 levothyroxine (Synthroid) 125 MCG tablet Indications: Hypothyroidism due to acquired atrophy of thyroid (CMS/HCC) TAKE 1 TABLET DAILY IN THE MORNING ON AN EMPTY STOMACH 90 tablet 3 03/27/2023 Active Start: 07-23-2022 SYNTHROID 125 MCG tablet lisinopril 2.5 mg oral tablet (9 sources) Angiotensin Converting Enzyme Inhibitor Start: 02-20-2024 End: 02-19-2025 take 1 tablet by mouth once daily lisinopril 2.5 MG tablet Indications: Type 2 diabetes mellitus with other specified complication (CMS/HCC) Take 1 tablet (2.5 mg) by mouth Daily 90 tablet 3 02/20/2024 02/19/2025 Active medroxyPROGESTERone acetate 10 mg oral tablet (3 sources) Progestin Start: 05-06-2024 End: 09-03-2024 take 1 tablet by mouth once daily medroxyPROGESTERone (Provera) 10 MG tablet Indications: Menorrhagia with regular cycle Take 1 tablet (10 mg) by mouth Daily Take 1 tablet by mouth daily for 7 days beginning on day 16 of the menstrual cycle. 30 tablet 3 05/06/2024 09/03/2024 Active Start: 12-05-2023 End: 03-04-2024 take 1 tablet by mouth once daily medroxyPROGESTERone (Provera) 10 MG tablet Indications: DUB (dysfunctional uterine bleeding) Take 1 tablet (10 mg) by mouth Daily 30 tablet 2 12/05/2023 03/04/2024 Active meloxicam 15 mg oral tablet (1 source) Nonsteroidal Anti-inflammatory Drug Start: 05-01-2017 take 1 tablet by mouth once daily meloxicam (MOBIC) 15 MG tablet Take 1 tablet by mouth daily. 05/01/2017 Active 24 hr metFORMIN hydrochloride 500 mg extended release oral tablet (13 sources) Biguanide Start: 10-16-2023 take 1 tablet by mouth every twenty-four hours in the morning metFORMIN XR (Glucophage-XR) 500 MG 24 hr tablet Indications: Elevated glucose Take 1 tablet (500 mg) by mouth in the morning and 1 tablet (500 mg) before bedtime. 180 tablet 3 02/19/2024 Active Start: 08-31-2022 take 1 tablet by brenda th once daily at dinner metFORMIN (GLUCOPHAGE-XR) 500 MG extended release tablet take 1 tablet by mouth every evening with EVENING MEAL 0 08/31/2022 Active minocycline 100 mg oral capsule (1 source) Tetracycline-class Drug take 1 capsule by mouth once daily, then take 1 capsule by mouth minocycline (MINOCIN,DYNACIN) 100 MG capsule Take 100 mg by mouth daily. Active pantoprazole 40 mg delayed release oral tablet (14 sources) Proton Pump Inhibitor Start: 2023 take 1 tablet by mouth before mealtime pantoprazole (ProtoNix) 40 MG EC tablet Indications: Gastroesophageal reflux disease, unspecified whether esophagitis present Take 1 tablet (40 mg) by mouth in the morning. Take before meals. 90 tablet 1 11/20/2023 Active Start: 07-23-2022 pantoprazole ( PROTONIX) 40 MG tablet Start: 05-20-2017 take 1 tablet by brenda th once daily pantoprazole (PROTONIX) 40 MG tablet Take 1 tablet by mouth daily. 05/20/2017 Active polyethylene glycol 3350 16937 mg powder for oral solution (2 sources) Osmotic Laxative Start: 03-19-2024 End: 03-19-2024 take 17 g by mouth once polyethylene glycol, PEG, 3350 (Glycolax) 17 GM/SCOOP powder Indications: Colonoscopy Take 238 g by mouth 1 (one) time for 1 dose Take as detailed from clinic hand out for colonoscopy prep 238 g 03/19/2024 03/19/2024 Active raNITIdine 150 mg oral tablet (1 source) Histamine-2 Receptor Antagonist Start: 04-09-2017 take 1 tablet by mouth twice daily ranitidine (ZANTAC) 150 MG tablet Take 1 tablet by mouth 2 (two) times a day . 04/09/2017 Active sodium fluoride 0.011 mg/mg toothpaste (10 sources) Start: 11-10-2022 Sodium Fluorid e 5000 PPM 1.1 % paste Take by mouth 2 (two) times a day. 11/10/2022 Active tiZANidine 4 mg oral capsule (1 source) Central alpha-2 Adrenergic Agonist take 1 capsule by mouth once as needed for muscle spasms, then take 1 capsule by mouth as needed for muscle spasms tiZANidine (ZANAFLEX) 4 MG capsule Take 4 mg by mouth nightly as needed for muscle spasms. Active Completed/Discontinued Medications Medication Drug Class(es) Dates Sig (Normalized) Sig (Original) amoxicillin 875 mg / clavulanate 125 mg oral tablet (4 sources) Penicillin-class Antibacterial Start: 03-10-2024 End: 03-19-2024 take 1 tablet by mouth in the morning amoxicillin-clavul anate (Augmentin) 875-125 MG tablet Indications: Urinary tract infection without hematuria, site unspecified Take 1 tablet (875 mg) by mouth in the morning and 1 tablet (875 mg) before bedtime. Do all this for 7 days. 14 tablet 03/10/2024 03/19/2024 Discontinued (Therapy completed) fluconazole 100 mg oral tablet (4 sources) Azole Antifungal Start: 03-28-2024 End: 05-06-2024 take 1 tablet by mouth once daily fluconazole (Diflucan) 100 MG tablet Indications: Acute vaginitis Take 1 tablet (100 mg) by mouth Daily 7 tablet 03/28/2024 05/06/2024 Discontinued iopamidol (ISOVUE-370) 76 % injection 75 mL (1 source) Start: 02-14-2023 End: 02-14-2023 iopamidol (ISOVUE-370) 76 % injection 75 mL triamcinolone acetonide 1 mg/ml topical cream (10 sources) Corticosteroid Start: 11-20-2023 End: 05-06-2024 triamcinolone (Kenalog) 0.1 % cream Indications: Allergic contact dermatitis due to food in contact with skin Apply topically 2 (two) times a day as needed (pain and swelling) 30 g 3 11/20/2023 05/06/2024 Discontinued Problems Active Problems Problem Classification Problem Date Documented Date Episodic/Chronic Deficiency and other anemia (1 source) Iron deficiency anemia secondary to blood loss (chronic); Translations: [Iron deficiency anemia secondary to blood loss (chronic)] Onset: 07-24-2023 Chronic Deficiency and other anemia (10 sources) Iron deficiency anemia due to blood loss; Translations: [Iron deficiency anemia secondary to blood loss (chronic)] Onset: 12-11-2022 12-11-2022 Chronic Disorders of lipid metabolism (10 sources) Hypercholesterolemia; Translations: [Pure hypercholesterolemia, unspecified] Onset: 12-11-2022 12-11-2022 Chronic Endometriosis (2 sources) Uterine adenomyosis; Translations: [Adenomyosis] 05-06-2024 Chronic Esophageal disorders (10 sources) Gastroesophageal reflux disease; Translations: [Gastro-esophageal reflux disease without esophagitis] Onset: 12-11-2022 12-11-2022 Chronic Essential hypertension (12 sources) Essential (primary) hypertension; Translations: [Essential hypertension] Onset: 12-11-2022 Chronic Inflammatory diseases of female pelvic organs (1 source) Acute vaginitis; Translations: [Acute vaginitis] 03-28-2024 Episodic Menstrual disorders (20 sources) Excessive and frequent menstruation with irregular cycle; Translations: [Excessive and frequent menstruation] Onset: 12-11-2022 12-11-2022 Chronic Nutritional deficiencies (10 sources) Vitamin D deficiency; Translations: [Vitamin D deficiency, unspecified] Onset: 12-11-2022 12-11-2022 Chronic Osteoarthritis (10 sources) Arthritis; Translations: [Unspecified osteoarthritis, unspecified site] Onset: 12-11-2022 12-11-2022 Chronic Other lower respiratory disease (1 source) Dyspnea; Translations: [Dyspnea, unspecified] 02-14-2023 Episodic Other nervous system disorders (10 sources) Carpal tunnel syndrome of right wrist; Translations: [Carpal tunnel syndrome, right upper limb] Onset: 12-11-2022 12-11-2022 Chronic Other nutritional; endocrine; and metabolic disorders (10 sources) Obesity; Translations: [Obesity, unspecified] Onset: 12-11-2022 03-19-2023 Chronic Other screening for suspected conditions (not mental disorders or infectious disease) (7 sources) Patient encounter status; Translations: [Encounter for screening mammogram for malignant neoplasm of breast] Onset: 02-14-2023 Episodic Other upper respiratory disease (10 sources) Seasonal allergy; Translations: [Other seasonal allergic rhinitis] Onset: 12-11-2022 12-11-2022 Chronic Spondylosis; intervertebral disc disorders; other back problems (10 sources) Inflammation of sacroiliac joint; Translations: [Sacroiliitis, not elsewhere classified] Onset: 12-11-2022 12-11-2022 Chronic Thyroid disorders (20 sources) Non-toxic uninodular goiter; Translations: [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] Onset: 12-11-2022 11-20-2023 Chronic Unclassified (2 sources) Patient encounter status; Translations: [Breast cancer screening by mammogram] Urinary tract infections (1 source) Urinary tract infectious disease; Translations: [Urinary tract infection, site not specified] 03-10-2024 Episodic Past or Other Problems Problem Classification Problem Date Documented Da te Episodic/Chronic Deficiency and other anemia (10 sources) Microcytic anemia; Translations: [Iron deficiency anemia, unspecified] Onset: 02-28-2023 03-19-2023 Episodic Diabetes mellitus without complication (11 sources) Other abnormal glucose; Translations: [Increased glucose level] Onset: 12-11-2022 12-11-2022 Episodic Immunizations and screening for infectious disease (2 sources) Other specified abnormal immunological findings in serum; Translations: [Other specified abnormal immunological findings in serum] Onset: 06-11-2017 Episodic Other connective tissue disease (2 sources) Myalgia; Translations: [Myalgia] Onset: 06-11-2017 Episodic Other connective tissue disease (1 source) Pain in right lower leg; Translations: [Pain in right lower leg] Onset: 02-14-2023 Episodic Other female genital disorders (10 sources) Abnormal vaginal bleeding; Translations: [Abnormal uterine and vaginal bleeding, unspecified] Onset: 12-11-2022 Resolved: 12-12-2022 12-12-2022 Chronic Other lower respiratory disease (1 source) Dyspnea, unspecified; Translations: [Dyspnea, unspecified] Onset: 02-14-2023 Episodic Other nervous system disorders (2 sources) Anesthesia of skin; Translations: [Anesthesia of skin] Onset: 06-11-2017 Episodic Other nervous system disorders (10 sources) Numbness of upper limb; Translations: [Anesthesia of skin] Onset: 12-11-2022 Resolved: 11-20-2023 11-20-2023 Episodic Phlebitis; thrombophlebitis and thromboembolism (10 sources) Deep venous thrombosis of lower extremity; Translations: [Acute embolism and thrombosis of right femoral vein] Onset: 03-19-2023 Resolved: 11-20-2023 11-20-2023 Episodic Pulmonary heart disease (10 sources) Pulmonary embolism; Translations: [Other pulmonary embolism with acute cor pulmonale] Onset: 03-19-2023 Resolved: 11-20-2023 11-20-2023 Chronic Pulmonary heart disease (12 sources) Pulmonary embolism; Translations: [Other pulmonary embolism without acute cor pulmonale] Onset: 02-28-2023 Resolved: 11-20-2023 02-14-2023 Episodic Results Test Name Value Interpretation Reference Range Facility [facility] 12-21-2023 L Specimen: [id number] Received: 12/24/23 Status: KYLAH Corbett Num: [id number] Spec Type: Surgical Subm Dr: Chato Sanches Tissues: A Fallopian Tube - Sterilization (BILAT TUBES) Procedures: HE/2, Gross/Micro L2 Age/ Patient Sex Location Account Attending Physician Mai Lyons 48/F LABELL [id number] Chato Sanches SPEC NUM: [id number] RECD: 12/24/23 STATUS: MAGITeo CORBETT NUM: [id number] JESUS: 12/21/[address]: Chato Sanches ENTERED: 12/24/[address] [facility] [address]: Bright,Lab SPEC TYPE: Surgical DEPT: DARYL ADDISON ORDERED: HE/2, Gross/Micro L2 ORDERED: HE/2, Gross/Micro L2 Pathological Diagnosis Bilateral fallopian tubes, segmental resection: No significant pathologic abnormality. Clinical Information Request for sterilization, menorrhagia, abnormal uterine bleeding, pelvic pain Gross Description Received in formalin labeled with the patient's name, date of and bilateral fallopian tubes are 2 undesignated fimbriated fallopian tubes assigned as #1 and #2. Each tube is covered by mackey-purple serosa. Tube #1 measures 4.6 cm in length by 0.5-0.9 cm in diameter and tube #2 measures 5.2 cm in length by 0.7 cm in diameter. Cut sections for each tube demonstrate an intact luminal center lined by unremarkable mackey mucosa. Glass Bulb Machine Adjuster sections of each tube are submitted in A1 (tube #1) and A2 (tube #2). CPT Codes 76322 Specimen: [id number] Received: 12/24/23 Status: KYLAH Corbett Num: [id number] Spec Type: Surgical Subm Dr: Chato Sanches Tissues: A Fallopian Tube - Sterilization (BILAT TUBES) Procedures: HE/2, Gross/Micro L2 Patient: Mai Lyons [id number] (Continued) Signed (signature on file) Luis Manuel Alvares MD 12/26/23 1557 Normal [facility] MEGHAN DIGITAL SCREEN CRISTY Rickettschikis 12-05-2023 [facility] MEGHAN DIGITAL SCREEN BILATERAL EXAMINATION: SCREENING DIGITAL [...] to the patient regarding the results. [employer] recommends annual mammograms for women 40 years and older. Interpreted by: Leonidas Russo DO Signed by: Leonidas Russo DO 12/05/23 Final result Normal [facility] BOB [id number] 10-25-2023 BOB Cytoplasmic Pattern-[place] Not Reported Normal [facility] Comment on above: Performed By: #### A ntinuclear Antibody HEp-2 Substrate-May #### [facility] [address] [place] [address] BOB Lab Comment-[place] Not Reported Normal [facility] Comment on above: Performed By: #### A ntinuclear Antibody HEp-2 Substrate-May #### [facility] [address] [place] [address] BOB Pattern (2)-[place] Not Reported Normal [facility] Comment on above: Performed By: #### A ntinuclear Antibody HEp-2 Substrate-May #### [facility] [address] [place] [address] BOB Pattern-[place] Homogeneous Normal [facility] Comment on above: Result Comment: Test Performed by: [facility] [address] [place] [address] Apparel Stock Checker: Isac Thompson M.D. Ph.D.; CLIA# [id number] Performed By: #### A ntinuclear Antibody HEp-2 Substrate-May #### [facility] [address] [place] [address] BOB Titer (2)-[place] Not Reported Normal [facility] Comment on above: Performed By: #### A ntinuclear Antibody HEp-2 Substrate-May #### [facility] [address] [place] [address] BOB Titer-[place] 1:160 Normal [facility] Comment on above: Performed By: #### A ntinuclear Antibody HEp-2 Substrate-May #### [facility] [address] [place] [address] HEp-2 BOB-[place] Positive Abnormal <1:80 (Negative) [facility] Comment on above: Result Comment: ADDITIONAL INFORMATION Method: Immunofluorescence using HEp-2 cellular substrate. Performed By: #### A ntinuclear Antibody HEp-2 Substrate-May #### [facility] [address] [place] [address] Lupus Profon 10-25-2023 La Interpretation No evidence of a lup us-like anticoagulant based on normal results of PT, aPTT and DRVVT. Normal [facility] Comment on above: Performed By: #### L APT #### [facility] [address] [place] [address] La1 DRVVT 33.2 seconds [facility] Comment on above: Performed By: #### L APT #### [facility] [address] [place] [address] La1 Normal Pool 33.2 seconds Normal [facility] Comment on above: Performed By: #### L APT #### [address] [address] La1 Ratio 1.00 ratio Normal 0.10-1.19 [facility] Comment on above: Performed By: #### L APT #### [address] [address] Phosph-Cardio IgG/M-[place] 0 10-25-2023 IgG Phospholip Ab-[place] <9.4 Normal <15.0 (Negative) [facility] Comment on above: Result Comment: Test Performed by: [facility] [address] Apparel Stock Checker: Isac Thompson M.D. Ph.D.; CLIA# [id number] Performed By: #### P hospholip Ab (Cardiolip) IgM/IgG Evalua #### [place] [id number] IgM Phospholip Ab-[place] <9.4 Normal <15.0 (Negative) [facility] Comment on above: Performed By: #### P hospholip Ab (Cardiolip) IgM/IgG Evalua #### [address] [address] Beta 2 Glycoprotein 1 Abs Ig G and IgM, [facility] 10-24-2023 Beta 2 GP1 Ab IgG-[place] <9.4 Normal <15.0 (Negative) [facility] Comment on above: Performed By: #### C [id number] #### [facility] [address] [place] [address] Beta 2 GP1 Ab IgM-[place] <9.4 Normal <15.0 (Negative) [facility] Comment on above: Result Comment: Test Performed by: [facility] [email or web address] [address] Apparel Stock Checker: Isac Thompson M.D. Ph.D.; CLIA# [id number] Performed By: #### C [id number] #### [facility] [address] [place] [address] C3-[place] 10-24-2023 C3-Rodriguez 126 mg/dL Normal 75 - 175 [facility] Comment on above: Result Comment: Test Performed by: [facility] [email or web address] [address] Apparel Stock Checker: Isac Thompson M.D. Ph.D.; CLIA# [id number] Performed By: #### C omplement C3-[place] #### [facility] [address] [place] [address] C4-[facility] 10-24-2023 C4-Rodriguez 14 mg/dL Normal 14 - 40 [facility] Comment on above: Result Comment: Test Performed by: [facility] [email or web address] [address] Apparel Stock Checker: Isac Thompson M.D. Ph.D.; CLIA# [id number] Performed By: #### C omplement C4-Rodrig[place] #### [facility] [address] [place] [id number] DS DNA IgG-[facility] 10-24-2023 DS-DNA IgG-[place] 140 IU/mL High 0 - 99 [facility] Comment on above: Result Comment: Inte rpretation: Positive (>=100) A positive result for anti-double stranded DNA (anti-dsDNA) IgG antibody in the context of antinuclear antibody positivity, specific clinical features and laboratory tests is a diagnostic criterion of systemic lupus erythematosus (SLE). ADDITIONAL INFORMATION On 06/19/2023, [facility] [email or web address] implemented a new Double-Stranded DNA (dsDNA) Antibodies method. If patient was tested on previous method and is undergoing serial monitoring, rebaselining may be indicated. Rebaselining, or testing the current sample on the previous method, is available at no charge, subject to reagent availability. The rebaseline result will be added to this report. Contact [facility] [email or web address] at within 7 days of initial report issuance to request this service. For [facility] patients, call [phone]. Test Performed by: [facility] [email or web address] [address] Apparel Stock Checker: Isac Thompson M.D. Ph.D.; CLIA# [id number] Performed By: #### C omplement [place] #### [facility] [address] [place] [address] .eGFRon 10-23-2023 GFR/1.73 sq M.predicted MDRD (S/P/Bld) [Vol rate/Area] mL/min/{1.73_m2} Normal >=60 [facility] Comment on above: Result Comment: [facility] Laboratories have implemented the eGFR calculation approach [...] years Performed By: #### E GFR #### [facility] [address] [place] [address] BUNon 10-23-2023 Urea nitrogen [Mass/Vol] 19 mg/dL Normal 8-26 [facility] Comment on above: Performed By: #### B UN #### [facility] [address] [place] [address] Creatinineon 10-23-2023 Creatinine [Mass/Vol] 0.99 mg/dL Normal 0.44-1.03 [facility] Comment on above: Performed By: #### C omplement [address] #### [facility] [address] [place] [address] Lupus Profon 10-23-2023 aPTT Coag (Bld) [Time] 21.7 s Normal 17.3-30.3 [facility] Comment on above: Performed By: #### L APT #### [facility] [address] [place] [address] PT La 10.5 seconds Normal 8.5-12.7 [facility] Comment on above: Performed By: #### L APT #### [facility] [address] [place] [address] Rheumatology Office/Clinic N martinon 10-23-2023 Rheumatology Office/Clinic Note Chief Complaint Follow [...] BOB positive Pt previously referred for positive BOB in the setting of intermittent paresthesias, which [...] Follow-up if symptoms worsen Ordered: Antinuclear Antibody [facility]-[address] [place] [address]-[place] Beta 2 Glycoprotein 1 Abs IgG and IgM, Serum-[place] BUN Complement C3-[place] Complement C4-[place] Creatinine DNA Double-Stranded IgG Antibody-[place] Lupus Anticoagulant Profile Phospholip Ab (Cardiolip) IgM/IgG Evaluation-[place] 2. Pulmonary emboli Check antiphospholipid antibodies Ordered: Antinuclear Antibody HEp-2 Substrate-[place] Beta 2 Glycoprotein 1 Abs IgG and IgM, Serum-[place] BUN Complement C3-[place] Complement C4-[place] Creatinine DNA Double-Stranded IgG Antibody-[place] Lupus Anticoagulant Profile Phospholip Ab (Cardiolip) IgM/IgG Evaluation-[place] Medical Decision Making Chronic conditions NOT treated [...] BNT-162b2 vaccine / Pfizer Electronically signed by Kaur Yonathan GAITAN 10/23/23 09:12 EDT Electronically signed by Abhi, Delilah E 10/23/2023 09:00 EDT Normal [facility] U Prot Randomon 10-16-2023 Ur Protein <6 Normal <=10 [facility] Comment on above: Performed By: #### U RRTP #### [facility] [address] [place] [address] HGB A1C (GLYCO-HGB)on 2023 Glucose [Mass/Vol] 223 mg/dL Normal [facility] Comment on above: Performed By: #### H A1C #### [facility] ([id number]) [address] [place] [address], [address] [place] [address] HbA1c (Bld) [Mass fraction] 9.4 % High 4.4-5.6 [facility] Comment on above: Result Comment: NOTE ADA Guidelines Result HgbA1c Normal : less than 5.7 % Prediabetes : 5.7 % to 6.4 % Diabetes : > 6.4 % Use with caution in patients with abnormal hemoglobin variants as the half-life of red blood cells and in vivo glycation rates are affected. Performed By: #### H A1C #### [facility] ([id number]) [address] [facility], [address] [place] [address] Factor V Mutationon 07-27-19 24 F 5 SPECIMEN Whole Blood Normal [facility] Comment on above: Performed By: #### A F5MUT, AMTHFR, APTMUT #### [facility] [address] [place] [address] Apparel Stock Checker: Rfaa Andrea MD #### LEBRON BUSH CDP #### [facility] [address] [place] [address] Apparel Stock Checker: Nghia Crawford MD FACTOR 5 MUTATION Negative Normal [facility] Comment on above: Result Comment: (NOT E) Indication for testing: Assess genetic risk for thrombosis. NEGATIVE: The factor V Leiden variant, c.1601G>A; p.Rzh568Avx, was not detected. This does not exclude [...] function in the F5 gene variant c.1601G>A (p.Yov682Xyl). Legacy nomenclature: [id number] (1691G>A) CLINICAL SENSITIVITY: 20-50 percent of individuals with an isolated VTE have the FVL variant. METHODOLOGY: Polymerase chain reaction and fluorescence monitoring. ANALYTICAL SENSITIVITY AND SPECIFICITY: 99 percent. LIMITATIONS: Diagnostic errors can occur due to rare sequence variations. F5 gene mutations, other than p.Nva265Wze, will not be detected. This test was developed and its performance characteristics determined by [facility]. It has not been cleared or approved by the [place] Food and Drug Administration. This test was performed in a CLIA certified laboratory and is intended for clinical purposes. Counseling and informed consent are recommended for genetic testing. Consent forms are available online. Performed By: [facility] [address] [place] [address] Beta Tester: Rei Mixon MD, PhD [place] Number: [id number] Performed By: #### A F5MUT, AMTHFR, APTMUT #### [facility] [address] [place], [place] [id number] Apparel Stock Checker: Rafa Andrea MD #### LEBRON BUSH CDP #### [facility] [address] [place] [address] Apparel Stock Checker: Nghia Crawford MD MTHFR Gene Mutationon 2023 MTHFR 1286 A>C Mut Negative Normal [facility] Comment on above: Performed By: #### A F5MUT, AMTHFR, APTMUT #### [facility] [address] [place] [address] Apparel Stock Checker: Rafa Andrea MD #### LEBRON BUSH CDP #### [facility] [address] [place] [address] Apparel Stock Checker: Nghia Crawford MD MTHFR 655C>T Mut Negative Normal [facility] Comment on above: Performed By: #### A F5MUT, AMTHFR, APTMUT #### [facility] [address] [place] [address] Apparel Stock Checker: Rafa Andrea MD #### LEBRON BUSH CDP #### [facility] [address] [place] [address] Apparel Stock Checker: Nghia Crawford MD MTHFR Interpretation See Note Normal [facility] Comment on above: Result Comment: (NOT E) Indication for testing: Determine genetic contribution to hyperhomocysteinemia. Negative: Neither of the common MTHFR gene variants tested, c.665C>T (previously designated C677T) and c.1286A>C (previously designated Z1715E), were detected. Other causes of elevated homocysteine [...] has an effect on cardiovascular disease. The [employer] Practice Guidelines indicate [...] a contributing factor to hyperhomocysteinemia. Variants Tested: c.665C>T(p.Swr749Pjc) and c.1286A>C(p.Nwp519Wdb). (legacy names C677T and B7045E, respectively). Clinical Sensitivity: Undefined; hyperhomocysteinemia is caused [...] developed and its performance characteristics determined by [facility]. It has not been cleared or approved by the US Food and Drug Administration. This test was performed in a CLIA certified laboratory and is intended for clinical purposes. Counseling and informed consent are recommended for genetic testing. Consent forms are available online. Performed By: [facility] [address] [place] [id number] Beta Tester: Rei Mixon MD, PhD CLIA Number: [id number] Performed By: #### A F5MUT, AMTHFR, APTMUT #### [facility] [address] [address] Apparel Stock Checker: Rafa Andrea MD #### LEBRON BUSH CDP #### [facility] [address] [place] [address] Apparel Stock Checker: Nghia Crawford MD MTHFR SPECIMEN Whole Blood Normal [facility] Comment on above: Performed By: #### A F5MUT, AMTHFR, APTMUT #### [facility] [address] [address] Apparel Stock Checker: Rafa Andrea MD #### LEBRON BUSH CDP #### [facility] [address] [place] [address] Apparel Stock Checker: Nghia Crawford MD PT Mutation [id number] 07-26-19 24 PT [id number] VARIANT Negative Normal [facility] Comment on above: Result Comment: (NOT E) Indication for testing: Assess genetic risk for thrombosis. NEGATIVE: The Factor II, prothrombin C75618E mutation, was not detected. Other causes of [...] M.D., Ph.D. BACKGROUND INFORMATION: Prothrombin (F2) c.*97G>A (G92791V) Pathogenic Variant CHARACTERISTICS: The Factor II, c.*97G>A (E29188Y) pathogenic variant is a common genetic risk [...] CAUSE: Homozygosity or heterozygosity for F2 c.*97G>A (H13926B). PATHOGENIC VARIANT TESTED: F2 c.*97G>A (M38319A). CLINICAL SENSITIVITY FOR VENOUS THROMBOSIS: Approximately 10 percent. METHODOLOGY: Polymerase chain reaction and fluorescence monitoring. ANALYTICAL SENSITIVITY AND SPECIFICITY: 99 percent. LIMITATIONS: Diagnostic errors can occur due to rare sequence variations. F2 gene variants, other than c.*97G>A (E92992M), will not be detected. This test was developed and its performance characteristics determined by [facility]. It has not been cleared or approved by the US Food and Drug Administration. This test was performed in a CLIA certified laboratory and is intended for clinical purposes. Counseling and informed consent are recommended for genetic testing. Consent forms are available online. Performed By: [facility] [address] [place] [address] Beta Tester: Rei Mixon MD, PhD CLIA Number: [id number] Performed By: #### A F5MUT, AMTHFR, APTMUT #### [facility] [address] [place] [address] Apparel Stock Checker: Rafa Andrea MD #### BUNCRT, DIME, CDP #### [facility] [address] [place], [place] [id number] Apparel Stock Checker: Nghia Crawford MD PT PCR SPECIMEN Whole Blood Normal [facility] Comment on above: Performed By: #### A F5MUT, AMTHFR, APTMUT #### [facility] [address] [place] [address] Apparel Stock Checker: Rafa Andrea MD #### JEFFCRT, DIME, CDP #### [facility] [address] [place] [address] Apparel Stock Checker: Nghia Crawford MD BUN + Creatinineon 4 Creatinine [Mass/Vol] 0.6 mg/dL Normal 0.5-0.9 [facility] Comment on above: Performed By: #### A F5MUT, AMTHFR, APTMUT #### [facility] [address] [place], [place] [id number] Apparel Stock Checker: Rafa Andrea MD #### BUNCRT, DIME, CDP #### [facility] [address] [place] [address] Apparel Stock Checker: Nghia Crawford MD GFR/1.73 sq M.predicted among non-blacks MDRD (S/P/Bld) [Vol rate/Area] mL/min/{1.73_m2} Normal >60 [facility] Comment on above: Result Comment: These [...] F5MUT, AMTHFR, APTMUT #### [facility] [address] [place] [address] Apparel Stock Checker: Rafa Andrea MD #### LEBRON BUSH, CDP #### [facility] [address] [place] [address] [place] [address] Apparel Stock Checker: Nghia Crawford MD Urea nitrogen [Mass/Vol] 9 mg/dL Normal 6-20 [facility] Comment on above: Performed By: #### A F5MUT, AMTHFR, APTMUT #### [facility] [address] [place], [place] [id number] Apparel Stock Checker: Rafa Andrea MD #### LEBRON BUSH, CDP #### [facility] [address] [place] [address] [place] [address] Apparel Stock Checker: Nghia Crawford MD CBC with Diffon 07-24-2023 Abs. Basophil 0.05 k/uL Normal 0.00-0.20 [facility] Comment on above: Performed By: #### A F5MUT, AMTHFR, APTMUT #### [facility] [address] [place], [place] [id number] Apparel Stock Checker: Rafa Andrea MD #### LEBRON BUSH, CDP #### [facility] [address] [place] [address] [place] [address] Apparel Stock Checker: Nghia Crawford MD Abs.Imm.Granulocyt e <0.03 Normal 0.00-0.30 [facility] Comment on above: Performed By: #### A F5MUT, AMTHFR, APTMUT #### [facility] [address] [place], [place] [id number] Apparel Stock Checker: Rafa Andrea MD #### LEBRON BUSH, CDP #### [facility] [address] [place] [address] [place] [address] Apparel Stock Checker: Nghia Crawford MD Abs.Neutrophil (Seg) 2.80 k/uL Normal 1.50-8.10 [facility] Comment on above: Performed By: #### A F5MUT, AMTHFR, APTMUT #### [facility] [address] [place] [address] Apparel Stock Checker: Rafa Andrea MD #### LEBRON BUSH CDP #### [facility] [address] [place] [address] [place] [address] Apparel Stock Checker: Nghia Crawford MD Basophils/100 WBC (Bld) 1 % Normal 0-2 [facility] Comment on above: Performed By: #### A F5MUT, AMTHFR, APTMUT #### [facility] [address] [place], [place] [id number] Apparel Stock Checker: Rafa Andrea MD #### LEBRON BUSH CDP #### [facility] [address] [place] [address] [place] [address] Apparel Stock Checker: Nghia Crawford MD Eosinophils (Bld) [#/Vol] 0.10 10*3/uL Normal 0.00-0.44 [facility] Comment on above: Performed By: #### A F5MUT, AMTHFR, APTMUT #### [facility] [address] [place] [address] Apparel Stock Checker: Rafa Andrea MD #### LEBRON BUSH, CDP #### [facility] [address] [place] [address] [place] [address] Apparel Stock Checker: Nghia Crawford MD Eosinophils/100 WBC (Bld) 2 % Normal 1-4 [facility] Comment on above: Performed By: #### A F5MUT, AMTHFR, APTMUT #### [facility] [address] [place] [address] Apparel Stock Checker: Rafa Andrea MD #### LEBRON BUSH, CDP #### [facility] [address] [place] [address] [place] [address] Apparel Stock Checker: Nghia Crawford MD Erythrocyte distribution width (RBC) [Ratio] 13.2 % Normal 11.8-14.4 [facility] Comment on above: Performed By: #### A F5MUT, AMTHFR, APTMUT #### [facility] [address] [place] [address] Apparel Stock Checker: Rafa Andrea MD #### LEBRON BUSH, CDP #### [facility] [address] [place] [address] Apparel Stock Checker: Nghia Crawford MD Hematocrit (Bld) [Volume fraction] 44.3 % Normal 36.3-47.1 [facility] Comment on above: Performed By: #### A F5MUT, AMTHFR, APTMUT #### [facility] [address] [place] [address] Apparel Stock Checker: Rafa Andrea MD #### LEBRON BUSH, CDP #### [facility] [address] [place] [address] Apparel Stock Checker: Nghia Crawford MD Hemoglobin (Bld) [Mass/Vol] 15.0 g/dL Normal 11.9-15.1 [facility] Comment on above: Performed By: #### A F5MUT, AMTHFR, APTMUT #### [facility] [address] [place] [address] Apparel Stock Checker: Rafa Andrea MD #### LEBRON BUSH, CDP #### [facility] [address] [place] [address] Apparel Stock Checker: Nghia Crawford MD Immature granulocytes/100 WBC (Bld) 0 % Normal 0 [facility] Comment on above: Performed By: #### A F5MUT, AMTHFR, APTMUT #### [facility] [address] [place] [address] Apparel Stock Checker: Rafa Andrea MD #### LEBRON BUSH, CDP #### [facility] [address] [place] [address] Apparel Stock Checker: Nghia Crawford MD Lymphocytes (Bld) [#/Vol] 0.88 10*3/uL Low 1.10-3.70 [facility] Comment on above: Performed By: #### A F5MUT, AMTHFR, APTMUT #### [facility] [address] [place] [address] Apparel Stock Checker: Rafa Andrea MD #### LEBRON BUSH, CDP #### [facility] [address] [place] [address] Apparel Stock Checker: Nghia Crawford MD Lymphocytes/100 WBC (Bld) 21 % Low 24-43 [facility] Comment on above: Performed By: #### A F5MUT, AMTHFR, APTMUT #### [facility] [address] [place] [address] Apparel Stock Checker: Rafa Andrea MD #### LEBRON BUSH, CDP #### [facility] [address] [place] [address] Apparel Stock Checker: Nghia Crawford MD MCH (RBC) [Entitic mass] 30.0 pg Normal 25.2-33.5 [facility] Comment on above: Performed By: #### A F5MUT, AMTHFR, APTMUT #### [facility] [address] [place] [address] Apparel Stock Checker: Rafa Andrea MD #### LEBRON BUSH, CDP #### [facility] [address] [place] [address] Apparel Stock Checker: Nghia Crawford MD MCHC (RBC) [Mass/Vol] 33.9 g/dL Normal 28.4-34.8 [facility] Comment on above: Performed By: #### A F5MUT, AMTHFR, APTMUT #### [facility] [address] [place] [address] Apparel Stock Checker: Rafa Andrea MD #### LEBRON BUSH CDP #### [facility] [address] [place], [place] [id number] Apparel Stock Checker: Nghia Crawford MD MCV (RBC) [Entitic vol] 88.6 fL Normal 82.6-102.9 [facility] Comment on above: Performed By: #### A F5MUT, AMTHFR, APTMUT #### [facility] [address] [place] [address] Apparel Stock Checker: Rafa Andrea MD #### LEBRON BUSH CDP #### [facility] [address] [place], [place] [id number] Apparel Stock Checker: Nghia Crawford MD Monocytes (Bld) [#/Vol] 0.37 10*3/uL Normal 0.10-1.20 [facility] Comment on above: Performed By: #### A F5MUT, AMTHFR, APTMUT #### [facility] [address] [place] [address] Apparel Stock Checker: Rafa Andrea MD #### LEBRON BUSH, CDP #### [facility] [address] [place], [place] [id number] Apparel Stock Checker: Nghia Crawford MD Monocytes/100 WBC (Bld) 9 % Normal 3-12 [facility] Comment on above: Performed By: #### A F5MUT, AMTHFR, APTMUT #### [facility] [address] [place] [address] Apparel Stock Checker: Rafa Andrea MD #### LEBRON BUSH, CDP #### [facility] [address] [place], [place] [id number] Apparel Stock Checker: Nghia Crawford MD Neutrophil (Seg) 67 % High 36-65 [facility] Comment on above: Performed By: #### A F5MUT, AMTHFR, APTMUT #### [facility] [address] [place] [address] Apparel Stock Checker: Rafa Andrea MD #### LEBRON BUSH CDP #### [facility] [address] [place] [address] Apparel Stock Checker: Nghia Crawford MD NRBC Automated 0.0 per 100 WBC Normal 0.0 [facility] Comment on above: Performed By: #### A F5MUT, AMTHFR, APTMUT #### [facility] [address] [place], [place] [id number] Apparel Stock Checker: Rafa Andrea MD #### LEBRON BUSH, CDP #### [facility] [address] [place] [address] Apparel Stock Checker: Nghia Crawford MD Platelet mean volume (Bld) [Entitic vol] 11.4 fL Normal 8.1-13.5 [facility] Comment on above: Performed By: #### A F5MUT, AMTHFR, APTMUT #### [facility] [address] [place], [place] [id number] Apparel Stock Checker: Rafa Andrea MD #### LEBRON BUSH, CDP #### [facility] [address] [place], [facility] Apparel Stock Checker: Nghia Crawford MD Platelets (Bld) [#/Vol] 183 10*3/uL Normal 138-453 [facility] Comment on above: Performed By: #### A F5MUT, AMTHFR, APTMUT #### [facility] [address] [place], [place] [id number] Apparel Stock Checker: Rafa Andrea MD #### LEBRON BUSH, CDP #### [facility] [address] [place] [address] Apparel Stock Checker: Nghia Crawford MD RBC (Bld) [#/Vol] 5.00 10*6/uL Normal 3.95-5.11 [facility] Comment on above: Performed By: #### A F5MUT, AMTHFR, APTMUT #### [facility] [address] [place] [address] Apparel Stock Checker: Rafa Andrea MD #### LEBRON BUSH CDP #### [facility] [address] [place] [address] Apparel Stock Checker: Nghia Crawford MD WBC (Bld) [#/Vol] 4.2 10*3/uL Normal 3.5-11.3 [facility] Comment on above: Performed By: #### A F5MUT, AMTHFR, APTMUT #### [facility] [address] [place] [address] Apparel Stock Checker: Rafa Andrea MD #### LEBRON BUSH CDP #### [facility] [address] [place] [address] Apparel Stock Checker: Nghia Crawford MD CT CHEST PULMONARY EMBOLISM [...] by: Pete Carranza MD Signed by: Pete aCrranza MD 07/24/23 Final result Normal [facility] D-Dimer Teston 07-24-2023 D-Dimer Test <0.27 Normal 0.00-0.59 [facility] Comment on above: Result Comment: When [...] F5MUT, AMTHFR, APTMUT #### [facility] [address] [place] [address] Apparel Stock Checker: Rafa Andrea MD #### LEBRON BUSH CDP #### [facility] [address] [place] [address] Apparel Stock Checker: Nghia Crawford MD C3-[facility] 05-29-2023 [place]3-[place] 134 mg/dL Normal 75 - 175 [facility] Comment on above: Result Comment: Test Performed by: [facility] [address] Apparel Stock Checker: Isac Thompson M.D. Ph.D.; CLIA# [id number] Performed By: #### C omplement C3-[place] #### [facility] [address] [place] [address] C4-[place] 05-29-2023 C4-[place] 12 mg/dL Low 14 - 40 [facility] Comment on above: Result Comment: Test Performed by: [facility] [address] Apparel Stock Checker: Isac Thompson M.D. Ph.D.; CLIA# [id number] Performed By: #### C omplement C3-[place] #### [facility] [address] [place] [id number] DS DNA IgG-[facility] 05-26-2023 DS-DNA IgG-[place] 59.0 IU/mL High <30.0 (Negative) [facility] Comment on above: Result Comment: Inte rpretation: Borderline (30.0-75.0) Test Performed by: [facility] [address] Apparel Stock Checker: Isac Thompson M.D. Ph.D.; CLIA# [id number] Performed By: #### C omplement C3[place] #### [facility] [address] [place] [address] U Prot Randomon 05-24-2023 Ur Protein 18 mg/dL High <=10 [facility] Comment on above: Performed By: #### C omplement C3[place] #### [facility] [address] [place] [address] BUN + Creatinineon 3 Creatinine [Mass/Vol] 0.8 mg/dL Normal 0.5-0.9 [facility] Comment on above: Performed By: #### B UNCRT #### [facility] [address] [place] [address] Apparel Stock Checker: Nghia Crawford MD GFR/1.73 sq M.predicted among non-blacks MDRD (S/P/Bld) [Vol rate/Area] mL/min/{1.73_m2} Normal >60 [facility] Comment on above: Result Comment: These [...] secretion. Performed By: #### B UNCRT #### [facility] [address] [place] [address] Apparel Stock Checker: Nghia Crawford MD Urea nitrogen [Mass/Vol] 10 mg/dL Normal 6-20 [facility] Comment on above: Performed By: #### B UNCRT #### [facility] [address] [place] [address] Apparel Stock Checker: Nghia Crawford MD Basic Metabolic Panelon - Anion gap [Moles/Vol] 11 mmol/L 9 - 17 mmol/L [facility] Calcium [Mass/Vol] 9.0 mg/dL 8.6 - 10. 4 mg/dL [facility] Chloride [Moles/Vol] 104 mmol/L 98 - 107 mmol/L [facility] CO2 [Moles/Vol] 22 mmol/L 20 - 31 mmol/L [facility] Creatinine [Mass/Vol] 0.8 mg/dL 0.5 - 0.9 mg/dL [facility] GFR/1.73 sq M.predicted MDRD (S/P/Bld) [Vol rate/Area] - PINF [facility] Comment on above: These results are not [...] 106 mg/dL High 70 - 99 mg/dL [facility] Interpretation and review of laboratory results Abnormal [facility] Potassium [Moles/Vol] 4.6 mmol/L 3.7 - 5.3 mmol/L [facility] Sodium [Moles/Vol] 137 mmol/L 135 - 144 mmol/L [facility] Urea nitrogen [Mass/Vol] 10 mg/dL 6 - 20 mg/dL [facility] Urea nitrogen/Creatinin e [Mass ratio] 13 mg/mg 9 - [address] [facility] Basic Metabolic Profon 02-14 Anion gap [Moles/Vol] 11 mmol/L Normal - [facility] Comment on above: Performed By: #### P T, BMP, TROPI, CDP #### [facility] [address] [place] [address] [place] [address] Apparel Stock Checker: Nghia Crawford MD BUN/CRE Ratio 13 Normal - [facility] Comment on above: Performed By: #### P T, BMP, TROPI, CDP #### [address] [place] [address] Apparel Stock Checker: Nghia Crawford MD Calcium [Mass/Vol] 9.0 mg/dL Normal 8.6-10.4 [facility] Comment on above: Performed By: #### P T, BMP, TROPI, CDP #### [facility] [address] [place] [address] Apparel Stock Checker: Nghia Crawford MD Chloride [Moles/Vol] 104 mmol/L Normal 98-107 [facility] Comment on above: Performed By: #### P T, BMP, TROPI, CDP #### [facility] [address] [place] [address] [place] [address] Apparel Stock Checker: Nghia Crawford MD CO2 [Moles/Vol] 22 mmol/L Normal 20- [facility] Comment on above: Performed By: #### P T, BMP, TROPI, CDP #### [facility] [address] [place] [address] [employer]arel Stock Checker: Nghia Crawford MD Creatinine [Mass/Vol] 0.8 mg/dL Normal 0.5-0.9 [facility] Comment on above: Performed By: #### P T, BMP, TROPI, CDP #### [facility] [address] [place] [address] [employer] Stock Checker: Nghia Crawford MD GFR/1.73 sq M.predicted among non-blacks MDRD (S/P/Bld) [Vol rate/Area] mL/min/{1.73_m2} Normal >60 [facility] Comment on above: Result Comment: These [...] #### P T, BMP, TROPI, CDP #### [address] [place] [address] [employer] Checker: Nghia Crawford MD Glucose [Mass/Vol] 106 mg/dL High 70-99 [facility] Comment on above: Performed By: #### P T, BMP, TROPI, CDP #### [facility] [address] [place] [address] [place] [address] [employer] Stock Checker: Nghia Crawford MD Potassium [Moles/Vol] 4.6 mmol/L Normal 3.7-5.3 [facility] Comment on above: Performed By: #### P T, BMP, TROPI, CDP #### [address] [place] [address] [employer] Stock Checker: Nghia Crawford MD Sodium [Moles/Vol] 137 mmol/L Normal 135-144 [facility] Comment on above: Performed By: #### P T, YOLANDA, TROPI, CDP #### [facility] [address] [place] [address] [employer] Stock Checker: Nghia Crawford MD Urea nitrogen [Mass/Vol] 10 mg/dL Normal 6-20 [facility] Comment on above: Performed By: #### P T, YOLANDA, KARLII, CDP #### [facility] [address] [place] [address] [employer] Checker: Nghia Crawford MD CBC with Auto Differentialon 02-14-2023 Basophils (Bld) [#/Vol] 0.06 10*3/uL [facility] Basophils/100 WBC (Bld) 1 % 0 - 2 % [facility] Eosinophils (Bld) [#/Vol] 0.13 10*3/uL [facility] Eosinophils/100 WBC (Bld) 2 % 1 - 4 % [facility] Erythrocyte distribution width (RBC) [Ratio] 18.7 % High 11.8 - 14.4 % [facility] Hematocrit (Bld) [Volume fraction] 33.0 % Low 36.3 - 47.1 % [facility] Hemoglobin (Bld) [Mass/Vol] 9.2 g/dL Low 11.9 - 15.1 g/dL [facility] Immature granulocytes (Bld) [#/Vol] 0.00 10*3/uL [facility] Immature granulocytes/100 WBC (Bld) 0 % 0 [facility] Interpretation and review of laboratory results Abnormal [facility] Lymphocytes/100 WBC (Bld) 21 % Low 24 - 43 % [facility] Lymphocytes/100 WBC (Bld) 1.32 % [facility] MCH (RBC) [Entitic mass] 19.5 pg Low 25.2 - 33.5 pg [facility] MCHC (RBC) [Mass/Vol] 27.9 g/dL Low 28.4 - 34.8 g/dL [facility] MCV (RBC) [Entitic vol] 69.9 fL Low 82.6 - 102.9 fL [facility] Monocytes/100 WBC (Bld) 10 % 3 - 12 % [facility] Monocytes/100 WBC (Bld) 0.63 % [facility] Morphology Lucho (Bld) [Interp] MICROCYTOSIS PRESENT [facility] Neutrophils/100 WBC (Bld) 66 % High 36 - 65 % [facility] Nucleated RBC/100 WBC (Bld) [Ratio] 0.3 % High 0.0 per 100 WBC [facility] Platelet mean volume (Bld) [Entitic vol] 10.8 fL 8.1 - 13.5 fL [facility] Platelets (Bld) [#/Vol] 219 10*3/uL [facility] RBC (Bld) [#/Vol] 4.72 10*6/uL 3.95 - 5.1 1 m/uL [facility] Segmented neutrophils/100 WBC (Bld) 4.16 % [facility] WBC other (Bld) [#/Vol] 6.[address] [facility] CBC with Diffon 02-14-2023 Abs. Basophil 0.06 k/uL Normal 0.0-0.2 [facility] Comment on above: Performed By: #### A F5MUT, AMTHFR, APTMUT #### [facility] [address] [place], [place] [id number] [employer] Checker: Rafa Andrea MD #### LEBRON BUSH CDP #### [facility] [address] [place] [address] [employer] Stock Checker: Nghia Crawford MD Abs.Imm.Granulocyt e 0.00 k/uL Normal 0.00-0.30 [facility] Comment on above: Performed By: #### A F5MUT, AMTHFR, APTMUT #### [facility] [address] [place], [place] [id number] [employer] Checker: Rafa Andrea MD #### LEBRON BUSH CDP #### [facility] [address] [place] [address] [place] [address] [employer] Stock Checker: Nghia Crawford MD Abs.Neutrophil (Seg) 4.16 k/uL Normal 1.50-8.10 [facility] Comment on above: Performed By: #### A F5MUT, AMTHFR, APTMUT #### [facility] [address] [place] [address] [employer] Stock Checker: Rafa Andrea MD #### LEBRON BUSH CDP #### [address] [place] [address] [employer] Stock Checker: Nghia Crawford MD Basophils/100 WBC (Bld) 1 % Normal 0-2 [facility] Comment on above: Performed By: #### A F5MUT, AMTHFR, APTMUT #### [facility] [address] [place], [place] [id number] [employer] Checker: Rafa Andrea MD #### LEBRON BUSH CDP #### [facility] [address] [place] [address] [place] [address] [employer] Stock Checker: Nghia Crawford MD Eosinophils (Bld) [#/Vol] 0.13 10*3/uL Normal 0.00-0.44 [facility] Comment on above: Performed By: #### A F5MUT, AMTHFR, APTMUT #### [facility] [address] [place], [place] [id number] [employer] Checker: Rafa Andrea MD #### LEBRON BUSH, CDP #### [facility] [address] [place] [address] [place] [address] [employer] Stock Checker: Nghia Crawford MD Eosinophils/100 WBC (Bld) 2 % Normal 1-4 [facility] Comment on above: Performed By: #### A F5MUT, AMTHFR, APTMUT #### [facility] [address] [place], [place] [id number] [employer] Checker: Rafa Andrea MD #### LEBRON BUSH, CDP #### [facility] [address] [place] [address] [employer] Stock Checker: Nghia Crawford MD Immature granulocytes/100 WBC (Bld) 0 % Normal 0 [facility] Comment on above: Performed By: #### A F5MUT, AMTHFR, APTMUT #### [facility] [address] [place] [address] [employer] Stock Checker: Rafa Andrea MD #### LEBRON BUSH, CDP #### [facility] [address] [place] [address] [employer] Stock Checker: Nghia Crawford MD Lymphocytes (Bld) [#/Vol] 1.32 10*3/uL Normal 1.10-3.70 [facility] Comment on above: Performed By: #### A F5MUT, AMTHFR, APTMUT #### [facility] [address] [place] [address] [employer] Stock Checker: Rafa Andrea MD #### LEBRON BUSH, CDP #### [facility] [address] [place] [address] [employer] Stock Checker: Nghia Crawford MD Lymphocytes/100 WBC (Bld) 21 % Low 24-43 [facility] Comment on above: Performed By: #### A F5MUT, AMTHFR, APTMUT #### [facility] [address] [place] [address] [employer] Stock Checker: Rafa Andrea MD #### LEBRON BUSH, CDP #### [facility] [address] [place] [address] [employer] Stock Checker: Nghia Crawford MD Monocytes (Bld) [#/Vol] 0.63 10*3/uL Normal 0.10-1.20 [facility] Comment on above: Performed By: #### A F5MUT, AMTHFR, APTMUT #### [facility] [address] [place] [address] [employer] Stock Checker: Rafa Andrea MD #### LEBRON BUSH CDP #### [facility] [address] [place] [address] [employer] Stock Checker: Nghia Crawford MD Monocytes/100 WBC (Bld) 10 % Normal 3-12 [facility] Comment on above: Performed By: #### A F5MUT, AMTHFR, APTMUT #### [facility] [address] [place] [address] [employer] Stock Checker: Rafa Andrea MD #### LEBRON BUSH CDP #### [facility] [address] [place] [address] [employer] Stock Checker: gNhia Crawford MD Morphology Lucho (Bld) [Interp] MICROCYTOSIS Normal [facility] Comment on above: Result Comment: PRES ENT Performed By: #### A F5MUT, AMTHFR, APTMUT #### [facility] [address] [place] [address] [employer] Stock Checker: Rafa Andrea MD #### LEBRON BUSH CDP #### [facility] [address] [place] [address] [employer] Stock Checker: Nghia Crawford MD Neutrophil (Seg) 66 % High 36-65 [facility] Comment on above: Performed By: #### A F5MUT, AMTHFR, APTMUT #### [facility] [address] [place] [address] [employer] Stock Checker: Rafa Andrea MD #### LEBRON BUSH CDP #### [facility] [address] [place] [address] [employer] Stock Checker: Nghia Crawford MD Erythrocyte distribution width (RBC) [Ratio] 18.7 % High 11.8-14.4 [facility] Comment on above: Performed By: #### A F5MUT, AMTHFR, APTMUT #### [facility] [address] [place] [address] [employer] Stock Checker: Rafa Andrea MD #### LEBRON BUSH CDP #### [facility] [address] [place] [address] [employer] Stock Checker: Nghia Crawford MD Hematocrit (Bld) [Volume fraction] 33.0 % Low 36.3-47.1 [facility] Comment on above: Performed By: #### A F5MUT, AMTHFR, APTMUT #### [facility] [address] [place], [place] [id number] [employer] Stock Checker: Rafa Andrea MD #### LEBRON BUSH CDP #### [facility] [address] [place] [address] [place] [address] [employer] Stock Checker: Nghia Crawford MD Hemoglobin (Bld) [Mass/Vol] 9.2 g/dL Low 11.9-15.1 [facility] Comment on above: Performed By: #### A F5MUT, AMTHFR, APTMUT #### [facility] [address] [place], [place] [id number] [employer] Stock Checker: Rafa Andrea MD #### LEBRON BUSH CDP #### [facility] [address] [place] [address] [employer] Stock Checker: Nghia Crawford MD MCH (RBC) [Entitic mass] 19.5 pg Low 25.2-33.5 [facility] Comment on above: Performed By: #### A F5MUT, AMTHFR, APTMUT #### [facility] [address], [place] [id number] [employer] Stock Checker: Rafa Andrea MD #### LEBRON BUSH, CDP #### [facility] [address] [place] [address] [employer] Stock Checker: Nghia Crawford MD MCHC (RBC) [Mass/Vol] 27.9 g/dL Low 28.4-34.8 [facility] Comment on above: Performed By: #### A F5MUT, AMTHFR, APTMUT #### [facility] [address] [place] [address] [employer] Stock Checker: Rafa Andrea MD #### LEBRON BUSH CDP #### [address] [place] [address] [employer] Stock Checker: Nghia Crawford MD MCV (RBC) [Entitic vol] 69.9 fL Low 82.6-102.9 [facility] Comment on above: Performed By: #### A F5MUT, AMTHFR, APTMUT #### [facility] [address], [place] [id number] [employer] Stock Checker: Rafa Andrea MD #### LEBRON BUSH CDP #### [address] [place] [address] [employer] Stock Checker: Nghia Crawford MD NRBC Automated 0.3 per 100 WBC High 0.0 [facility] Comment on above: Performed By: #### A F5REESE, AMTHFR, APTMUT #### [facility] [address], [place] [id number] [employer] Stock Checker: Rafa Andrea MD #### LEBRON BUSH CDP #### [facility] [address] [place] [address] [place] [address] [employer] Stock Checker: Nghia Crawford MD Platelet mean volume (Bld) [Entitic vol] 10.8 fL Normal 8.1-13.5 [facility] Comment on above: Performed By: #### A F5MUT, AMTHFR, APTMUT #### [facility] [address], [place] [id number] [employer] Stock Checker: Rafa Andrea MD #### LEBRON BUSH, CDP #### [address] [place] [id number] [employer] Stock Checker: Nghia Crawford MD Platelets (Bld) [#/Vol] 219 10*3/uL Normal 138-453 [facility] Comment on above: Performed By: #### A F5MUT, AMTHFR, APTMUT #### [facility] [address] [place] [address] [employer] Stock Checker: Rafa Andrea MD #### LEBRON BUSH, CDP #### [facility] [address] [place], [place] [id number] [employer] Stock Checker: Nghia Crawford MD RBC (Bld) [#/Vol] 4.72 10*6/uL Normal 3.95-5.11 [facility] Comment on above: Performed By: #### A F5MUT, AMTHFR, APTMUT #### [facility] [address] [place] [address] [employer] Stock Checker: Rafa Andrea MD #### LEBRON BUSH, CDP #### [facility] [address] [place], [place] [id number] [employer] Stock Checker: Nghia Crawford MD WBC (Bld) [#/Vol] 6.3 10*3/uL Normal 3.5-11.3 [facility] Comment on above: Performed By: #### A F5MUT, AMTHFR, APTMUT #### [facility] [address] [place] [address] [employer] Stock Checker: Rafa Andrea MD #### LEBRON BUSH, CDP #### [facility] [address] [place], [place] [id number] Apparel Stock Checker: Nghia Crawford MD CT CHEST W CONTRASTon [...] Isac Berry MD 02/14/23 Final result Normal [facility] Bilateral pulmonary emboli as described above Critical results were called by Dr. Isac Berry MD to DAKOTAH Chavez on 02/14/2023 at 18:10. [facility] RIS CONSOLIDATED EXAMINATION: CT OF THE CHEST WITH [...] in the thoracic spine.No acute osseous abnormalities. [facility] Isac Hough MD - 02/14/2023 EXAMINATION: CT OF THE [...] to DAKOTAH Chavez on 02/14/2023 at 18:10. [facility] Radiology Study observation (narrative) [facility] CT CHEST W CONTRASTOrdered B y: Isac Berry on 02-14-2023 [facility] Work Phone: PTon 02-14-2023 INR Coag (PPP) [Relative time] 1.0 {INR} Normal [facility] Comment on above: Result Comment: Therapeutic Range: Moderate Anticoagulant Intensity: INR = 2.0-3.0 High Anticoagulant Intensity: INR = 2.5-3.5 Performed By: #### P T, BMP, TROPI, CDP #### [facility] [address] [place] [address] [employer] Stock Checker: Nghia Crawford MD PT Coag (PPP) [Time] 12.9 s Normal 11.9-14.8 [facility] Comment on above: Performed By: #### P T, BMP, TROPI, CDP #### [facility] [address] [place] [address] [employer] Stock Checker: Nghia Crawford MD Protime-INRon 02-14-2023 INR Coag (PPP) [Relative time] 1.0 {INR} [facility] Comment on above: Therapeutic Range: Moderate Anticoagulant Intensity: INR = 2.0-3.0 High Anticoagulant Intensity: INR = 2.5-3.5 PT Coag (PPP) [Time] 12.[address] [facility] Troponinon 02-14-2023 Troponin I.cardiac High sensitivity method [Mass/Vol] ng/L 0 - 14 ng/L [facility] Comment on above: High Sensitivity Tro ponin values cannot be compared with other Troponin methodologies. [facility] Troponin, High Sens <6 Normal 0-14 [facility] Comment on above: Result Comment: High Sensitivity Troponin values cannot be compared with other Troponin methodologies. Performed By: #### A F5MUT, AMTHFR, APTMUT #### [facility] [address] [place] [address] [employer] Stock Checker: Rafa Andrea MD #### BUNLEBRON MARCANO CDP #### [facility] [address] [place] [address] [employer] Stock Checker: Nghia Crawford MD [facility] [employer] DIGITAL SCREEN BILA TERALon 11-11-2022 No evidence of malig clement. Advise annual screening mammography. BI-RADS 1 BIRADS: BIRADS - CATEGORY 1 Negative, no evidence of malignancy. Normal interval follow-up is recommended in 12 months. OVERALL ASSESSMENT - NEGATIVE A letter of notification will be sent to the patient regarding the results. [employer] recommends annual mammograms for women 40 years and older. [facility] EXAMINATION: SCREENING DIGITAL BILATERAL MAMMOGRAM WITH TOMOSYNTHESIS, [...] distortion or significant interval changes are noted. [facility] Tali Pearson MD - 11/11/2022 [...] to the patient regarding the results. [employer] recommends annual mammograms for women 40 years and older. [employer] Phone: [facility] [employer] DIGITAL SCREEN BILA TERALOrdered By: Tali Briggs on 11-11-2022 [employer] Phone: [facility] [employer] DIGITAL SCREEN BILA TERALon 11-10-2022 Radiology Study observation (narrative) [employer] Phone: [facility] [employer] DIGITAL SCREEN BILA TERALon 09-01-2021 No evidence of malig clement. Advise annual screening mammography. BI-RADS 1 BIRADS: BIRADS - CATEGORY 1 Negative, no evidence of malignancy. Normal interval follow-up is recommended in 12 months. OVERALL ASSESSMENT - NEGATIVE A letter of notification will be sent to the patient regarding the results. [employer] recommends annual mammograms for women 40 years and older. [facility] CONSOLIDATED EXAMINATION: SCREENING DIGITAL BILATERAL [...] distortion, or significant interval changes are noted. [facility] CONSOLIDATED [facility] [employer] DIGITAL SCREEN BILA TERALOrdered By: Tali Briggs on 09-01-2021 [facility] [employer] Work Phone: [facility] [employer]AN DIGITAL SCREEN BILA TERALon 08-31-2021 Radiology Study observation (narrative) [facility] Work Phone: Complete Blood Counton 07-26 Erythrocyte distribution width (RBC) [Ratio] 17.2 % High 11.0-15.0 [facility] [employer] Comment on above: Performed By: #### C MP, LIPD, VITD, CBC #### [facility] [address] [place], [place] [id number] Hematocrit (Bld) [Volume fraction] 37.7 % Normal 35.0-47.0 [facility] [employer] Comment on above: Performed By: #### C MP, LIPD, VITD, CBC #### [facility] [address] [place], [place] [id number] Hemoglobin (Bld) [Mass/Vol] 11.4 g/dL Low 11.6-15.5 [facility] [employer] Comment on above: Performed By: #### C MP, LIPD, VITD, CBC #### [facility] [address] [place], [place] [id number] MCH (RBC) [Entitic mass] 24.7 pg Low 27.0-33.0 [facility] Comment on above: Performed By: #### C MP, LIPD, VITD, CBC #### [facility] [address] [place], [place] [id number] MCHC (RBC) [Mass/Vol] 30.2 g/dL Low 32.0-36.0 [facility] Comment on above: Performed By: #### C MP, LIPD, VITD, CBC #### [facility] [address] [place], [place] [id number] MCV (RBC) [Entitic vol] 82 fL Normal 80-100 [facility] Comment on above: Performed By: #### C MP, LIPD, VITD, CBC #### [facility] [address] [place], [place] [id number] Platelet mean volume (Bld) [Entitic vol] 11.60 fL Normal 7.50-12.50 [facility] Comment on above: Performed By: #### C MP, LIPD, VITD, CBC #### [facility] [address] [place], [place] [id number] Platelets (Bld) [#/Vol] 268 10*3/uL Normal 140-400 [facility] Comment on above: Performed By: #### C MP, LIPD, VITD, CBC #### [facility] [address] [place], [place] [id number] RBC (Bld) [#/Vol] 4.61 10*6/uL Normal 3.90-5.20 [facility] Comment on above: Performed By: #### C MP, LIPD, VITD, CBC #### [facility] [address] [place], [place] [id number] RDW-SD 50.5 fL High 37.0-50.0 [facility] Comment on above: Performed By: #### C MP, LIPD, VITD, CBC #### [facility] [address] [place], [place] [id number] WBC (Bld) [#/Vol] 4.3 10*3/uL Normal 3.8-11.0 [facility] [place] [employer] Comment on above: Performed By: #### C MP, LIPD, VITD, CBC #### [facility] [address] [place], [place] [id number] Comprehensive Metabolic Pane jeanine 07-26-2021 Albumin [Mass/Vol] 4.7 g/dL Normal 3.6-5.1 [facility] [place] [employer] Comment on above: Performed By: #### C MP, LIPD, VITD, CBC #### [facility] [address] [place], [place] [id number] Albumin/Globulin [Mass ratio] 2.0 {ratio} Normal 1.0-2.5 [facility] Comment on above: Performed By: #### C MP, LIPD, VITD, CBC #### [facility] [address] [place], [place] [id number] ALP [Catalytic activity/Vol] 76 U/L Normal 35-119 [facility] Comment on above: Performed By: #### C MP, LIPD, VITD, CBC #### [facility] [address] [place], [place] [id number] ALT [Catalytic activity/Vol] 40 U/L High 6-33 [facility] Comment on above: Result Comment: 05/04 Female reference range changed. Performed By: #### C MP, LIPD, VITD, CBC #### [facility] [address] [place], [place] [id number] Anion gap [Moles/Vol] 20 mmol/L Normal 12-20 [facility] [employer] Comment on above: Result Comment: Effe ctive 06/09/2019 reference range changed. Performed By: #### C MP, LIPD, VITD, CBC #### [facility] [address] [place], [place] [id number] AST [Catalytic activity/Vol] 30 U/L Normal 9-34 [facility] Comment on above: Performed By: #### C MP, LIPD, VITD, CBC #### [facility] [address] [place], [place] [id number] Bilirubin [Mass/Vol] 0.60 mg/dL Normal 0.30-1.20 [facility] Comment on above: Performed By: #### C MP, LIPD, VITD, CBC #### [facility] [address] [place], [place] [id number] BUN/CREA 16 Ratio Normal 6-22 [facility] Comment on above: Performed By: #### C MP, LIPD, VITD, CBC #### [facility] [address] [place], [place] [id number] Calcium [Mass/Vol] 10.3 mg/dL High 8.6-10.2 [facility] Comment on above: Performed By: #### C MP, LIPD, VITD, CBC #### [facility] [address] [place], [place] [id number] Chloride [Moles/Vol] 104 mmol/L Normal 98-107 [facility] Comment on above: Performed By: #### C MP, LIPD, VITD, CBC #### [facility] [address] [place], [place] [id number] CO2 [Moles/Vol] 24 mmol/L Normal 20-31 [facility] Comment on above: Performed By: #### C MP, LIPD, VITD, CBC #### [facility] [address] [place], [place] [id number] Creatinine [Mass/Vol] 0.8 mg/dL Normal 0.6-1.4 [facility] Comment on above: Performed By: #### C MP, LIPD, VITD, CBC #### [facility] [address] [place], [place] [id number] eGFRAA 94 mL/min/1.73m2 Normal >60 [facility] Comment on above: Performed By: #### C MP, LIPD, VITD, CBC #### [facility] [address] [place], [place] [id number] eGFRNAA 78 mL/min/1.73m2 Normal >60 [facility] Comment on above: Performed By: #### C MP, LIPD, VITD, CBC #### [facility] [address] [place], [place] [id number] Globulin (S) [Mass/Vol] 2.3 g/dL Normal 1.9-3.7 [facility] Comment on above: Performed By: #### C MP, LIPD, VITD, CBC #### [facility] [address] [place], [place] [id number] Glucose [Mass/Vol] 125 mg/dL High 65-99 [facility]ist Comment on above: Result Comment: For FASTING Glucose --- ADA reference ranges: Normal 65-99 mg/dl Prediabetes 100-125 Diabetes >/= 126 Performed By: #### C MP, LIPD, VITD, CBC #### [facility] [address] [facility] [place] [id number] Potassium [Moles/Vol] 4.7 mmol/L Normal 3.5-5.5 [facility] Comment on above: Performed By: #### C MP, LIPD, VITD, CBC #### [facility] [address] [facility] [place] [id number] Protein [Mass/Vol] 7.0 g/dL Normal 6.1-8.1 [facility] Specialist Comment on above: Performed By: #### C MP, LIPD, VITD, CBC #### [facility] [address] [place], [place] [id number] Sodium [Moles/Vol] 143 mmol/L Normal 135-146 [facility] Comment on above: Performed By: #### C MP, LIPD, VITD, CBC #### [facility] [address] [facility] [place] [id number] Urea nitrogen [Mass/Vol] 13 mg/dL Normal 7-25 [facility] Comment on above: Performed By: #### C MP, LIPD, VITD, CBC #### [facility] [address] [facility] [place] [id number] Hemoglobin A1Con 07-26-2021 EAG 139.85 Normal [facility] Comment on above: Performed By: #### A 1C #### [facility] [address] [facility] [place] [id number] HbA1c (Bld) [Mass fraction] 6.5 % High 4.0-6.0 [facility] Comment on above: Performed By: #### A 1C #### [facility] [address] [place], [place] [id number] Lipid Panelon 07-26-2021 Cholesterol [Mass/Vol] 239 mg/dL High 125-200 [facility] Comment on above: Result Comment: Low risk < 200mg/dL Borderline risk 201-239 mg/dl High risk > or equal to 240 Performed By: #### C MP, LIPD, VITD, CBC #### [facility] [address] [place], [place] [id number] Cholesterol in HDL [Mass/Vol] 43 mg/dL Normal >40 [facility] Comment on above: Result Comment: High Cardiovascular Risk HDL <40 mg/dL Low Cardiovascular Risk HDL > or equal to 60 mg/dl Performed By: #### C MP, LIPD, VITD, CBC #### [facility] [address] [place], [place] [id number] Cholesterol in LDL [Mass/Vol] 173 mg/dL Normal [facility] Comment on above: Result Comment: LDL ATP III CLASSIFICATION LDL less than 100 mg/dl Optimal LDL 100-129 mg/dl Near or above optimal LDL 130-159 Borderline high LDL 160-189 High LDL greater than 189 mg/dl Very High Performed By: #### C MP, LIPD, VITD, CBC #### [facility] [address] [place], [place] [id number] Cholesterol in VLDL [Mass/Vol] 23 mg/dL Normal [facility] Comment on above: Performed By: #### C MP, LIPD, VITD, CBC #### [facility] [address] [place], [place] [id number] Cholesterol.total/ Cholesterol in HDL [Mass ratio] 6 {ratio} Normal [facility] Comment on above: Performed By: #### C MP, LIPD, VITD, CBC #### [facility] [address] [place], [place] [id number] Triglyceride [Mass/Vol] 114 mg/dL Normal 30-150 [facility] Comment on above: Result Comment: TRIG ATPIII CLASSIFICATIONS TRIG less than 150 mg/dl Normal TRIG 150-199 mg/dl Borderline High TRIG 200-500 mg/dl High TRIG greather than 500 mg/dl Very High Performed By: #### C MP, LIPD, VITD, CBC #### [facility] [address] [place], [place] [id number] Q - BOB SCREEN IFA W/RFL TIT ER IFAon 07-26-2021 BOB SCREEN, IFA Positive Abnormal NEGATIVE [facility] Comment on above: Order Comment: [facility] performed at: [place], [address] [facility], [address] [place] [address], [address] [place] [address], Beta Tester: Saul Fox MD [facility] Date/Time: [facility] [...] indicated. For additional information, please refer to http://education.[employer]/faq/MJH121 (This link is being provided for informational/ educational purposes only.) Performed By: #### % 78767, 3020X, %SBNOCULI, 249X #### [facility] [address] [place] [address] Q - BOB TITER/PATTERNon 07-06 BOB PATTERN Nuclear, Homogeneous Abnormal [facility] Comment on above: Order Comment: [facility] performed at: [place], [address] [facility], [address] [place] [address], [address] [place] [address], Beta Tester: Saul Fox MD [facility] Date/Time: [facility] Results Received Date/Time: [facility] Reported Date/Time: Result Comment: Homo geneous pattern is associated with systemic lupus erythematosus (SLE), drug-induced lupus and juvenile idiopathic arthritis. AC-1: Homogeneous International Consensus on BOB Patterns (https://doi.org/10.1515/xpea-1916-2801) Performed By: #### % 79651, 3020X, %SBNOCULI, 249X #### [facility] [address] [place] [address] BOB TITER 1:80 High [facility] Comment on above: Order Comment: [facility] performed at: [facility], [address] [facility], [address] [place] [address], [id number], Beta Tester: Saul Fox MD [facility] Date/Time: [facility] Results Received Date/Time: [facility] Reported Date/Time: Result Comment: A lo w level BOB titer may be present in pre-clinical autoimmune diseases and normal individuals. Reference Range <1:40 Negative 1:40-1:80 Low Antibody Level >1:80 Elevated Antibody Level Performed By: #### % 92632, 3020X, %SBNOCULI, 249X #### [facility] [address] [place] [address] Q - UR CULT REFLEXon 022 REFLEXIVE URINE CULTURE SEE NOTE Normal [facility] Comment on above: Order Comment: [facility] performed at: [facility], [address] [facility], [address] [place] [address], [place], [address], Beta Tester: Saul Fox MD [facility] Date/Time: [facility] Results Received Date/Time: [facility] Reported Date/Time: Result Comment: NO C ULTURE INDICATED Performed By: #### % 96251, 3020X, %SBNOCULI, 249X #### [facility] [address] [place] [address] Q - URINALYSIS,COMPLETE,WITH REFLEX TO CULTUREon 07-26-2021 Appearance (U) CLEAR Normal CLEAR [facility] Comment on above: Order Comment: [facility] performed at: [facility], [address] [facility], [address] [place] [address], [id number], Beta Tester: Saul Fox MD [facility] Date/Time: [facility] Results Received Date/Time: [facility] Reported Date/Time: Performed By: #### % 70632, 3020X, %SBNOCULI, 249X #### [facility] [address] [place] [address] BACTERIA NONE SEEN Normal NONE SEEN [facility] Comment on above: Order Comment: [facility] performed at: [place], [address] [place] , [address] [place] [address], [address] [place] [address], Beta Tester: Saul Fxo MD [facility] Date/Time: [facility] Results Received Date/Time: [facility] Reported Date/Time: Performed By: #### % 02596, 3020X, %SBNOCULI, 249X #### [facility] [address] [place] [address] Bilirubin Ql (U) Negative Normal NEGATIVE [facility] Comment on above: Order Comment: [facility] performed at: [place], [address] , [address] [place] [address], [address] [place] [address], Beta Tester: Saul Fox MD [facility] Date/Time: [facility] Results Received Date/Time: [facility] Reported Date/Time: Performed By: #### % 53083, 3020X, %SBNOCULI, 249X #### [facility] [address] [place] [address] Color (U) YELLOW Normal YELLOW [facility] Comment on above: Order Comment: [facility] performed at: [place], [address] , [address] [place] [address], [address] [place] [address], Beta Tester: Saul Fox MD [facility] Date/Time: [facility] Results Received Date/Time: [facility] Reported Date/Time: Performed By: #### % 40619, 3020X, %SBNOCULI, 249X #### [facility] [address] [place] [address] Glucose Ql (U) Negative Normal NEGATIVE [facility] Comment on above: Order Comment: [facility] performed at: [place], [address] [place] [address], [address] [place] [address], [address] [place] [address], Beta Tester: Saul Fox MD [facility] Date/Time: [facility] Results Received Date/Time: [facility] Reported Date/Time: Performed By: #### % 25678, 3020X, %SBNOCULI, 249X #### [facility] [address] [place] [address] HYALINE CAST NONE SEEN Normal NONE SEEN [facility] Comment on above: Order Comment: [facility] performed at: [place], [address] [place] [address], [address] [place] [address], [place], [address], Beta Tester: Saul Fox MD [facility] Date/Time: [facility] Results Received Date/Time: [facility] Reported Date/Time: Performed By: #### % 56100, 3020X, %SBNOCULI, 249X #### [facility] [address] [place] [address] Ketones Ql (U) Negative Normal NEGATIVE [facility] Comment on above: Order Comment: [facility] performed at: [place], [address] [place] [address], [address] [place] [address], [address] [place] [address], Beta Tester: Saul Fox MD [facility] Date/Time: [facility] Results Received Date/Time: [facility] Reported Date/Time: Performed By: #### % 80848, 3020X, %SBNOCULI, 249X #### [facility] [address] [place] [address] Leukocyte esterase Test strip Ql (U) Negative Normal NEGATIVE [facility] Comment on above: Order Comment: [facility] performed at: [place], [address] [place] [address], [address] [place] [address], [address] [place] [address], Beta Tester: Saul Fox MD [facility] Date/Time: [facility] Results Received Date/Time: [facility] Reported Date/Time: Performed By: #### % 46625, 3020X, %SBNOCULI, 249X #### [facility] [address] [place] [address] Nitrite Ql (U) Negative Normal NEGATIVE [facility] Comment on above: Order Comment: [facility] performed at: [place], [address] [facility], [address] [place] [address], [address] [place] [address], Beta Tester: Saul Fox MD [facility] Date/Time: [facility] Results Received Date/Time: [facility] Reported Date/Time: Performed By: #### % 53601, 3020X, %SBNOCULI, 249X #### [facility] [address] [place] [address] OCCULT BLOOD Negative Normal NEGATIVE [facility] Comment on above: Order Comment: [facility] performed at: [place], [address] [facility], [address] [place] [address], [address] [place] [address], Beta Tester: Saul Fox MD [facility] Date/Time: [facility] Results Received Date/Time: [facility] Reported Date/Time: Performed By: #### % 46327, 3020X, %SBNOCULI, 249X #### [facility] [address] [place] [address] pH (U) 7.5 [pH] Normal 5.0-8.0 [facility] Comment on above: Order Comment: [facility] performed at: [place], [address] , [address] [place] [address], [phone], Beta Tester: Saul Fox MD [facility] Date/Time: [facility] Results Received Date/Time: [facility] Reported Date/Time: Performed By: #### % 06849, 3020X, %SBNOCULI, 249X #### [facility] [address] [place] [address] Protein Ql (U) Negative Normal NEGATIVE [facility] Comment on above: Order Comment: [facility] performed at: [place], [address] , [address] [place] [address], [address] [place] [address], Beta Tester: Saul Fox MD [facility] Date/Time: [facility] Results Received Date/Time: [facility] Reported Date/Time: Performed By: #### % 16677, 3020X, %SBNOCULI, 249X #### [facility] [address] [place] [address] RBC NONE SEEN Normal < OR = 2 [facility] Comment on above: Order Comment: [facility] performed at: [facility], [address] , [address] [place] [address], [address] [place] [address], Beta Tester: Saul Fox MD [facility] Date/Time: [facility] Results Received Date/Time: [facility] Reported Date/Time: Performed By: #### % 01226, 3020X, %SBNOCULI, 249X #### [facility] [address] [place] [address] Specific gravity (U) [Rel density] 1.018 Normal 1.001-1.035 [facility] Comment on above: Order Comment: [facility] performed at: [facility], [address] , [address] [place] [address], [address] [place] [address], Beta Tester: Saul Fox MD [facility] Date/Time: [facility] Results Received Date/Time: [facility] Reported Date/Time: Performed By: #### % 38561, 3020X, %SBNOCULI, 249X #### [facility] [address] [place] [address] SQUAMOUS EPITHELIAL CELLS 0-5 Normal < OR = 5 [facility] Comment on above: Order Comment: [facility] performed at: [place], [address] [facility], [address] [place] [address], [address] [place] [address], Beta Tester: Saul Fox MD [facility] Date/Time: [facility] Results Received Date/Time: [facility] Reported Date/Time: Performed By: #### % 97076, 3020X, %SBNOCULI, 249X #### [facility] [address] [place] [address] WBC NONE SEEN Normal < OR = 5 [facility] Comment on above: Order Comment: [facility] performed at: [facility], [address] [facility], [address] [place] [address], [address] [place] [address], Beta Tester: Saul Fox MD [facility] Date/Time: [facility] Results Received Date/Time: [facility] Reported Date/Time: Performed By: #### % 79193, 3020X, %SBNOCULI, 249X #### [facility] [address] [place] [address] Vitamin D 25-OHon 07-26-2021 VIT D 25 OH 65 ng/ml Normal >29 [facility] Comment on above: Result Comment: Sil min D Status Deficiency <20 ng/mL Insufficiency 20-29 ng/mL Optimal 30-100 ng/mL Possible Toxicity >=150 ng/mL Performed By: #### C MP, LIPD, VITD, CBC #### [facility] [address] [place], [place] [id number] [facility] MEGHAN DIGITAL SCREEN SELF REFERRAL W OR [...] screening mammogram in 1 year is advised. [facility] SCREENI NG DIGITAL BILATERAL MAMMOGRAM WITH [...] distortion, or significant interval changes are noted. [facility], Km Incoming R adiant Results From [email or web address] - 06/21/2020 2:25 PM EST EXAMINATION: SCREENING [...] screening mammogram in 1 year is advised. [facility] BOB DIGITAL SCREEN W OR WO C AD BILATERALOrdered By: Kristina Wilkerson on 06-12-2019 Stable benign mammog debbi. BIRADS: BIRADS - CATEGORY 1 Negative, no evidence of malignancy. Normal interval follow-up is recommended in 12 months. OVERALL ASSESSMENT - NEGATIVE A letter of notification will be sent to the patient regarding the results. [employer] recommends annual mammograms for women 40 years and older. [employer] Phone: EXAMINATION: BILATER AL DIGITAL SCREENING MAMMOGRAM [...] seen. Tomosynthesis images demonstrate no suspicious abnormality. [employer] Phone: Jef, pn Incoming R adiant Results From [email or web address] - 06/12/2019 9:37 AM EST EXAMINATION: BILATERAL [...] to the patient regarding the results. [employer] recommends annual mammograms for women 40 years and older. [employer] Phone: US HEAD NECK SOFT TISSUE THY ROIDon 04-17-2019 Cholesterol in LDL [Mass/Vol] Thyroid gland is mildly heterogeneous and demonstrates small nodules, described above, for which no dedicated imaging follow-up is indicated following the imaging criteria alone, included below. RECOMMENDATIONS: ACR TI-RADS recommendations: TR4 (4-6 points): FNA if >= 1.5 cm; follow-up if 1.0-1.4 cm in 1, 2, 3, and 5 years [place] [place] EXAMINATION: THYROID ULTRASOUND 04/17/2019 COMPARISON: 03/11/2018 HISTORY: [...] in the imaged portions of the neck. [place], [place] Jef, Mhpn Incoming R adiant Results From [employer] (formerly [employer]) - 04/17/2019 10:32 PM EST EXAMINATION: THYROID [...] in 1, 2, 3, and 5 years [place], [place] Vital Signs Date Time Vital Sign Value Performing Clinician Facility 05-06-2024 09:03-0500 Body mass index (BMI) [Ratio] 29.86 kg/m2 [email or web address] Work Phone: [facility] 05-06-2024 09:03-0500 Body weight 89.09 kg Chato Myron DO Work Phone: [facility] 05-06-2024 09:03-0500 Diastolic blood pressure 70 mm[Hg] Chato Sanches DO Work Phone: [facility] 05-06-2024 09:03-0500 Systolic blood pressure 120 mm[Hg] Chato Myron DO Work Phone: [facility] 03-19-2024 14:02-0400 Body height 172.7 cm Amarilys Trujillo DO Work Phone: [facility] 03-19-2024 14:02-0400 Body mass index (BMI) [Ratio] 29.8 kg/m2 Amarilys Trujillo DO Work Phone: [facility] 03-19-2024 14:02-0400 Body weight 88.91 kg Amarilys Trujillo DO Work Phone: [facility] 03-19-2024 14:02-0400 Diastolic blood pressure 64 mm[Hg] Amarilys Trujillo DO Work Phone: [facility] 03-19-2024 14:02-0400 Heart rate 81 /min Amarilys Trujillo DO Work Phone: [facility] 03-19-2024 14:02-0400 SaO2% (BldA) [Mass fraction] 96 % Amarilys Trujillo DO Work Phone: [facility] 03-19-2024 14:02-0400 Systolic blood pressure 118 mm[Hg] Amarilys Trujillo DO Work Phone: [facility] 02-14-2023 17:57-0400 Diastolic blood pressure 80 mm[Hg] Kristina Rine [facility] Phone[facility] [employer] 02-14-2023 17:57-0400 Heart rate 83 /min Kristina Rine Work Phone: [facility] 02-14-2023 17:57-0400 Respiratory rate 20 /min Kristina Rine Work Phone: [facility] 02-14-2023 17:57-0400 SaO2% (BldA) [Mass fraction] 97 % Kristina Wilkerson Work Phone: [facility] [employer] 02-14-2023 17:57-0400 Systolic blood pressure 138 mm[Hg] Kristina Wilkerson Work Phone: [facility] 02-14-2023 17:33-0400 Body temperature 98.71 [degF] Kristina Wilkerson Work Phone: [facility] 02-14-2023 17:30-0400 Body mass index (BMI) [Ratio] 32.93 kg/m2 Kristina Wilkerson Work Phone: [facility] 02-14-2023 17:30-0400 Body weight 92.53 kg Kristina Wilkerson Work Phone: [facility] [employer] 06-11-2017 13:33-0500 BMI (Body Mass Index) 34.12 kg/m2 [place] Work Phone: 06-11-2017 13:33-0500 BP Diastolic 84 mm[Hg] [place] Work Phone: 06-11-2017 13:33-0500 BP Systolic 122 mm[Hg] [place] Work Phone: 06-11-2017 13:33-0500 Height 167.6 cm [facility] Work Phone: 06-11-2017 13:33-0500 Pulse (Heart Rate) 64 /min [place] Work Phone: 06-11-2017 13:33-0500 Pulse Oximetry 94 % [place] Work Phone: 06-11-2017 13:33-0500 Weight 95.89 kg [place] Work Phone: Encounters Encounter Date Encounter Type Care Provider Facility Start: 05-06-2024 End: 05-06-2024 Bamboo flowsheet Chato Myron DO Work Phone: [facility] Start: 05-06-2024 End: 05-06-2024 Bamboo flowsheet Chato Myron DO Work Phone: [facility] Start: 05-06-2024 End: 05-06-2024 Office outpatient visit 15 minutes Chato Myron DO Work Phone: [facility] Comment on above: Menorrhagia with reg ular cycle; Adenomyosis Start: 05-06-2024 End: 05-06-2024 ambulatory CHATO MYRON Not Available Start: 03-28-2024 End: 03-28-2024 Telephone encounter Kristina Wilkerson [employer] Work Phone: [facility] Start: 03-19-2024 End: 03-19-2024 Bamboo flowsheet Amarilyseirc Trujillo DO Work Phone: [facility] Start: 03-19-2024 End: 03-19-2024 Bamboo flowsheet Amarilyseric Trujillo DO Work Phone: [facility] Start: 03-19-2024 End: 03-19-2024 Patient encounter procedure Amarilys Ayoubett DO Work Phone: [facility] Comment on above: Screening for malign ant neoplasm of colon (Primary Dx) Start: 03-19-2024 End: 03-19-2024 ambulatory AMARILYS ADELE Not Available Start: 03-13-2024 End: 03-14-2024 Telephone encounter Kristina Wilkerson [employer] Work Phone: [facility] Comment on above: Results Start: 03-10-2024 End: 03-10-2024 Telephone encounter Lachelle Benton LPN Work Phone: [facility] Comment on above: UTI Start: 02-19-2024 End: 02-19-2024 Bamboo flowsheet Kristina Wilkerson [employer] Work Phone: [facility] Start: 02-19-2024 End: 02-19-2024 Bamboo flowsheet Kristina L Rine [employer]INEER Work Phone: [facility] Start: 02-19-2024 End: 02-19-2024 ambulatory KRISTINA L RINE Not Available Start: 01-03-2024 End: 01-03-2024 ambulatory MAI RUBIO Not Available Start: 12-21-2023 End: 12-21-2023 ambulatory Chato Santoso [facility] Work Phone: Start: 12-21-2023 End: 12-21-2023 Departed Referred DO Chato Sanches Work Phone: [facility] Start: 12-04-2023 End: 12-06-2023 ambulatory [facility]STINA L RINE [facility] Start: 11-20-2023 End: 11-20-2023 ambulatory KRISTINA L RINE Not Available Start: 10-23-2023 End: 10-24-2023 ambulatory Yonathan Dietrich MD Facility:[facility] Start: 10-16-2023 End: 10-17-2023 ambulatory Yonathan Dietrich MD Facility:[facility] Start: 10-16-2023 End: 10-16-2023 ambulatory KRISTINA L RINE Not Available Start: 10-12-2023 End: 10-13-2023 ambulatory CHATO R MYRON [facility] Start: 09-25-2023 End: 09-25-2023 ambulatory CHATO MYRON Not Available Start: 08-28-2023 End: 08-28-2023 ambulatory CHATO MYRON Not Available Start: 08-21-2023 End: 08-21-2023 ambulatory KRISTINA L RINE Not Available Start: 08-03-2023 End: 08-03-2023 ambulatory CRISTINA E FRUPARK Not Available Start: 07-24-2023 End: 07-26-2023 ambulatory [facility]STINA L RINE [facility] Start: 05-24-2023 End: 05-25-2023 ambulatory Yonathan Dietrich MD Facility:[facility] Start: 05-15-2023 End: 05-15-2023 ambulatory KRISTINA L RINE Not Available Start: 02-14-2023 End: 02-14-2023 Emergency department patient visit KRISTINA WILKERSON [facility] ED Comment on above: Bilateral pulmonary embolism (HCC) (Primary Dx) Start: 02-14-2023 End: 02-16-2023 Subsequent hospital visit by physician [facility] Cat Scan Room [facility] CT Scan Comment on above: Positive D-dimer; Dyspnea, unspecified type Start: 02-14-2023 End: 02-16-2023 ambulatory KRISTINA WILKERSON [facility] Start: 11-10-2022 End: 11-12-2022 Subsequent hospital visit by physician [facility] Mammography Room [facility]amm[facility] Comment on above: Screening mammogram for breast cancer Start: 08-31-2021 End: 09-02-2021 Subsequent hospital visit by physician [facility] Mammography Room [facility]amm[facility] Comment on above: Screening mammogram for breast cancer Start: 06-21-2020 End: 06-23-2020 Subsequent hospital visit by physician [facility] Mammography Room [facility] Comment on above: Breast cancer screen ing by mammogram Start: 06-11-2019 End: 06-13-2019 Subsequent hospital visit by physician [facility] Mammography Comment on above: Screening breast exa mination Start: 04-17-2019 End: 04-19-2019 Subsequent hospital visit by physician [facility] Ultrasound Room 2 [facility] Ultrasound Comment on above: Nontoxic uninodular goiter Start: 06-11-2017 End: 06-11-2017 Ambulatory [facility] Start: 06-11-2017 Office/outpatient visit, new, level 3 [facility] Work Phone: [facility] Rheumatology Procedures Date Procedure Procedure Detail Performing Clinician Start: 12-04-2023 Mammography Kristina More [employer]INEER Work Phone: Start: 02-14-2023 Basic metabolic pane l calcium total Jojo Terry PA-C Work Phone: Start: 02-14-2023 Ct thorax w/contrast material Cristina Ennis Work Phone: Start: 11-10-2022 Screening mammograph y bi 2-view breast inc cad Kristina Wilkerson Work Phone: Start: 10-23-2022 Microscopic observat ion [Identifier] in Cervix by Cyto stain Kristina Wilkerson NP Work Phone: Start: 08-31-2021 Screening mammograph y bi 2-view breast inc cad Kristina Wilkerson Work Phone: Start: 06-21-2020 Screening mammograph y bi 2-view breast inc cad Kristina Wilkerson Work Phone: Start: 06-11-2019 Screening digital br east tomosynthesis bi Kristina L More Work Phone: Start: 04-17-2019 soft tissue head & neck real time imge docm Kristina Wilkerson Work Phone: Plan of Treatment Date Care Activity Detail Author Start: 10-24-2027 Screening for malign ant neoplasm of cervix [facility] Start: 06-26-2027 DTaP/Tdap/Td vaccine (2 - Td or Tdap) DTaP/Tdap/Td vaccine (2 - Td or Tdap) [facility] Start: 06-26-2027 DTaP/Tdap/Td vaccine (2 - Td) DTaP/Tdap/Td vaccine (2 - Td) [facility] [place] Start: 10-23-2025 Screening for malign ant neoplasm of cervix Pap Smear [facility] Start: 12-03-2024 Screening for malign ant neoplasm of breast Mammogram [facility] Start: 07-08-2024 End: 07-08-2024 Patient encounter procedure 07/08/2024 8:30 AM EST Office Visit [facility] [address] [place] [address] Kristina Wilkerson NP [address] [place] [address] [facility] Start: 06-11-2024 Hemoglobin A1c measurement Diabetes: Hemoglobin A1C [facility] Start: 06-10-2024 End: 06-10-2024 Patient encounter procedure 06/10/2024 11:10 AM EST Consult [facility] [address] [place] [id number] Chato Sanches, DO [address] [place] [address] [facility] Start: 05-06-2024 End: 05-06-2024 Patient encounter procedure 05/06/2024 8:40 AM EST Office Visit [facility] [address] [place] [id number] Chato Sanches, DO [address] [place] [place], [facility]11 Arrived [facility] Comment on above: Arrived Start: 03-19-2024 End: 03-19-2024 Patient encounter procedure [facility] Comment on above: Arrived Start: 03-05-2024 Hemoglobin A1c measurement Diabetes: Hemoglobin A1C [facility] Start: 02-15-2024 Urine screening for protein Diabetes: Urine Protein Screening [facility] Start: 02-03-2024 Influenza vaccination Influenza Vacc ine (#1) [facility] Start: 02-28-2023 End: 02-28-2023 Patient encounter procedure 02/28/2023 3:15 PM EDT Office Visit [facility] [place] [phone] Jovi Lujan MD [address] [place] [address] F/U bilateral PE positive d-dimer [facility] Comment on above: F/U bilateral PE pos itive d-dimer Start: 01-02-2023 Influenza vaccination Flu vaccine (# 1) JORJE BROWN [facility] Start: 12-07-2022 End: 12-07-2022 Patient encounter procedure 12/07/2022 Office [place] [id number] [place] [address] [facility] Start: 06-02-2021 COVID-19 Vaccine (2 - Pfizer series) COVID-19 Vaccine (2 - Pfizer series) [facility] Start: 04-28-2021 COVID-19 Vaccine (2 - Pfizer 3-dose series) COVID-19 Vaccine (2 - Pfizer 3-dose series) [facility] Start: 2021 Screening for malign ant neoplasm of colon [facility] Start: 02-03-2020 Influenza vaccination Flu vaccine (# 1) [facility] [place] Start: 06-11-2019 End: 06-11-2019 Appointment 06/11/2019 Appointment Radiology [facility] Start: 02-02-2019 Influenza vaccination Flu vaccine (# 1) [facility] [place] Start: 2016 Lipid panel [facility] Start: 2016 Lipid screen Lipid screen [place], [place] Start: 2011 Diabetes screen Diabetes screen [facility] Start: 2006 Screening for malign ant neoplasm of cervix [facility] Start: 1997 Cervical cancer screen Cervical canc er screen [facility], [place] Start: 1997 Screening for malign ant neoplasm of cervix [facility] Start: 1995 Urine screening for protein Diabetes: Urine Protein Screening [facility] Start: 1994 Hepatitis C screening Hepatitis C [facility] Start: 1991 HIV screen HIV screen [place], [place] Start: 1991 HIV screening HIV screen [facility] Start: 1988 Depression Screen Depression Screen [facility] Start: 1986 Glaucoma screening Diabetes: R etinopathy Screening [facility] Start: 1976 Hepatitis B vaccine (1 of 3 - 3-dose series) Hepatitis B vaccine (1 of 3 - 3-dose series) [facility] Start: 1976 Hepatitis C screening Hepatitis C [facility] Start: 1976 Screening for malign ant neoplasm of cervix PAP SMEAR [facility] Work Phone: Start: 1976 Screening for malign ant neoplasm of colon [facility] Start: 1976 Tetanus vaccination TETANUS EVERY 10 YR [facility] Work Phone: End: 06-11-2018 RENAN Screen (SSA/B,SM,HISTOLOGY TECHNICIAN,SCL70,JO1 ) RENAN Screen (SSA/B,SM,HISTOLOGY TECHNICIAN,SCL70,DEMARCO 1) Routine Positive BOB (antinuclear antibody) 1 Occurrences starting 06/11/2017 until 06/11/2018 [facility] Work Phone: End: 06-11-2018 Glucose Glucose Routine Numbness 1 Occurrences starting 06/11/2017 until 06/11/2018 [facility] Work Phone: Immunizations Immunization Date Immunization Notes Care Provider Saira putnam 03-07-2024 influenza virus vaccine, unspecified formulation Amarilys Trujillo DO Work Phone: [facility] 03-07-2023 influenza, injectabl e, quadrivalent, contains preservative Kristina Rine SHEET METAL ENGINEER Work Phone: [facility] 03-07-2023 influenza virus vaccine, unspecified formulation Kristina Rine SHEET METAL ENGINEER Work Phone: [facility] 03-24-2022 influenza, injectabl e, quadrivalent, preservative free Kristina Rine SHEET METAL ENGINEER Work Phone: [facility] 03-14-2022 influenza, injectabl e, quadrivalent, preservative free Kristina Rine SHEET METAL ENGINEER Work Phone: [facility] 04-02-2021 influenza, injectabl e, quadrivalent, preservative free Kristina Rine SHEET METAL ENGINEER Work Phone: [facility] 03-13-2020 influenza, injectabl e, quadrivalent, preservative free Kristina Rine SHEET METAL ENGINEER Work Phone: [facility] 04-09-2019 influenza, injectabl e, quadrivalent, preservative free Kristina Rine SHEET METAL ENGINEER Work Phone: [facility] 02-07-2018 influenza, injectabl e, quadrivalent, contains preservative Kristina Rine SHEET METAL ENGINEER Work Phone: [facility] 04-05-2017 influenza, seasonal, intradermal, preservative free Melo Sood [facility] Work Phone: 11-14-2016 seasonal influenza, intradermal, preservative free Kristina Rine SHEET METAL ENGINEER Work Phone: [facility] 04-03-2015 influenza, injectabl e, quadrivalent, preservative free Kristina Rine SHEET METAL ENGINEER Work Phone: [facility] 03-16-2014 influenza virus vaccine, split virus (incl. purified surface antigen) Kristina Rine SHEET METAL ENGINEER Work Phone: [facility] Payers Date Payer Category Payer Self-pay 2018 [facility] BCBS [id number] 2018 Unknown 2014 Unknown [place] P PO xxxxxxxxxxxx 2014-Present [id number] [place] [id number] xxxxxxxxxxxx [id number] 2014 Unknown [id number] [id number] 1976 Unknown [id number] 2.16.840.1.450822.3.579.2. 1286 1976 Unknown [id number] 2.16.840.1.939979.3.579.2. 196 1976 Unknown [id number] 2.16.840.1.944950.3.579.2. 196 1976 Unknown [id number] 2.16.840.1.817538.3.579.2. 196 1976 Unknown [id number] 2.16.840.1.510852.3.579.2. 196 1976 Unknown [id number] 2.16.840.1.481918.3.579.2. 173 1976 Unknown [id number] 2.16.840.1.367688.3.579.2. 173 1976 Unknown [id number] 2.16.840.1.398847.3.579.2. 173 1976 Unknown [id number] 2.16.840.1.529518.3.579.2. 173 1976 Unknown [id number] 2.16.840.1.189197.3.579.2. 173 1976 Unknown [id number] 2.16.840.1.297250.3.579.2. 173 1976 Unknown [id number] 2.16.840.1.493348.3.579.2. 173 1976 Unknown [id number] 2.16.840.1.310264.3.579.2. 173 1976 Unknown [id number] 2.16.840.1.225941.3.579.2. 1259 1976 Unknown [id number] 2.16.840.1.219872.3.579.2. 1259 1976 Unknown [id number] 2.16.840.1.715600.3.579.2. 1259 1976 Unknown [id number] 2.16.840.1.854780.3.579.2. 1259 1976 Unknown [id number] 2.16.840.1.995416.3.579.2. 1259 1976 Unknown [id number] 2.16.840.1.417100.3.579.2. 1259 1976 Unknown [id number] 2.16.840.1.588245.3.579.2. 9 1976 Unknown [id number] 2.16.840.1.552519.3.579.2. 9 1976 Unknown [id number] 2.16.840.1.936037.3.579.2. 9 1976 Unknown [id number] 2.16.840.1.261186.3.579.2. 9 1976 Unknown [id number] 2.16.840.1.951316.3.579.2. 1258 Unknown [id number] 2.16.840.1.907025.3.579.2. 531 Social History Date Type Detail Facility Start: 06-11-2017 End: 11-21-2022 Tobacco smoking status AZIS Never smoker [facility] Work Phone: Start: 1975 Sex Assigned At Not on file [facility] Work Phone: Exposure to SARS-CoV -2 (event) Not sure [facility] [place], [place] Tobacco smoking stat [facility] Tobacco smoking consumption unknown [facility] Work Phone: Start: 09-21-2012 End: 12-12-2022 Gender identity Not on file [facility] Start: 09-21-2012 End: 12-12-2022 History of Social function [facility] Start: 1975 Sex Assigned At Female F [facility] Start: 11-21-2022 Tobacco use and exposure Smokeless tobacco non-user [facility] Start: 01-03-2024 End: 02-19-2024 Alcoholic beverage intake Current drinker of alcohol (finding) [facility] Within the last year , have you been afraid of your partner or ex-partner? No [facility] In a typical week, h ow many times do you talk on the telephone with family, friends, or neighbors? Patient declined [facility] Are you now , , , , never or living with a partner? [facility] (I/We) worried wheth er (my/our) food would run out before (I/we) got money to buy more. Never true [facility] Start: 12-31-2022 Alcohol Comment Alcohol: 1 or 2 drinks on a typical day/monthly or less Caffeine: 2-3 cups/day [facility] Start: 03-19-2024 Alcoholic beverage intake Ex-drinker (finding) [facility] Clinical Notes 02-14-2023 to 05-06-2024 Baylee Ireland, RAMON - 05/06/2024 8:40 AM ESTTelephone Encounter - Kristina Wilkerson, MEME - 03/28/2024 11:06 AM EDTTelephone Encounter - Kristina Wilkerson, MEME - 03/28/2024 11:06 AM EDTDischarge Instructions Note Date & Type Note Facility 05-06-2024 History of Present illness Narrative Reason for Appointment: Patient ID: Mai Lyons is a 49 y.o. female who presents for Menorrhagia and Abdominal Cramping Patient presents today for Acute Visit. and Consult appointment. MEDICATIONS Current Outpatient Medications Medication Instructions atorvastatin (LIPITOR) 10 mg, Oral, Daily bisoprolol-hydroCHLOROthiazide (Ziac) 5-6.25 MG tablet 1 tablet, Oral, Daily calcium carbonate (OS-KELSEY) 500 mg, Every 24 hours Continuous Glucose Sensor (Dexcom G7 Sensor) misc 1 Units, Does not apply, Every 14 days empagliflozin (JARDIANCE) 10 mg, Oral, Daily fluticasone (Flonase) 50 MCG/ACT nasal spray 1-2 sprays, Each Nostril, Daily, Shake gently. Before first use, prime pump. After use, clean tip and replace cap. levothyroxine (Synthroid) 125 MCG tablet TAKE 1 TABLET DAILY IN THE MORNING ON AN EMPTY STOMACH lisinopril 2.5 mg, Oral, Daily medroxyPROGESTERone (PROVERA) 10 mg, Oral, Daily, Take 1 tablet by mouth daily for 7 days beginning on day 16 of the menstrual cycle. metFORMIN XR (GLUCOPHAGE-XR) 500 mg, Oral, 2 times daily pantoprazole (PROTONIX) 40 mg, Oral, Daily before breakfast Probiotic Product (Probiotic Daily) capsule Sodium Fluoride 5000 PPM 1.1 % paste 2 times daily Vitamin D 125 mcg, Daily ALLERGIES No Known Allergies PROBLEMS Active Ambulatory Problems Diagnosis Date Noted Arthritis 12/11/2022 Elevated cholesterol ([facility]) 12/11/2022 Elevated glucose 12/11/2022 Gastroesophageal reflux disease 12/11/2022 Primary hypertension ([facility]) 12/11/2022 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 ([facility]) 12/11/2022 Thyroiditis ([facility]) 12/11/2022 Iron deficiency anemia due to chronic blood loss 12/11/2022 Excessive and frequent menstruation 12/11/2022 Menorrhagia 12/11/2022 Obesity, unspecified 12/11/2022 Right carpal tunnel syndrome 12/11/2022 Sacroiliitis ([facility]) 12/11/2022 Seasonal allergies 12/11/2022 Vitamin D deficiency 12/11/2022 Microcytic anemia 02/28/2023 Resolved Ambulatory Problems Diagnosis Date Noted Abnormal vaginal bleeding 12/11/2022 Right arm numbness 12/11/2022 Bilateral pulmonary embolism ([facility]) 02/28/2023 Pulmonary embolism with acute cor pulmonale ([facility]) 03/19/2023 Right femoral vein DVT ([facility]) 03/19/2023 Past Medical History: Diagnosis Date Anemia Diabetes mellitus ([facility]) 10/16/2023 GERD (gastroesophageal reflux disease) History of migraine headaches Hypertension ([facility]) Thyroid dysfunction ([facility]) HISTORY PAST MEDICAL HISTORY SOCIAL HISTORY Past Medical History: Diagnosis Date Anemia Diabetes mellitus ([facility]) 10/16/2023 GERD (gastroesophageal reflux disease) History of migraine headaches Hypertension ([facility]) Right femoral vein DVT ([facility]) 03/19/2023 Thyroid dysfunction ([facility]) Social History Tobacco Use Smoking status: Never Smokeless tobacco: Never Vaping Use Vaping status: Never Used Substance Use Topics Alcohol use: Not Currently Comment: Alcohol: 1 or 2 drinks on a typical day/monthly or less Caffeine: 2-3 cups/day Drug use: Never FAMILY HISTORY Family History Problem Relation Name Age of Onset Hypertension Mother Mom Arthritis Mother Mom Hypertension Father Dad Diabetes Father Dad Heart disease Father Dad Arthritis Father Dad Hearing loss Father Dad Autoimmune disease Sister told RA Hypertension Maternal Grandmother Pancreatic cancer. cervical cancer Stroke Maternal Grandmother Pancreatic cancer. cervical cancer Arthritis Maternal Grandmother Pancreatic cancer. cervical cancer Cancer Maternal Grandmother Pancreatic cancer. cervical cancer Heart disease Maternal Grandfather Grandma Hypertension Paternal Grandmother Family Thyroid disease Paternal Grandmother Family Heart disease Paternal Grandfather Grandpa Arthritis Sister Sister Diabetes Sister Sister Diabetes Sister Sister Nelda Hypertension Sister Sister Nelda Heart disease Sister Heart attack at age 42 SURGICAL HISTORY Past Surgical History: Procedure Laterality Date SECTION, LOW TRANSVERSE PAP SMEAR 2019 REVIEW OF SYSTEMS Review of Systems: Review of Systems Constitutional: Negative. HENT: Negative. Eyes: Negative. Respiratory: Negative. Cardiovascular: Negative. Gastrointestinal: Negative. Genitourinary: Positive for menstrual problem. Musculoskeletal: Negative. Skin: Negative. Neurological: Negative. All other systems reviewed and are negative. Hematological: Negative. Endocrine: Negative. Allergic/Immunologic: Negative. OBJECTIVE Objective: Physical Exam Constitutional: Appearance: Normal appearance. She is well-developed. Cardiovascular: Rate and Rhythm: Normal rate and regular rhythm. Pulmonary: Effort: Pulmonary effort is normal. Breath sounds: Normal breath sounds. Abdominal: General: Bowel sounds are normal. There is no distension. Palpations: Abdomen is soft. Tenderness: There is no abdominal tenderness. There is no guarding or rebound. Musculoskeletal: General: No swelling. Normal range of motion. Right lower leg: No edema. Left lower leg: No edema. Neurological: Mental Status: She is alert and oriented to person, place, and time. Skin: General: Skin is warm and dry. Psychiatric: Mood and Affect: Mood normal. Behavior: Behavior normal. Vitals and nursing note reviewed. Exam conducted with a video tape transferrer present. Vitals: Estimated body mass index is 29.86 kg/m as calculated from the following: Height as of 03/19/24: 5' 8 . Weight as of this encounter: 196 lb 6.4 oz. BP: 120/70 Patient's last menstrual period was 04/04/2024. ASSESSMENT & PLAN ICD-10-CM 1. Menorrhagia with regular cycle N92.0 medroxyPROGESTERone (Provera) 10 MG tablet 2. Adenomyosis N80.03 Pt presents with complaints of menorrhagia still even after ablation and tubal in December. Postop- diagnosis is adenomyosis. Pt desires surgical management, pt to be scheduled for lap hysterectomy. Pt to return for preop exam. Discussed adding slynd or provera for cycle. Rx for proveraf axed to pharmacy Documented by Baylee Ireland LPN on behalf of: Chato Sanches DO documented in this encounter [facility] 03-28-2024 Telephone encounter Note Beni sent see emessage with vag yeast c/o [facility] 03-28-2024 Miscellaneous Notes Beni sent see emessage with vag yeast c/o documented in this encounter [facility] 03-19-2024 History of Present illness Narrative General Surgery H&P Mai Lyons 1975 Mai Lyons is a 48 y.o. female presents with chief complaint of Colonoscopy (Pt presents today for a colonoscopy consult. Pt denies having a colonoscopy before. Pt denies abdominal pain. Pt denies rectal bleeding. Pt denies changes in bowel movements. Pt denies a family history of colon cancer that they know of. Pt denies any concern today. Denies hx of unplanned weight loss. Denies fevers, chills, or sweats. Denies nausea or vomiting. Last colonoscopy was never. SUBJECTIVE: MEDICATIONS: ALLERGIES Current Outpatient Medications Medication Instructions atorvastatin (LIPITOR) 10 mg, Oral, Daily bisacodyl (DULCOLAX) 5 mg, Oral, Once, Do not crush, chew, or split. Take as detailed on clinic hand out for colonoscopy prep bisoprolol-hydroCHLOROthiazide (Ziac) 5-6.25 MG tablet 1 tablet, Oral, Daily calcium carbonate (OS-KELSEY) 500 mg, Every 24 hours Continuous Glucose Sensor (Dexcom G7 Sensor) misc 1 Units, Does not apply, Every 14 days empagliflozin (JARDIANCE) 10 mg, Oral, Daily fluticasone (Flonase) 50 MCG/ACT nasal spray 1-2 sprays, Each Nostril, Daily, Shake gently. Before first use, prime pump. After use, clean tip and replace cap. levothyroxine (Synthroid) 125 MCG tablet TAKE 1 TABLET DAILY IN THE MORNING ON AN EMPTY STOMACH lisinopril 2.5 mg, Oral, Daily metFORMIN XR (GLUCOPHAGE-XR) 500 mg, Oral, 2 times daily pantoprazole (PROTONIX) 40 mg, Oral, Daily before breakfast polyethylene glycol (PEG) 3350 (GLYCOLAX) 238 g, Oral, Once, Take as detailed from clinic hand out for colonoscopy prep Probiotic Product (Probiotic Daily) capsule Sodium Fluoride 5000 PPM 1.1 % paste 2 times daily triamcinolone (Kenalog) 0.1 % cream Topical, 2 times daily PRN Vitamin D 125 mcg, Daily No Known Allergies PAST MEDICAL HISTORY: SOCIAL HISTORY SURGICAL HISTORY: Past Medical History: Diagnosis Date Anemia Diabetes mellitus ([facility]) 10/16/2023 GERD (gastroesophageal reflux disease) History of migraine headaches Hypertension ([facility]) Right femoral vein DVT ([facility]) 03/19/2023 Thyroid dysfunction ([facility]) Social History Tobacco Use Smoking status: Never Smokeless tobacco: Never Vaping Use Vaping status: Never Used Substance Use Topics Alcohol use: Not Currently Comment: Alcohol: 1 or 2 drinks on a typical day/monthly or less Caffeine: 2-3 cups/day Drug use: Never Past Surgical History: Procedure Laterality Date SECTION, LOW TRANSVERSE PAP SMEAR 2019 Family History Problem Relation Name Age of Onset Hypertension Mother Mom Arthritis Mother Mom Hypertension Father Dad Diabetes Father Dad Heart disease Father Dad Arthritis Father Dad Hearing loss Father Dad Autoimmune disease Sister told RA Hypertension Maternal Grandmother Pancreatic cancer. cervical cancer Stroke Maternal Grandmother Pancreatic cancer. cervical cancer Arthritis Maternal Grandmother Pancreatic cancer. cervical cancer Cancer Maternal Grandmother Pancreatic cancer. cervical cancer Heart disease Maternal Grandfather Grandma Hypertension Paternal Grandmother Family Thyroid disease Paternal Grandmother Family Heart disease Paternal Grandfather Grandpa Arthritis Sister Sister Diabetes Sister Sister Diabetes Sister Sister Nelda Hypertension Sister Sister Nelda Heart disease Sister Heart attack at age 42 No Known Allergies Past Surgical History: Procedure Laterality Date SECTION, LOW TRANSVERSE PAP SMEAR 2019 Tobacco Use: Low Risk (03/19/2024) Patient History Smoking Tobacco Use: Never Smokeless Tobacco Use: Never Passive Exposure: Not on file Alcohol Use: Patient Declined (12/12/2022) AUDIT-C Frequency of Alcohol Consumption: Patient declined Average Number of Drinks: Patient declined Frequency of Binge Drinking: Patient declined Depression: Not at risk (11/20/2023) PHQ-2 PHQ-2 Score: 0 Physical Activity: Patient Declined (12/12/2022) Exercise Vital Sign Days of Exercise per Week: Patient declined Minutes of Exercise per Session: Patient declined REVIEW OF SYMPTOMS: Review of Systems All other systems reviewed and are negative. 10 systems were reviewed. Positives noted above. Remainder are negative per CMS guidelines. OBJECTIVE: Visit Vitals BP 118/64 Pulse 81 Ht 5' 8 Wt 196 lb SpO2 96% BMI 29.80 kg/m OB Status Ablation Smoking Status Never BSA 2.07 m Physical Exam Vitals reviewed. General: AAOx3, NAD Head: atraumatic normocephalic Neck: trachea midline. No masses or lymphadenopathy Heart: Regular rate and rhythm Lungs: equal chest rise and fall, non labored breathing Abdomen: soft, nontender, and non distended Ext: motor 5/5 all extremities with no gross deformities Psych: alert and oriented, behavior appropriate ASSESSMENT AND PLAN: Assessment/Plan Diagnoses and all orders for this visit: Screening for malignant neoplasm of colon - bisacodyl (Dulcolax) 5 MG EC tablet; Take 1 tablet (5 mg) by mouth 1 time for 1 dose Do not crush, chew, or split. Take as detailed on clinic hand out for colonoscopy prep - polyethylene glycol, PEG, 3350 (Glycolax) 17 GM/SCOOP powder; Take 238 g by mouth 1 (one) time for 1 dose Take as detailed from clinic hand out for colonoscopy prep Plan: Patient is average risk for colon cancer. Colonoscopy can be scheduled electively. Patient informed of the risks of procedure which include but not limited to bleeding, perforation, and risks of anesthesia. Patient understood risks and signed informed consent for the procedure under monitored anesthesia care. Handout for bowel prep provided in clinic. Patient was informed of the need for a ride home from the hospital and the need for someone to be with them for the following 24 hrs post procedure. Thank you, Eduin Trujillo DO documented in this encounter [facility] 03-14-2024 Telephone encounter Note Noted and agree [facility] 03-14-2024 Miscellaneous Notes Noted and agree Spoke with Mai and she is due again for her period next week, she said if it comes and is heavy as it was this last month she was going to call environmental coordinator to see if she needs to get back on the provera, or something else. I left it in her hands to call us and let us know . I would finish the augmentin, may need to consider seeing environmental coordinator, likely return of period is contributing to the fullness in pelvis. Let me know if she thinks we need to do US of pelvis after period resolves. Has been taking Augmentin and is currently having her periods. So she isn;t sure if the blood was from that? Still feels have some fullness, and does feel still like she has to urinate all the time. Ua returned abn, had some blood and lots of wbc and LE but cx negative. Is she having any sx at this time? documented in this encounter [facility] 03-14-2024 Telephone encounter Note Spoke with Mai and she is due again for her period next week, she said if it comes and is heavy as it was this last month she was going to call environmental coordinator to see if she needs to get back on the provera, or something else. I left it in her hands to call us and let us know . [facility] 03-14-2024 Telephone encounter Note I would finish the augmentin, may need to consider seeing environmental coordinator, likely return of period is contributing to the fullness in pelvis. Let me know if she thinks we need to do US of pelvis after period resolves. [facility] 03-14-2024 Telephone encounter Note Has been taking Augmentin and is currently having her periods. So she isn;t sure if the blood was from that? Still feels have some fullness, and does feel still like she has to urinate all the time. [facility] 03-13-2024 Telephone encounter Note Ua returned abn, had some blood and lots of wbc and LE but cx negative. Is she having any sx at this time? [facility] 03-10-2024 Telephone encounter Note Augmentin sent [facility] 03-10-2024 Miscellaneous Notes Augmentin sent Sent patient a portal message regarding her symptoms for possible UTI. Told her order for urinalysis placed but that you would probably send a script to pharmacy for her. documented in this encounter [facility] 03-10-2024 Telephone encounter Note Sent patient a portal message regarding her symptoms for possible UTI. Told her order for urinalysis placed but that you would probably send a script to pharmacy for her. [facility] 02-14-2023 Hospital Discharge instructions Jojo Terry PA-C - 02/14/2023 6:20 [...] your primary care provider's office and your HEALTHCARE CONSULTING MANAGER. Seek emergency medicine care with any worsening or heavy bleeding or signs and symptoms of severe anemia. The following attachments cannot be sent through Care Everywhere.Pulmonary Embolism (Kittitian)documented in this encounter [employer] Evaluation note Diagnosis Screening breast examination Other screening breast examination documented in this encounter [employer] Phone: evalslasms note* Diagnosis Screening mammogram for breast cancer documented in this encounter [employer] Phone: evalmoctip note* Diagnosis Screening mammogram for breast cancer documented in this encounter [employer] Work Phone: [email or web address] note* Diagnosis Bilateral pulmonary embolism (HCC)- Primary Other pulmonary embolism and infarction documented in this encounter [facility] [employer] note* Diagnosis Positive D-dimer Abnormal coagulation profile Dyspnea, unspecified type documented in this encounter [facility] noteNo assessment information available [facility] Work Phone: Evaluation note* Diagnosis Urinary tract infection without hematuria, site unspecified- Primary documented in this encounter [facility] HealthcareEvaluation note* Diagnosis Screening for malignant neoplasm of colon- Primary documented in this encounter [facility] HealthcareEvaluation note* Diagnosis Acute vaginitis- Primary Unspecified vaginitis and vulvovaginitis documented [facility]* Diagnosis Menorrhagia with regular cycle Adenomyosis Endometriosis of uterus documented in this encounter [facility] Instructions * Patient Instructions - Britany Lindquist LPN - 06/11/2017 1:57 PM EST Complete labs [...] FoundNo Family History Records Found Advance Directives Documents on File Type Date Recorded Patient Glass Bulb Machine Adjuster Expl anation Advance Directives and Living Will Power of Drying Machine Receiver Documents on File Type Date Recorded Patient Glass Bulb Machine Adjuster Expl anation ACP-Advance Directive ACP-Power of Drying Machine Receiver Advance Directive Response Recorded Date/ Time Advance Directives No December 23 12:37pm Reason for Referral Status Reason Specialty Diagnoses / Procedures Referre d By Contact Referred To Contact Open Radiology Diagnoses Nontoxic uninodular goiter Procedures US HEAD NECK SOFT TISSUE THYROID Rine, Kristina L [address] [place] [address] Status Reason Specialty Diagnoses / Procedures Referre d By Contact Referred To Contact Closed Radiology Diagnoses Breast cancer screening by mammogram Procedures BOB MEGHAN DIGITAL SCREEN SELF REFERRAL W OR WO CAD BILATERAL Rine, Kristina L [address] [place] [address] Status Reason Specialty Diagnoses / Procedures Referred By Contact Referred To Contact Authorized Radiology Diagnoses Screening breast examination Procedures BOB DIGITAL SCREEN W OR WO CAD BILATERAL Rine, Kristina L [address] [place] [address] Specialty Diagnoses / Procedures Referred By Contac t Referred To Contact Radiology Diagnoses Screening mammogram for breast cancer Procedures BOB MEGHAN DIGITAL SCREEN BILATERAL Rine, Kristina L [address] [place] [address] Referral ID Status Reason Start Date Expiration Date Visits Re quested Visits Authorized [id number] Closed 07/27/2021 07/27/2022 1 1 Referral ID Status Reason Start Date Expiration Date Visits Re quested Visits Authorized [id number] Closed 09/26/2022 09/26/2023 1 1 Specialty Diagnoses / Procedures Referred By Slime zafar Referred To Contact Radiology Diagnoses Positive D-dimer Dyspnea, unspecified type Procedures CT CHEST W CONTRAST rTisha Ennishel [address] [facility] [address] [place] [id number] Referral ID Status Reason Start Date Expiration Date V isits Requested Visits Authorized [id number] Pending Review 02/14/2023 02/14/2024 1 1 Additional Source Comments INFORMATION SOURCE (unrecogn ized section and content) DATE CREATED AUTHOR 11/27/2017 [facility] DATE CREATED AUTHOR AUTHOR'S ORGANIZ ATION 07/28/2021 [facility] dical Specialist DATE CREATED AUTHOR AUTHOR'S ORGANIZ ATION 10/14/2023 [facility] DATE CREATED AUTHOR AUTHOR'S ORGANIZ ATION 10/27/2023 [facility] DATE CREATED AUTHOR AUTHOR'S ORGANIZ ATION 12/07/2023 [facility] DATE CREATED AUTHOR AUTHOR'S ORGANIZ ATION 12/26/2023 [facility] DATE CREATED AUTHOR AUTHOR'S ORGANIZ ATION 05/07/2024 [facility] d[facility] Specialists EPIC Reason for Visit (unrecogniz ed section and content) Status Reason Specialty Diagnoses / Procedures Referred By Contact Referred To Contact Pending Review Radiology Diagnoses Nontoxic single thyroid nodule Procedures HCHG US,HEAD/NECK TISSUES,B-SCAN/REAL TIME Kristina Wilkerson [address] [facility] [address] [place] [address] [facility] Ultrasound [address] [place] [phone] Status Reason Specialty Diagnoses / Procedures Referre d By Contact Referred To Contact Open Radiology Diagnoses Encounter for screening mammogram for malignant neoplasm of breast Procedures HC MAMMOGRAM DIGITAL SCREEN BILAT Kristina Wilkerson [address] [facility] [address] [place] [address] [facility] [address] [place] [address] Status Reason Specialty Diagnoses / Procedures Referred By Contact Referred To Contact Pending Review Radiology Diagnoses Encounter for screening mammogram for malignant neoplasm of breast Procedures HC MAMMO SCREENING INCL CAD IF PERF Kristina Wilkerson [address] [place], [place] [id number] [facility] [address] [place] [address] Specialty Diagnoses / Procedures Referred By Contac t Referred To Contact Radiology Diagnoses Screening mammogram for breast cancer Procedures BOB MEGHAN DIGITAL SCREEN BILATERAL Kristina Wilkerson [address] [phone] Referral ID Status Reason Start Date Expiration Date Visits Re quested Visits Authorized [id number] Closed 07/27/2021 07/27/2022 1 1 Referral ID Status Reason Start Date Expiration Date Visits Re quested Visits Authorized [id number] Closed 09/26/2022 09/26/2023 1 1 Reason Comments Shortness of Breath Right calf pain and increased sob since labor day. Sent from CT for bilateral PE. Stopped taking control on Sunday02/09/2023 Specialty Diagnoses / Procedures Referred By Slime zafar Referred To Contact Radiology Diagnoses Positive D-dimer Dyspnea, unspecified type Procedures CT CHEST W CONTRAST park Cristina [address] [facility] [address] [place], [place] [id number] Referral ID Status Reason Start Date Expiration Date V isits Requested Visits Authorized [id number] Pending Review 02/14/2023 02/14/2024 1 1 Reason Onset Date Comments UTI 03/10/2024 Reason Onset Date Comments Results 03/13/2024 Reason Comments Colonoscopy Pt presents today fo r a colonoscopy consult. Pt denies/admits to: denies having a colonoscopy before. Pt denies abdominal pain. Pt denies rectal bleeding. Pt denies changes in bowel movements. Pt denies a family history of colon cancer that they know of. Pt denies any concern today. Reason Comments Menorrhagia Abdominal Cramping Care Teams (unrecognized sec tion and content) Hospital Pharmacy Technician Relationship Specialty Start Date End Date Kristina Wilkerson [address] [place] [address] PCP - General 11/23/14 Hospital Pharmacy Technician Relationship Specialty Start Date End Date Kristina Wilkerson [address] [place] [address] PCP - General 11/23/14 Hospital Pharmacy Technician Relationship Specialty Start Date End Date HalinaRoderick hollidaykarol Dan [address] [place] [address] PCP - General 11/23/14 Hospital Pharmacy Technician Relationship Specialty Start Date End Date Kristina Wilkerson Ni [address] [place] [address] PCP - General 11/23/14 Team Status: Inactive Member Role Status Dates Chato Sanches DO Attending Provider Active Start : December 21, 2023 End: December 21, 2023 Hospital Pharmacy Technician Relationship Specialty Start Date End Date Kristina Wilkerson SHEET METAL ENGINEER [address] [place] [address] PCP - [employer] 09/02/20 Jai Rhodes DO [address] [place] [address] PCP - General Family Medicine 12/12/22 Bonny Trejo CNM [address] [place] [facility] [place] [address] Obstetrics and Gynecology 11/21/22 Hospital Pharmacy Technician Relationship Specialty Start Date End Date Kristina Wilkerson SHEET METAL ENGINEER [address] [place] [address] PCP - [employer] 09/02/20 Jai Rhodes DO [address] [place] [address] PCP - General Family Medicine 12/12/22 Bonny Trejo CNM [address] [place] [address] Obstetrics and Gynecology 11/21/22 Hospital Pharmacy Technician Relationship Specialty Start Date End Date Kristina Wilkerson NP [address] [place] [address] PCP - [employer] 09/02/20 Jai Rhodes DO [address] [place] [address] PCP - General Family Medicine 12/12/22 Bonny Trejo CNM [address] [place] [address] Obstetrics and Gynecology 11/21/22 Hospital Pharmacy Technician Relationship Specialty Start Date End Date Kristina Wilkerson NP [address] [place] [address] PCP - [employer] 09/02/20 Jai Rhodes DO [address] [place] [address] PCP - General Family Medicine 12/12/22 Bonny Trejo CNM [address] [place] [address] Obstetrics and Gynecology 11/21/22 Hospital Pharmacy Technician Relationship Specialty Start Date End Date Kristina Wilkerson NP [address] [place] [address] PCP - [employer] 09/02/20 Jai Rhodes DO [address] [place] [address] PCP - General Family Medicine 12/12/22 Bonny Trejo CNM [address] [place] [address] Obstetrics and Gynecology 11/21/22 Hospital Pharmacy Technician Relationship Specialty Start Date End Date Kristina Wilkerson SHEET METAL ENGINEER [address] [place] [address] PCP - [employer] 09/02/20 Jai Rhodes DO [address] [place] [address] PCP - General Family Medicine 12/12/22 Bonny Trejo CNM [address] [place] [address] Obstetrics and Gynecology 11/21/22 Hospital Pharmacy Technician Relationship Specialty Start Date End Date Kristina Wilkerson SHEET METAL ENGINEER [address] [place] [address] PCP - [employer] 09/02/20 Jai Rhodes DO [address] [place] [address] PCP - General Family Medicine 12/12/22 Bonny Trejo CNM [address] [place] [address] Obstetrics and Gynecology 11/21/22 Ordered Prescriptions (unrec ognized section and content) [...] (Given - Provid er: Kate Maldonado RN) Goals (unrecognized section and content) Goals may be documented in a n alternate section FOR RECORDS PERTAINING TO PATIENTS WHO ARE [...] BE BASED ON THE PRIMARY CLINICAL RECORDS. [employer] provides no warranty or guarantee of the accuracy or completeness of information in this document.
[2024-05-20 08:38] VITALS: BP 117/75; PULSE 86; TEMP 36.7; O2SAT 98; BMI 28.3
[2024-05-20 08:41] LABS: HCG Qualitative NEGATIVE (NEGATIVE); Internal Control Within Normal Limits
[2024-05-20] MEDS: LACTATED RINGER'S SOLUTION 1,000 ML 50 ML IV (08:52)
--- NOTE | 2024-05-20 09:30 | W.PM.PROCNOT ---
Date of procedure: 05/20/24 Pre-op diagnosis: screening c-scope Post-op diagnosis: other (polypectomy at 20cm sigmoid colon ) Procedure: Previous colonoscopy: never procedure: colonoscopy polypectomy at 20cm sigmoid colon via cold forcep technique The patient was given IV conscious sedation.? The patient's SPO2 remained above 90% throughout the procedure. The colonoscope was inserted per rectum and advanced under direct vision to the cecum without difficulty.? The prep was good.? Findings: Terminal ileum os: normal Cecum/Ascending colon: normal Transverse colon: normal Descending/Sigmoid colon: small 2mm flat polyp removed completely via cold biopsy forceps Rectum/Anus: examined in normal and retroflexed positions and was normal Withdrawal Time was (minutes): 12 The colon was decompressed and the scope was removed.? The patient tolerated the procedure well. Recommendations/Plan: 1.? Lifestyle and dietary modifications as discussed 2.? F/U Biopsies 3.? F/U in 7-10 years pending pathology results 4.? Discussed with the family Anesthesia: MAC Surgeon: Arie Trujillo Estimated blood loss (mL): 1 Pathology: other (sigmoid polyp at 20CM) Condition: stable Disposition: PACU
[2024-05-20 10:15] VITALS: BP 107/66; PULSE 82; O2SAT 97
[2024-05-20 10:30] VITALS: BP 116/84; PULSE 93; O2SAT 97
[2024-05-20 10:45] VITALS: BP 106/79; PULSE 81; O2SAT 99
== END 2024-05-20 10:45 | disposition home or self-care (01) ==
PROVIDERS: PCP Nurse Practitioner; Visit Provider Surgery
PROC: (CPT 811; principal; 2024-05-20 09:30)
DX: Z12.11 Encounter for screening for malignant neoplasm of colon (principal); K63.5 Polyp of colon; E11.9 Type 2 diabetes mellitus without complications; Z79.84 Long term (current) use of oral hypoglycemic drugs; E78.5 Hyperlipidemia, unspecified; I10 Essential (primary) hypertension; E03.9 Hypothyroidism, unspecified
CPT/HCPCS: 45380; 36415; 84703; J2704

== ENCOUNTER 2024-09-30 13:31 | Outpatient (OUT) | payer BC, SELFPAY ==
--- NOTE | 2024-09-30 13:37 | ECG_ITS ---
[facility] Test Date: 2024-09-30 Pat Name: HERNANDO DURAND Department: Room: - Gender: Female Balance Assembler: : 1975 Requested By: PACO RAO Order Number: [id number] Reading MD: SCARLETT DENNEY M.D. Measurements Intervals [place] Rate: 67 P: 17 NH: 150 QRS: 3 QRSD: 84 T: 29 QT: 421 QTc: 446 Interpretive Statements SINUS RHYTHM WITH OCCASIONAL VENTRICULAR PREMATURE COMPLEXES Otherwise normal ECG Compared to ECG 10/09/2023 11:43:39 No significant changes Electronically Signed On 09-30-2024 18:44:02 EDT by SCARLETT DENNEY M.D.
[2024-09-30 14:15] LABS: Basophils Percent Auto 0.8 % (0.2-2.0); Eosinophils Absolute Auto 0.1 10^3/uL (0.0-0.7); Eosinophils Percent Auto 2.7 % (0.9-7.0); Hematocrit 44.4 % (36.0-48.0); Immature Granulocytes Abs Auto 0.01 10^3/uL (0.00-0.03); Immature Granulocytes Pct Auto 0.2 % (0.0-0.5); Lymphocytes Percent Auto 21.1 % (20.5-60.0); Mean Corpuscular HGB Conc 33.8 g/dL (29.9-35.2); Mean Corpuscular Hemoglobin 29.1 pg (26.7-34.0); Mean Corpuscular Volume 86.2 fL (81.0-99.0); Mean Platelet Volume 11.1 fL (9.5-13.5); Monocytes Absolute Auto 0.4 10^3/uL (0.3-0.8); Monocytes Percent Auto 8.5 % (1.7-12.0); Neutrophils Absolute Auto 3.2 10^3/uL (1.4-6.5); Neutrophils Percent Auto 66.7 % (43.0-75.0); Platelet Count 210 10^3/uL (150-450); Red Blood Count 5.15 10^6/uL (4.20-5.40); Red Cell Distribution Width 13.9 % (11.0-15.0); White Blood Count 4.8 10^3/uL (4.0-11.0)
[2024-09-30 14:25] LABS: Alanine Aminotransferase 27 U/L (14-59); Albumin Globulin Ratio 1.3; Albumin Level 4.2 g/dL (3.4-5.0); Alkaline Phosphatase 65 U/L (46-116); Aspartate Amino Transferase 17 U/L (15-37); BUN Creatinine Ratio 14.3; Bilirubin Direct 0.2 mg/dL (0.0-0.2); Bilirubin Total 1.4 mg/dL (0.2-1.0); Calcium 9.5 mg/dL (8.5-10.1); Carbon Dioxide 27.1 mmol/L (21.0-32.0); Chloride 104 mmol/L (98-107); Estimated GFR (African America >60 (>=60 mL/min/1.73m^2); Estimated GFR (Non-African Ame >60 (>=60 mL/min/1.73m^2); Globulin 3.3 g/dL; Glucose 92 mg/dL (74-106); Potassium 4.1 mmol/L (3.5-5.1); Sodium 140 mmol/L (136-145); Total Protein 7.5 g/dL (6.4-8.2)
[2024-09-30 14:34] LABS: INR 1.03; Partial Thromboplastin Time 26.3 sec (22.3-36.2); Prothrombin Time 10.9 sec (9.0-11.6)
== END 2024-09-30 13:32 | disposition home or self-care (01) ==
LOC: PST 13:32
PROVIDERS: PCP Nurse Practitioner; Visit Provider Obstetrics & Gynecology
DX: Z01.810 Encounter for preprocedural cardiovascular examination (principal); Z01.812 Encounter for preprocedural laboratory examination
CPT/HCPCS: 80048; 80076; 85025; 85610; 85730; 86850; 86900; 86901; 93005

== ENCOUNTER 2024-10-08 11:56 | Inpatient (IN) | payer BC, SELFPAY ==
[2024-09-30 13:56] VITALS: BP 113/77; PULSE 72; TEMP 36.5; O2SAT 99; BMI 30.9
[2024-10-08] VITALS (19 sets, daily range): BP systolic 113–128; BP diastolic 64–77; PULSE 65–84; TEMP 36.1–36.7; O2SAT 92–99; BMI 30.9
[2024-10-08 06:56] LABS: Basophils Percent Auto 0.6 % (0.2-2.0); Eosinophils Absolute Auto 0.2 10^3/uL (0.0-0.7); Eosinophils Percent Auto 3.3 % (0.9-7.0); Hematocrit 45.6 % (36.0-48.0); Immature Granulocytes Abs Auto 0.01 10^3/uL (0.00-0.03); Immature Granulocytes Pct Auto 0.2 % (0.0-0.5); Lymphocytes Absolute Auto 1.1 10^3/uL (1.2-3.8); Mean Corpuscular HGB Conc 32.9 g/dL (29.9-35.2); Mean Corpuscular Hemoglobin 28.9 pg (26.7-34.0); Mean Corpuscular Volume 87.9 fL (81.0-99.0); Mean Platelet Volume 11.4 fL (9.5-13.5); Monocytes Absolute Auto 0.4 10^3/uL (0.3-0.8); Monocytes Percent Auto 8.3 % (1.7-12.0); Neutrophils Absolute Auto 3.4 10^3/uL (1.4-6.5); Neutrophils Percent Auto 65.6 % (43.0-75.0); Platelet Count 184 10^3/uL (150-450); Red Blood Count 5.19 10^6/uL (4.20-5.40); Red Cell Distribution Width 13.9 % (11.0-15.0); White Blood Count 5.2 10^3/uL (4.0-11.0)
[2024-10-08 07:18] LABS: HCG Quantitative <1 mIU/mL
[2024-10-08] MEDS: LACTATED RINGER'S SOLUTION 1,000 ML 50 ML IV (07:25)
[2024-10-08] MEDS: FAMOTIDINE/PF 20 MG/2 ML VIAL IV (07:48)
[2024-10-08] MEDS: CEFAZOLIN SODIUM 2 GM/50 ML D5W PREMIX IV (08:33)
[2024-10-08] MEDS: LACTATED RINGER'S SOLUTION 1,000 ML 1000 ML IV (09:19)
--- NOTE | 2024-10-08 10:51 | P.ON_ITS ---
Brief Operative Note Date of procedure: 10/08/24 Pre-op diagnosis general: pelvic pain, enlarged uterus, pelvic pain, uterine f ibroid Post-op diagnosis: same as pre-op Procedure: NAME OF PROCEDURE: [ ]Total abdominal partial supracervical hysterectomy, with cystoscopy. PROCEDURE: Patient was taken back to the Operating Room where she was given general anesthesia without difficulty. She was then prepped and draped in the normal wes rile fashion. A Pfannenstiel skin incision was then made 2 cm above the symphysis and pubis and carried down to underlying rectus fascia using a Bovie. The fascia was incised in the midline and extended bilaterally using Rodriguez scissors. Two Griselda clamps were placed on the superior aspect of the fascia and dissected off the underlying rectus muscle. The same was performed on the inferior aspect as well. The muscle was then in the midline. The peritoneum was identified and entered bluntly. Peritoneum was then extended superiorly and inferiorly with good visualization of the bladder. An O'Ldnmlwan-D-Zgeibj retractor was placed into the patient's abdomen. The bowel was packed away with moist laparotomy sponges and the bladder blade was inserted. A Leahey tenaculum was placed on the patient's uterus and used for retraction. LigaSure apparatus was then used to come across the uteroovarian ligament on the patient's right side which was then cauterized and transected. This was carried down serially through the broad ligament and across the round ligament. The bladder flap was then created using the Metzenbaum scissors, and thebladder was easily dissected off the patient's lower uterine segment. A curved Sky was placed across the uterine artery on the right side which was clamped, transected, and suture ligated using #0 Monocryl. This was performed on the contralateral side as well. The bladder was further dissected and a Zeppelin clamp was then placed down along the cervix, dt patients body habitus, it was decided to leave a small portion of the cervix behined. This was transected and suture ligated using #0 Monocryl. This was performed on the contralateral side as well. The uterus was then amputated using Fidelina scissors. The patient's cervical stump was closed using #0 PDS in a running locked fashion and this was transfixed to the ipsilateral uterosacral and cardinal ligaments. Excellent hemostasis was assured. The patient's abdomen wascopiously irrigated using warm saline. Cystoscopy was performed. Bladder was intact. Efflux was noted from both ostia. Cystoscope was removed.After excellent hemostasis was assured, all instruments were removed from the patient's abdomen. The patient's peritoneum was closed using 3-0 Vicryl in a running fashion. The patient's fascia was closed using #0 Vicryl in a running fashion. The patient's skin was closed using 4-0 vicryl on a dwayne needle. The patient tolerated the procedure well. Sponge, lap, and needle counts were correct times two. Patient taken to the Recovery Room in stable condition Anesthesia: MAURY Surgeon: Chato Sanches Injection Molding Machine Setter: Regine Hassan Estimated blood loss (mL): 50 Pathology: other (uterus and cervix) Condition: stable Disposition: PACU Urinary Catheter Management Urinary Catheter Management Urethral: Cath placed during this visit: no
[2024-10-08] MEDS: HYDROMORPHONE HCL 0.5 MG/0.5 ML SYRINGE IV ×2 (11:23→11:43)
[2024-10-08] MEDS: LACTATED RINGER'S SOLUTION 1,000 ML 125 ML IV ×2 (11:25→16:47)
[2024-10-08] MEDS: ONDANSETRON PF 4 MG/2 ML VIAL IV ×3 (11:53→20:29)
--- NOTE | 2024-10-08 11:56 | PC.NURSE ---
Patient complaining of nausea gave dose of zofran
[2024-10-08] MEDS: CEFAZOLIN SODIUM/DEXTROSE,ISO 2 GM/50 ML PIGGYBACK IV ×2 (14:27→20:10)
[2024-10-08] MEDS: KETOROLAC TROMETHAMINE 30 MG/ML VIAL IVP ×2 (16:02→22:04)
[2024-10-08] MEDS: METOCLOPRAMIDE HCL 10 MG/2 ML VIAL IVP (16:45)
[2024-10-08] MEDS: OXYCODONE HCL/ACETAMINOPHEN 5MG/325MG 2 TAB PO (18:16)
[2024-10-08] MEDS: SIMETHICONE 80 MG TAB.CHEW PO (20:29)
[2024-10-09] VITALS: BP 96/57; PULSE 71; O2SAT 91
[2024-10-09] MEDS: METOCLOPRAMIDE HCL 10 MG/2 ML VIAL IVP ×2 (00:37→08:35)
[2024-10-09] MEDS: LACTATED RINGER'S SOLUTION 1,000 ML 125 ML IV (00:37)
[2024-10-09] MEDS: KETOROLAC TROMETHAMINE 30 MG/ML VIAL IVP (05:25)
[2024-10-09 05:32] VITALS: BP 113/68; PULSE 74; TEMP 37; O2SAT 93
[2024-10-09 05:38] LABS: Basophils Percent Auto 0.5 % (0.2-2.0); Eosinophils Percent Auto 0.6 % (0.9-7.0); Hematocrit 37.3 % (36.0-48.0); Hemoglobin 12.2 g/dL (12.0-16.0); Immature Granulocytes Abs Auto 0.02 10^3/uL (0.00-0.03); Immature Granulocytes Pct Auto 0.3 % (0.0-0.5); Lymphocytes Percent Auto 15.5 % (20.5-60.0); Mean Corpuscular HGB Conc 32.7 g/dL (29.9-35.2); Mean Corpuscular Hemoglobin 28.8 pg (26.7-34.0); Mean Corpuscular Volume 88.2 fL (81.0-99.0); Mean Platelet Volume 11.7 fL (9.5-13.5); Monocytes Absolute Auto 0.6 10^3/uL (0.3-0.8); Monocytes Percent Auto 8.4 % (1.7-12.0); Neutrophils Absolute Auto 4.9 10^3/uL (1.4-6.5); Neutrophils Percent Auto 74.7 % (43.0-75.0); Platelet Count 155 10^3/uL (150-450); Red Blood Count 4.23 10^6/uL (4.20-5.40); White Blood Count 6.5 10^3/uL (4.0-11.0)
[2024-10-09] MEDS: ENOXAPARIN SODIUM 40 MG/0.4 ML SYRINGE SUBQ (06:03)
--- NOTE | 2024-10-09 08:24 | P.GYNPN_ITS ---
CAT SCAN TECHNOLOGIST - PN: Subj Post-Op Subjective: patient reports feeling better, patient has no complaints, patient desires discharge, pain is well controlled and patient is tolerating oral intake Exam Constitutional Vital Signs, click to edit/add: Last Vital Signs Temp 98.6 F 10/09/24 05:32 Pulse 74 10/09/24 05:32 Resp 16 10/09/24 05:32 BP 113/68 10/09/24 05:32 Pulse Ox 93 L 10/09/24 05:32 O2 Del Method Room Air 10/09/24 05:32 O2 Flow Rate 2 10/08/24 15:08 Documenting provider has reviewed patient's vital signs: yes Common normals: no apparent distress Respiratory Common normals: clear to auscultation bilaterally Cardio Common normals: regular rate and regular rhythm GI Common normals: Normal to inspection, nondistended, normoactive bowel sounds present Extremity Common normals: no clubbing, cyanosis or edema and no calf tenderness Results Labs Labs: Short CBC 10/09/24 Range/Units 05:20 WBC 6.5 (4.0-11.0) 10^3/uL Hgb 12.2 (12.0-16.0) g/dL Hct 37.3 (36.0-48.0) % Plt Count 155 (150-450) 10^3/uL CAT SCAN TECHNOLOGIST - A/P Postoperative Procedures: Procedures Operation Date: 10/08/24 08:00 Actual Procedure Side Surgeon p ELVIRA ROBLEDO Not Applicable Chato Sanches DO Postoperative day: 1 Postoperative status CAT SCAN TECHNOLOGIST: doing well Post-operative plan CAT SCAN TECHNOLOGIST: routine post-op care, discharge and other (rx on chart, precautions given) Fall Risk Details Pa fall scale risk level: Low Fall Risk Current medications: Current Medications Al Hydroxide/Mg Hydroxide (Magnesium Hydroxide 2,400 Mg/10 Ml Oral.Susp) 2,400 mg PO ONCE ONE Stop: 10/09/24 09:01 Docusate Sodium (Docusate Sodium 100 Mg Capsule) 100 mg PO BID PRN PRN Reason: Constipation Enoxaparin Sodium (Enoxaparin Sodium 40 Mg/0.4 Ml Syringe) 40 mg SUBQ Q24H JARED Last Admin: 10/09/24 06:03 Dose: 40 mg Lactated Ringer's (Lactated Ringers) 1,000 mls @ 125 mls/hr IV .Q8H JARED Last Admin: 10/09/24 00:37 Dose: 125 mls/hr Ibuprofen (Ibuprofen 400 Mg Tablet) 800 mg PO Q6H PRN PRN Reason: Pain Ketorolac Tromethamine (Ketorolac Tromethamine 30 Mg/Ml Vial) 30 mg IVP Q6H PRN PRN Reason: Pain Last Admin: 10/09/24 05:25 Dose: 30 mg Metoclopramide HCl (Metoclopramide Hcl 10 Mg/2 Ml Vial) 10 mg IVP Q8H JARED Last Admin: 10/09/24 00:37 Dose: 10 mg Ondansetron HCl (Ondansetron Pf 4 Mg/2 Ml Vial) 4 mg IV Q4H PRN PRN Reason: Nausea Last Admin: 10/08/24 20:29 Dose: 4 mg Oxycodone/Acetaminophen (Oxycodone Hcl/Acetaminophen 5mg/325mg) 2 tab PO Q6H PRN PRN Reason: Pain Last Admin: 10/08/24 18:16 Dose: 2 tab Simethicone (Simethicone 80 Mg Tab.Chew) 80 mg PO PCHS PRN PRN Reason: Abdominal Distention Last Admin: 10/08/24 20:29 Dose: 80 mg Temazepam (Temazepam 15 Mg Capsule) 30 mg PO QHS PRN PRN Reason: Sleep Time Spent With Patient Time: Total time spent is greater than 50% in coordination of care (as documented) at patient's floor/unit and/or counseling patient: Time with patient: less than 15 minutes Urinary Catheter Management Urinary Catheter Management Urethral: Cath placed during this visit: no
[2024-10-09] MEDS: MAGNESIUM HYDROXIDE 2,400 MG/10 ML ORAL.SUSP 2400 MG PO (08:35)
[2024-10-09] MEDS: SIMETHICONE 80 MG TAB.CHEW PO ×2 (08:35→13:34)
[2024-10-09 08:42] VITALS: BP 112/68; PULSE 70; TEMP 36.7; O2SAT 94
[2024-10-09] MEDS: OXYCODONE HCL/ACETAMINOPHEN 5MG/325MG 2 TAB PO (09:30)
[2024-10-09 12:11] LABS: Hematocrit 38.9 % (36.0-48.0); Hemoglobin 12.8 g/dL (12.0-16.0)
== END 2024-10-09 13:35 | disposition home or self-care (01) | DRG 743 ==
LOC: MS 10-09 08:56
PROVIDERS: Admitting Provider Obstetrics & Gynecology; PCP Nurse Practitioner; Visit Provider Obstetrics & Gynecology
PROC: 0UT90ZL Resection of Uterus, Supracervical, Open Approach (ICD-10-PCS; principal; 2024-10-08 08:00)
DX: D25.9 Leiomyoma of uterus, unspecified (principal); R10.2 Pelvic and perineal pain; E78.00 Pure hypercholesterolemia, unspecified; N92.0 Excessive and frequent menstruation with regular cycle; N94.6 Dysmenorrhea, unspecified; N94.10 Unspecified dyspareunia; E11.9 Type 2 diabetes mellitus without complications; K21.9 Gastro-esophageal reflux disease without esophagitis; I10 Essential (primary) hypertension; E06.3 Autoimmune thyroiditis; E66.9 Obesity, unspecified; Z79.899 Other long term (current) drug therapy; Z79.890 Hormone replacement therapy; Z79.84 Long term (current) use of oral hypoglycemic drugs; Z68.30 Body mass index [BMI] 30.0-30.9, adult; Z86.718 Personal history of other venous thrombosis and embolism; Z86.711 Personal history of pulmonary embolism
CPT/HCPCS: 36415; 84702; 85014; 85018; 85025; 94667; 94668; J0131; J0690; J1100; J1171; J1650; J1885; J2250; J2371; J2405; J2704; J2765; J3010; J3490